=== PATIENT | male | born 1955 | race Caucasian/White ===

== ENCOUNTER 2016-10-01 14:13 | Emergency (ER) ==
[2016-10-01 14:21] VITALS: BP 150/81
[2016-10-01] MEDS ORDERED: TORADOL IM ONE (14:49)
[2016-10-01] MEDS ORDERED: TORADOL ONE (14:50)
--- NOTE | 2016-10-01 14:50 | PROVIDER DOCUMENTATION ---
HPI-General Adult - General Source: patient - History of Present Illness -Gen Adult Nature of Presenting Problems: 61 YOM PRESENTS TO ER WITH CC OF FEVER X 2 DAY PT REPORTS HOME HEALTH CHECKED IT AND IT WAS 101.00. DENIES TAKING ANY THING FOR IT. PT REPORTS TAKE CHRONIC PAIN MEDICATIONS FOR RA DIDNT NAME THE PRESCRIPTION. PT ALSO COMPLAINS OF CHILLS ,INSOMNIA,COUGH AND HEADACHE. Location of Pain/Injury: reports: generalized Quality of Pain: reports: aching Severity: reports: moderate Onset/Duration: reports: 2 days ago Timing: reports: still present Similar Symptoms Previously?: No Recently seen or treated by another doctor?: No <Zenaida Hernandez - Last Filed: 10/01/16 16:40> <Steve Ernst - Last Filed: 10/01/16 16:46> - General Chief Complaint: Flu Symptoms Stated Complaint: FLU SX Time Seen by Provider: 10/01/16 14:46 Allergies/Adverse Reactions: Patient Allergies Allergy/AdvReac Type Severity Reaction Status Date / Time No Known Allergies Allergy Verified 10/06/15 22:07 Home Medications: Home Medication List Medication Instructions Recorded Confirmed Last Taken Type Albuterol 2.5MG/Ipratrop 0.5MG 3 ml INH RTTID 10/06/15 05/29/16 05/28/16 20:00 History [Dutashib (A & A)] Amlodipine Besylate 10 mg PO DAILY 10/06/15 05/29/16 05/29/16 06:30 History Aspirin 325 mg PO DAILY 10/06/15 05/29/16 05/29/16 06:30 History Cetirizine HCl [Zyrtec] 10 mg PO DAILY 10/06/15 05/29/16 05/29/16 06:30 History Escitalopram Oxalate [Lexapro] 20 mg PO DAILY 10/06/15 05/29/16 05/29/16 06:30 History Hydralazine HCl 100 mg PO TID 10/06/15 05/29/16 05/29/16 06:30 History Omeprazole 40 mg PO DAILY 10/06/15 05/29/16 05/29/16 06:30 History Pravastatin Sodium 20 mg PO QHS 10/06/15 05/29/16 05/28/16 20:00 History Metoprolol Succinate E.r. [Toprol 100 mg PO DAILY 05/29/16 05/29/16 05/29/16 06: 30 History Xl] Hydrocodone/APAP 7.5 mg/325 mg 1 each PO Q6H PRN PRN #20 tablet 06/01/16 Unknown Rx [[place]-7.5] Isosorbide Mononitrate E.r. [Imdur] 30 mg PO DAILY #30 tablet 06/01/16 Unknown Rx Review of Systems - Adult - REVIEW OF SYSTEMS - ADULT Constitutional: reports: chills, fever. denies: fatique, night sweats, weight loss Eyes: reports: no symptoms reported Ears, Nose, Mouth & Throat: denies: ear pain, sinus problem, throat pain Cardiovascular: denies: chest pain, irregular heart rate, orthopnea, syncope Respiratory: reports: cough. denies: pleurisy, shortness of breath, wheezing Gastrointestinal: denies: abdominal pain, diarrhea, nausea, vomiting Genitourinary: reports: no symptoms reported Musculoskeletal: reports: other (MYALGIAS). denies: joint pain, joint swelling , muscle aches Integumentary: reports: no symptoms reported Neurological: reports: headache/migraines. denies: dizziness/vertigo, paresthesia, seizure, slurred speech Psychiatric: reports: insomnia. denies: alcohol/drug dependence, depression, emotional problems Endocrine: reports: no symptoms reported Hematologic/Lymphatic: reports: no symptoms reported Allergic/Immunologic: reports: no symptoms reported All Other Systems: Reviewed and Negative <Zenaida Hernandez - Last Filed: 10/01/16 16:40> Past History - Adult - PAST MEDICAL HISTORY-ADULT Review of Records: reports: Nursing Assessment Review Major Childhood Illnesses: reports: denies history Cardiovascular: reports: HTN, hyperlipidemia Respiratory: reports: asthma, COPD Gastrointestinal: reports: GERD, ulcer Musculoskeletal: reports: arthritis, neck/back injury (neck fracture), other ( sinus fracture) Neurological: reports: TIA - PRIOR SURGERIES/PROCEDURES Surgical/Procedure History: reports: joint replacement - IMMUNIZATION STATUS Childhood Immunizations: See Nurse Assessment Flu Vaccine: See Nurse Assessment - SOCIAL HISTORY Smoking: cigarettes, less than 1 pack/day Provider spent 3-5 mins advising pt. on dangers of tobacco.: Discussed manners to quit use, and f/u contacts for add'l counseling. Substance Use: none/never <Zenaida Hernandez - Last Filed: 10/01/16 16:40> Physical Exam-General - PHYSICAL EXAM-ADULT Initial Vital Signs Reviewed: Yes - CONSTITUTIONAL General Appearance: alert, no apparent distress. negative: appears well (ILL APPEARING) - EYES Eyes: PERRL/EOMI - HEAD, EARS, NOSE, MOUTH & THROAT HENMT: moist mucous membranes - NECK Neck: non-tender, full range of motion, supple, normal inspection - RESPIRATORY Respiratory: chest non-tender, no pleuratic chest pain, no respiratory distress , no accessory muscle use, rhonchi (MILD RHONCHI LOWER BASES) - CARDIOVASCULAR Cardiovascular: regular rate, rhythm, no edema, no gallop, no JVD, no murmur - GASTROINTESTINAL (ABDOMEN) Abdominal Exam: non tender, soft, no organomegaly, no pulsatile mass - MUSCULOSKELETAL Extremity: normal range of motion, non-tender - SKIN Integumentary: normal color, normal turgor, warm/dry - PSYCHIATRIC Psych/Mental Status: normal mood/affect, normal thought content, normal thought process, oriented x 3 <DavidZenaida - Last Filed: 10/01/16 16:40> Progress - PLAN OF CARE/RESULTS Progress/Plan/Lab Results: Orders Category Date Time Status cxr [CHEST-2 VIEWS] [RAD] Stat Exams 10/01/16 14:45 Ordered BLOOD CULTURE [BLDCUL] Stat Lab 10/01/16 14:48 Ordered CBC WITH ELECTRONIC DIFF [HEME] Stat Lab 10/01/16 14:46 Ordered CMP [COMPREHENSIVE METABOLIC PANEL] [CHEM] Stat Lab 10/01/16 14:46 Ordered Flu [INFLUENZA SCREEN PL] Stat Lab 10/01/16 14:20 Received LACTATE, PLASMA [CHEM] Stat Lab 10/01/16 14:49 Uncollected UA NIMS W/REFLEX CULT [URINALYSIS] Stat Lab 10/01/16 14:47 Uncollected UDS [URINE DRUG SCREEN] Stat Lab 10/01/16 14:47 Uncollected Vital Signs - 24 hr 10/01/16 14:18 Temperature 99.4 F Pulse Rate 62 Respiratory 18 Rate Blood Pressure 150/81 O2 Sat by Pulse 100 Oximetry Laboratory Tests 10/01/16 10/01/16 10/01/16 14:20 15:00 15:00 WBC 6.18 RBC 5.50 Hgb 16.6 Hct 47.4 MCV 86.2 MCH 30.2 MCHC 35.0 RDW Std Deviation 14.2 Plt Count 138 MPV 10.6 H Immature Gran % (Auto) 0.2 Neut % (Auto) 67.8 Lymph % (Auto) 24.3 [place] % (Auto) 7.1 Eos % (Auto) 0.3 Baso % (Auto) 0.3 Immature Gran # (Auto) 0.01 Neut # (Auto) 4.19 Lymph # (Auto) 1.50 [place] # (Auto) 0.44 Eos # (Auto) 0.02 Baso # (Auto) 0.02 Sodium 130 L Potassium 3.9 Chloride 92 L Carbon Dioxide 25 Anion Gap 13 BUN 13 Creatinine 1.1 Estimated GFR/1.73 m2 > 60 BUN/Creatinine Ratio 12 Glucose 85 Calculated Osmolality 260 Calcium 9.6 Total Bilirubin 0.40 AST 379 H ALT 592 H Alkaline Phosphatase 56 Total Protein 7.7 Albumin 4.6 Globulin 3.0 Albumin/Globulin Ratio 1.0 Influenza A (Rapid) NEGATIVE Influenza B (Rapid) NEGATIVE Laboratory Tests 10/01/16 10/01/16 10/01/16 14:20 15:00 15:00 WBC 6.18 RBC 5.50 Hgb 16.6 Hct 47.4 MCV 86.2 MCH 30.2 MCHC 35.0 RDW Std Deviation 14.2 Plt Count 138 MPV 10.6 H Immature Gran % (Auto) 0.2 Neut % (Auto) 67.8 Lymph % (Auto) 24.3 [place] % (Auto) 7.1 Eos % (Auto) 0.3 Baso % (Auto) 0.3 Immature Gran # (Auto) 0.01 Neut # (Auto) 4.19 Lymph # (Auto) 1.50 [place] # (Auto) 0.44 Eos # (Auto) 0.02 Baso # (Auto) 0.02 Sodium 130 L Potassium 3.9 Chloride 92 L Carbon Dioxide 25 Anion Gap 13 BUN 13 Creatinine 1.1 Estimated GFR/1.73 m2 > 60 BUN/Creatinine Ratio 12 Glucose 85 Calculated Osmolality 260 Calcium 9.6 Total Bilirubin 0.40 AST 379 H ALT 592 H Alkaline Phosphatase 56 Total Protein 7.7 Albumin 4.6 Globulin 3.0 Albumin/Globulin Ratio 1.0 Plasma Lactate Urine Source Urine Color Urine Clarity Urine Turbidity Urine pH Ur Specific [place] Urine Protein Ur Glucose (Stick) Urine Ketones Ur Ketones (Stick) Urine Blood Urine Nitrite Urine Bilirubin Urine Urobilinogen Urobilinogen Dipstick Urine Leukocytes Urine WBC (Auto) Urine RBC (Auto) U Epithel Cells (Auto) Urine Bacteria (Auto) Urine Microscopic RBC Urine WBC Ur Epithelial Cells Urine Crystals Urine Bacteria Urine Casts Urine Yeast Urine Glucose Urine Opiates Screen Ur Oxycodone Screen Urine Methadone Screen Ur Barbituates Screen Ur Tricyclics Screen Ur Phencyclidine Scrn Ur Amphetamines Screen U Methamphetamines Scrn Urine MDMA Screen U Benzodiazepines Scrn Urine Cocaine Screen U Cannabinoids Screen Influenza A (Rapid) NEGATIVE Influenza B (Rapid) NEGATIVE 10/01/16 10/01/16 10/01/16 15:00 15:00 15:30 WBC RBC Hgb Hct MCV MCH MCHC RDW Std Deviation Plt Count MPV Immature Gran % (Auto) Neut % (Auto) Lymph % (Auto) [place] % (Auto) Eos % (Auto) Baso % (Auto) Immature Gran # (Auto) Neut # (Auto) Lymph # (Auto) [place] # (Auto) Eos # (Auto) Baso # (Auto) Sodium Potassium Chloride Carbon Dioxide Anion Gap BUN Creatinine Estimated GFR/1.73 m2 BUN/Creatinine Ratio Glucose Calculated Osmolality Calcium Total Bilirubin AST ALT Alkaline Phosphatase Total Protein Albumin Globulin Albumin/Globulin Ratio Plasma Lactate 1.0 Urine Source Cancelled CLEAN CATCH Urine Color Cancelled YELLOW Urine Clarity CLEAR Urine Turbidity Cancelled Urine pH Cancelled 6.5 Ur Specific [place] Cancelled 1.015 Urine Protein Cancelled TRACE A Ur Glucose (Stick) Cancelled Urine Ketones NEGATIVE Ur Ketones (Stick) Cancelled Urine Blood Cancelled NEGATIVE Urine Nitrite Cancelled NEGATIVE Urine Bilirubin Cancelled NEGATIVE Urine Urobilinogen NORMAL Urobilinogen Dipstick Cancelled Urine Leukocytes Cancelled Urine WBC (Auto) Cancelled Urine RBC (Auto) Cancelled U Epithel Cells (Auto) Cancelled Urine Bacteria (Auto) Cancelled Urine Microscopic RBC Not Reportable Urine WBC NEGATIVE Ur Epithelial Cells <10 Urine Crystals NONE SEEN Urine Bacteria 1+ Urine Casts NONE SEEN Urine Yeast NONE SEEN Urine Glucose NEGATIVE Urine Opiates Screen Ur Oxycodone Screen Urine Methadone Screen Ur Barbituates Screen Ur Tricyclics Screen Ur Phencyclidine Scrn Ur Amphetamines Screen U Methamphetamines Scrn Urine MDMA Screen U Benzodiazepines Scrn Urine Cocaine Screen U Cannabinoids Screen Influenza A (Rapid) Influenza B (Rapid) 10/01/16 15:30 WBC RBC Hgb Hct MCV MCH MCHC RDW Std Deviation Plt Count MPV Immature Gran % (Auto) Neut % (Auto) Lymph % (Auto) [place] % (Auto) Eos % (Auto) Baso % (Auto) Immature Gran # (Auto) Neut # (Auto) Lymph # (Auto) [place] # (Auto) Eos # (Auto) Baso # (Auto) Sodium Potassium Chloride Carbon Dioxide Anion Gap BUN Creatinine Estimated GFR/1.73 m2 BUN/Creatinine Ratio Glucose Calculated Osmolality Calcium Total Bilirubin AST ALT Alkaline Phosphatase Total Protein Albumin Globulin Albumin/Globulin Ratio Plasma Lactate Urine Source Urine Color Urine Clarity Urine Turbidity Urine pH Ur Specific [place] Urine Protein Ur Glucose (Stick) Urine Ketones Ur Ketones (Stick) Urine Blood Urine Nitrite Urine Bilirubin Urine Urobilinogen Urobilinogen Dipstick Urine Leukocytes Urine WBC (Auto) Urine RBC (Auto) U Epithel Cells (Auto) Urine Bacteria (Auto) Urine Microscopic RBC Urine WBC Ur Epithelial Cells Urine Crystals Urine Bacteria Urine Casts Urine Yeast Urine Glucose Urine Opiates Screen NONE DETECTED Ur Oxycodone Screen NONE DETECTED Urine Methadone Screen NONE DETECTED Ur Barbituates Screen NONE DETECTED Ur Tricyclics Screen NONE DETECTED Ur Phencyclidine Scrn NONE DETECTED Ur Amphetamines Screen NONE DETECTED U Methamphetamines Scrn NONE DETECTED Urine MDMA Screen NONE DETECTED U Benzodiazepines Scrn NONE DETECTED Urine Cocaine Screen NONE DETECTED U Cannabinoids Screen NONE DETECTED Influenza A (Rapid) Influenza B (Rapid) - XRAY 1 XRAY: Bilateral XRAY Study: Chest Impression: Normal XRAY Interpretation: NAD <Zenaida Hernandez - Last Filed: 10/01/16 16:40> - REASSESSMENT Reassessment #1 Time Reassessed: 16:40 (discussed fu on liver and getting off norco because of the tylenol, get results of hep panal from her doctor) Status: improving <Steve Ernst - Last Filed: 10/01/16 16:46> Departure - Departure Time of Disposition Order: 16:40 Certified Medical Emergency: Emergent <Zenaida Hernandez - Last Filed: 10/01/16 16:40> - Departure Time of Disposition Order: 16:46 Certified Medical Emergency: Emergent <Steve Ernst - Last Filed: 10/01/16 16:46> - Departure DIAGNOSIS: Viral syndrome Disposition: HOME 01 Condition: Stable Additional Instructions: FOLLOW UP WITH PCP IF SYMPTOMS CONTINUE ED Follow Up Instructions: You have been treated by a care provider in the Emergency Department. These instructions are being provided to you so you can have an understanding of how to care for yourself upon discharge. Upon discharge from the Emergency Department, you are responsible for making arrangements for follow-up care by a physician of your choice. Take all prescribed medications as directed. Return to the Emergency Department immediately for any new or worsening symptoms. You may call the Physician Referral phone number at [phone] to obtain a list of Physicians who are taking new patients. Referrals: Sally Baires CRNP [Primary Care Provider] - Attestation - Scribe Verification/Attestation Scribe:: Zenaida Hernandez Acting as Scribe for:: Steve Ernst Scribe documention review:: This chart was documented by a scribe and accurately reflects the service the provider performed and the decisions made by the provider. <Zenaida Hernandez - Last Filed: 10/01/16 16:40> Physician Attestation
[2016-10-01 15:13] LABS: MANUAL DIFF NEEDED? NO
[2016-10-01 15:20] LABS: BASO% 0.3 % (0.0-0.8); EOS# 0.02 X1000 (0.0-0.7); EOS% 0.3 % (0.0-10.0); HEMATOCRIT 47.4 % (42.0-52.0); HEMOGLOBIN 16.6 g/dL (14.0-18.0); IMM GRAN# 0.01 X1000 (0.0-0.04); IMM GRAN% 0.2 % (0.0-0.5); LYMPH% 24.3 % (20.5-51.1); MCH 30.2 PG (27-31); MCV 86.2 FL (81-99); MONO# 0.44 X1000 (0.11-0.59); MONO% 7.1 % (1.7-9.3); MPV 10.6 FL (7.4-10.4); NEUT% 67.8 % (42.2-75.2); PLT 138 X1000 (130-400)
[2016-10-01 15:32] LABS: AGAP 13; ALBUMIN 4.6 g/dL (3.5-5.0); ALKALINE PHOSPHATASE 56 U/L (32-122); BUN 13 mg/dL (8-22); CALCIUM 9.6 mg/dL (8.8-10.2); CHLORIDE 92 mmol/L (98-107); COSMO 260; GOT 379 U/L (10-34); GPT 592 U/L (10-44); POTASSIUM 3.9 mmol/L (3.5-5.1); SODIUM 130 mmol/L (136-145); TCO2 25 mmol/L (25-35); TOTAL PROTEIN 7.7 g/dL (6.3-8.3)
[2016-10-01 15:50] LABS: URINE CULTURE PL NEEDED? NO; URINE SOURCE CLEAN CATCH
[2016-10-01 16:01] LABS: BILIRUBIN URINE NEGATIVE (NEGATIVE); BLOOD URINE NEGATIVE (NEGATIVE); CLARITY CLEAR (CLEAR); COLOR YELLOW; GLUCOSE URINE NEGATIVE (NEGATIVE); LEUKOCYTES URINE NEGATIVE (NEGATIVE); NITRITE URINE NEGATIVE (NEGATIVE); PH URINE 6.5; PROTEIN URINE TRACE mg/dL (NEGATIVE); SP GRAVITY URINE 1.015; UROBILINOGEN URINE NORMAL
[2016-10-01 16:02] LABS: UR AMPHETAMINES QUAL NONE DETECTED (NONE DETECT); UR BARBITUATES QUAL NONE DETECTED (NONE DETECT); UR BENZODIAZEPIN QUAL NONE DETECTED (NONE DETECT); UR CANNABINOIDS QUAL NONE DETECTED (NONE DETECT); UR COCAINE QUAL NONE DETECTED (NONE DETECT); UR MDMA QUAL NONE DETECTED (NONE DETECT); UR METHADONE QUAL NONE DETECTED (NONE DETECT); UR METHAMPHETAMINE QUAL NONE DETECTED (NONE DETECT); UR OPIATES QUAL NONE DETECTED (NONE DETECT); UR OXYCODONE QUAL NONE DETECTED (NONE DETECT); UR PCP QUAL NONE DETECTED (NONE DETECT); UR TCA QUAL NONE DETECTED (NONE DETECT)
--- NOTE | 2016-10-01 16:03 | Diag Imaging Result Document ---
PROCEDURE NAME: CHEST-2 VIEWS - 10/01/2016 FRONTAL AND LATERAL CHEST, TWO VIEWS: COMPARISON: 05/29/2016. FINDINGS: The lungs are well expanded. The heart is not enlarged. The vessels are not distended. There are no infiltrates. No pleural effusions. Mild scoliosis. IMPRESSION: No pneumonia.
[2016-10-01 16:13] LABS: URINE CAST NONE SEEN /LPF; URINE CRYSTAL NONE SEEN /HPF; URINE EPITHELIAL CELLS <10 /HPF (<10)
== END 2016-10-01 17:02 | disposition home or self-care (01) ==
LOC: P.ED 14:13
DX: B34.9 Viral infection, unspecified (principal); R50.9 Fever, unspecified; M06.9 Rheumatoid arthritis, unspecified; R05 Cough; R51 Headache; M79.1 Myalgia; I10 Essential (primary) hypertension; E78.5 Hyperlipidemia, unspecified; J45.909 Unspecified asthma, uncomplicated; J44.9 Chronic obstructive pulmonary disease, unspecified; K21.9 Gastro-esophageal reflux disease without esophagitis; M19.90 Unspecified osteoarthritis, unspecified site; Z79.82 Long term (current) use of aspirin; F17.210 Nicotine dependence, cigarettes, uncomplicated; Z79.899 Other long term (current) drug therapy; Z71.6 Tobacco abuse counseling; Z86.73 Personal history of transient ischemic attack (TIA), and cerebral infarction without residual deficits
CPT/HCPCS: 71020; 80053; 80074; 80305; 81001; 83605; 85025; 87040; 87804; 96372; J1885

== ENCOUNTER 2018-07-31 11:03 | Inpatient (IN) ==
[2018-07-31] MEDS ORDERED: NS 1,000 ML IV ONE ×2 (11:21→17:12)
[2018-07-31] MEDS ORDERED: ATIVAN IV ONE ×2 (11:21→13:45)
[2018-07-31] MEDS ORDERED: LABETALOL IV ONE (11:23)
[2018-07-31 11:49] LABS: URINE SOURCE CLEAN CATCH
[2018-07-31 11:52] LABS: BASO# 0.03 X1000 (0.0-0.2); BASO% 0.7 % (0.0-0.8); EOS# 0.04 X1000 (0.0-0.7); EOS% 0.9 % (0.0-10.0); HEMATOCRIT 42.6 % (42.0-52.0); MCH 30.9 PG (27-31); MCHC 35.2 g/dL (33-37); MCV 87.8 FL (81-99); MONO# 0.27 X1000 (0.11-0.59); MPV 11.1 FL (7.4-10.4); NEUT# 2.84 X1000 (1.4-6.5); NEUT% 63.4 % (42.2-75.2); PLT 140 X1000 (130-400); RBC 4.85 XMIL (4.7-6.1); WBC 4.48 X1000 (4.8-10.8)
[2018-07-31 11:54] LABS: BILIRUBIN URINE NEGATIVE (NEGATIVE); BLOOD URINE NEGATIVE (NEGATIVE); CLARITY CLEAR (CLEAR); COLOR YELLOW; GLUCOSE URINE NEGATIVE (NEGATIVE); KETONE URINE NEGATIVE (NEGATIVE); LEUKOCYTES URINE NEGATIVE (NEGATIVE); NITRITE URINE NEGATIVE (NEGATIVE); PH URINE 6.5; PROTEIN URINE NEGATIVE (NEGATIVE); SP GRAVITY URINE <= 1.005; UROBILINOGEN URINE 0.2 EU/dL (0.2-1.0)
[2018-07-31 12:11] LABS: AGAP 17; ALB/GLOB RATIO 1.4; ALKALINE PHOSPHATASE 62 U/L (32-122); AMYLASE 68 U/L (20-200); BUN 6 mg/dL (8-22); CALCIUM 9.2 mg/dL (8.8-10.2); CHLORIDE 96 mmol/L (98-107); COSMO 275; CREATININE 0.8 mg/dL (0.7-1.2); ESTIMATED GFR > 60; GLUCOSE 131 mg/dL (70-104); GOT 140 U/L (10-34); GPT 95 U/L (10-44); LIPASE 35 U/L (13-60); MAGNESIUM 1.6 mg/dL (1.5-2.7); SODIUM 138 mmol/L (136-145); TCO2 25 mmol/L (25-35); TOTAL BILIRUBIN 0.41 mg/dL (0.20-1.00); TOTAL PROTEIN 6.8 g/dL (6.3-8.3)
[2018-07-31 12:11] LABS: UR AMPHETAMINES QUAL NONE DETECTED (NONE DETECT); UR BARBITUATES QUAL NONE DETECTED (NONE DETECT); UR BENZODIAZEPIN QUAL NONE DETECTED (NONE DETECT); UR CANNABINOIDS QUAL NONE DETECTED (NONE DETECT); UR COCAINE QUAL NONE DETECTED (NONE DETECT); UR METHADONE QUAL NONE DETECTED (NONE DETECT); UR OPIATES QUAL NONE DETECTED (NONE DETECT); UR OXYCODONE QUAL NONE DETECTED (NONE DETECT); UR PCP QUAL NONE DETECTED (NONE DETECT)
[2018-07-31 12:25] LABS: URINE BACTERIA NEGATIVE /HFP; URINE EPITHELIAL CELLS <10 /HPF (<10); URINE RBC <10 /HPF (<10); URINE WBC <10 /HPF (<10)
[2018-07-31] MEDS ORDERED: NORVASC PO ONE (13:45)
[2018-07-31] MEDS ORDERED: APRESOLINE IV ONE (13:45)
[2018-07-31] MEDS ORDERED: COMPAZINE IV ONE (15:08)
[2018-07-31] MEDS ORDERED: ZOFRAN IV PRN (16:10)
[2018-07-31] MEDS ORDERED: NS NEB INH SCH (17:12)
[2018-07-31] MEDS: NS 1,000 ML IV SCH (18:30)
[2018-07-31] MEDS: PROTONIX IV SCH (18:31)
[2018-07-31] MEDS: LOVENOX SUBQ SCH (18:31)
[2018-07-31] MEDS: NICODERM PATCH TD PRN (18:37)
[2018-07-31] MEDS ORDERED: NORCO-10 PO PRN (18:41)
[2018-07-31] MEDS: NORCO-10 PO PRN (19:03)
--- NOTE | 2018-07-31 19:55 | Diag Imaging Result Doc PS360 ---
CHEST-2 VIEWS - 07/31/2018 INDICATION: hypoxia COMPARISON: 01/19/2018 FINDINGS: Stable hyperexpanded lungs compatible with COPD. There are chronic right-sided rib deformities. No infiltrates or edema. No pneumothorax or pleural effusion. Heart size and pulmonary vascularity is normal. IMPRESSION: COPD. Electronically signed by Rai Garza 07/31/2018 7:53 PM
[2018-07-31] MEDS: XOPENEX NEB INH PRN (22:43)
--- NOTE | 2018-07-31 22:49 | HISTORY AND PHYSICAL ---
PCP: TAMARA Santos. CHIEF COMPLAINT: Nausea, vomiting, and tremors. HISTORY OF PRESENT ILLNESS: Mr. Joseph is a 63-year-old male with a past medical history of hypertension, COPD, osteoarthritis, bipolar disorder and heavy alcohol use who presents to the emergency department today with complaints of nausea and vomiting along with some associated diarrhea lasting for about the past 3 days or so. He denies abdominal pain. He denies hematemesis, hematochezia or melena. He states he is vomiting yellowish green fluid. He has been unable to eat or drink for the past day or so. He does have a history of heavy alcohol use. He states that this morning he had a few beers but he states the past couple days he has not had any alcohol beverages. He claims his typical alcohol use is around a pack of beer per week. He does have a nonproductive cough but no shortness of breath. He does have COPD and appears to be about at his baseline. In evaluation in the ER found him to be quite hypertensive with initial blood pressure 221/135, mildly tachycardic as well. He denies any known fever and his O2 saturations in the high 90s. His labs showed elevated liver enzymes consistent with alcohol abuse. AST 140, ALT 95 and his toxicology positive for alcohol level 104. He will be admitted here at [facility] for further evaluation and treatment regarding acute alcoholic intoxication and uncontrolled hypertension. PAST MEDICAL HISTORY: 1. Hypertension. 2. Hyperlipidemia. 3. COPD. 4. Osteoarthritis. 5. Seasonal allergic rhinitis. 6. Questionable bipolar disorder. PAST SURGICAL HISTORY: Left hip surgery and left ulnar nerve repair. FAMILY HISTORY: Notable for stroke, kidney stones, coronary artery disease, and breast cancer. SOCIAL HISTORY: He smokes about a half a pack per day and he states that he drinks about a six- pack of beer per week. He lives alone and he denies any illicit drug use. REVIEW OF SYSTEMS: Fourteen point review of systems completed and negative except for those mentioned in the HPI. His current symptoms include nausea, vomiting, and tremors. HOME MEDICATIONS: Waiting to be reconciled. ALLERGIES: No known drug allergies. PHYSICAL EXAMINATION: VITAL SIGNS: Temperature 97.5 degrees, heart rate 111, respiratory rate 22, blood pressure 154/81, O2 saturation 98% on room air. GENERAL: This is a chronically ill appearing, unkept 63-year-old male. He is in no acute distress answering questions appropriately. NEURO: He is alert and oriented without focal deficits. Strength is equal bilaterally. HEENT: His head is atraumatic, normocephalic. Pupils are equal, round, reactive to light. Oral mucosa is dry. NECK: Trachea is midline. There is no JVD. CHEST: Lung sounds clear bilaterally. Some scattered rhonchi. No wheezing. CARDIOVASCULAR: Rate and rhythm are regular. He is a bit tachycardic, S1, S2 is noted. ABDOMEN: Soft and nontender. Bowel sounds are positive. EXTREMITIES: There is no edema. Capillary refill is brisk. Pedal pulses are 2 +. SKIN: Warm, dry, intact. LABS: WBC 4.4, hemoglobin 15.0, hematocrit 42.6, platelets 140,000. Sodium 138 , potassium 4.0, BUN 6, creatinine 0.8, AST 140, ALT 95, alkaline phosphatase 62, amylase 68, lipase 35. Toxicology. Plasma serum ethyl alcohol 104. ASSESSMENT AND PLAN: 1. Nausea, vomiting, likely secondary to alcohol withdrawal. We will get a abdominal ultrasound secondary to his transaminitis as well. We will provide IV fluid hydration and p.r.n. Ativan, Librium taper, and a banana bag daily. Consult with Workers Compensation Specialist regarding alcohol abuse resources and provide alcohol cessation education. 2. Uncontrolled hypertension. His blood pressure does appear to be a bit better controlled now. Last blood pressure 154/81. Will continue home medications, PRN hydralazine and monitor closely. 3. Transaminitis. Again, we will get an abdominal ultrasound and hepatitis panel. 4. History of chronic obstructive pulmonary disease. We will obtain a chest x- ray and do bronchodilator therapy as needed. Resume his home medications. 5. Tobacco abuse. We will do nicotine patch as needed and provide daily tobacco cessation education. 6. Hyperlipidemia. We will resume his home medications and obtain lipid profile. 7. Deep venous thrombosis prophylaxis Lovenox. 8. Gastrointestinal prophylaxis Protonix. 9. History of osteoarthritis. We will resume his home medications. Dictated by TAMARA Hayden for Bridgette Apodaca MD cc: TAMARA Goldstein [facility]
[2018-08-01] MEDS: LABETALOL IV PRN ×3 (00:55→22:07)
[2018-08-01] MEDS: NORCO-10 PO PRN ×4 (01:07→20:49)
[2018-08-01] MEDS: NS 1,000 ML IV SCH (07:28)
[2018-08-01 07:40] LABS: BASO# 0.02 X1000 (0.0-0.2); BASO% 0.4 % (0.0-0.8); EOS# 0.16 X1000 (0.0-0.7); EOS% 3.4 % (0.0-10.0); HEMATOCRIT 39.5 % (42.0-52.0); HEMOGLOBIN 13.5 g/dL (14.0-18.0); LYMPH# 1.87 X1000 (1.2-3.4); LYMPH% 39.7 % (20.5-51.1); MCH 30.7 PG (27-31); MCHC 34.2 g/dL (33-37); MCV 89.8 FL (81-99); MONO# 0.47 X1000 (0.11-0.59); MPV 11.5 FL (7.4-10.4); NEUT# 2.19 X1000 (1.4-6.5); NEUT% 46.5 % (42.2-75.2); PLT 109 X1000 (130-400); RDW 14.1 % (11.5-14.5); WBC 4.71 X1000 (4.8-10.8)
[2018-08-01 07:57] LABS: MAGNESIUM 1.7 mg/dL (1.5-2.7); PHOSPHORUS 3.1 mg/dL (2.7-4.5)
[2018-08-01 08:02] LABS: AGAP 12; ALB/GLOB RATIO 1.6; ALBUMIN 3.7 g/dL (3.5-5.0); ALKALINE PHOSPHATASE 59 U/L (32-122); BUN 10 mg/dL (8-22); CALCIUM 8.7 mg/dL (8.8-10.2); CHLORIDE 99 mmol/L (98-107); COSMO 276; CREATININE 0.9 mg/dL (0.7-1.2); ESTIMATED GFR > 60; GLUCOSE 125 mg/dL (70-104); GOT 73 U/L (10-34); GPT 65 U/L (10-44); POTASSIUM 3.7 mmol/L (3.5-5.1); SODIUM 138 mmol/L (136-145); TCO2 27 mmol/L (25-35); TOTAL BILIRUBIN 0.74 mg/dL (0.20-1.00)
[2018-08-01 08:16] LABS: FREE T4 1.39 ng/dL (0.93-1.70); TSH 3.43 uIUmL (0.27-4.20)
[2018-08-01] MEDS ORDERED: APRESOLINE PO SCH (09:00)
--- NOTE | 2018-08-01 10:06 | Diag Imaging Result Doc PS360 ---
US ABDOMEN-COMPLETE - 08/01/2018 INDICATION: n/v/d, transaminitis COMPARISON: CT from 09/12/2017 FINDINGS: There is significant diffuse fatty change of the liver. There is a small 1 cm left renal cyst. Otherwise both kidneys are normal. The gallbladder, pancreas, and spleen are normal. Spleen size is 10.5 x 3.3 cm. Common bile duct measures 7 mm. Aorta, IVC, and main portal vein are patent. IMPRESSION: Hepatic steatosis. Electronically signed by Rai Garza 08/01/2018 10:04 AM
[2018-08-01] MEDS: LIBRIUM PO SCH ×3 (10:19→20:49)
[2018-08-01] MEDS: ASPIRIN PO SCH (10:20)
[2018-08-01] MEDS: M.V.I.-12 10 ML, FOLIC ACID 1 MG, MAGNESIUM SULFATE 1 GM, THIAMINE 100 MG in NS 1,000 ML IV SCH (10:20)
[2018-08-01] MEDS: NORVASC PO SCH (10:20)
[2018-08-01] MEDS: ATIVAN IV PRN ×4 (12:28→23:09)
[2018-08-01] MEDS: APRESOLINE IV PRN ×2 (12:29→23:40)
--- NOTE | 2018-08-01 14:02 | PROGRESS NOTE ---
DATE: 08/01/2018 SUBJECTIVE: The patient is resting comfortably in bed. He is sitting up eating breakfast. He does have tremor. OBJECTIVE: Vital Signs: Temperature 97 degrees, blood pressure 185/97, heart rate 84, respirations 22, O2 saturations 97% on room air. General: This is a thin, cachectic, elderly male lying in bed in no acute distress. Heart: S1, S2 normal. Regular rate and rhythm. Lungs: Clear to auscultation bilaterally. Abdomen: Positive bowel sounds. Soft, nontender, nondistended. Extremities: No edema, no cyanosis, no calf tenderness. Neurologic: The patient is alert and oriented x3. LABS: AST 73, ALT 65, total bilirubin 0.7, glucose 125. Sodium 138, potassium 3.7, chloride 99, CO2 27. ASSESSMENT AND PLAN: 1. Acute alcohol intoxication. The patient has been counseled about alcohol cessation. We will continue on Librium and Ativan. 2. Alcoholic hepatitis. The patient's liver function tests are improved. The abdominal ultrasound does show severe fatty liver disease. 3. Uncontrolled hypertension. Will adjust the patient's antihypertensive regimen. 4. Gastrointestinal prophylaxis. Continue on Protonix. 5. Deep vein thrombosis prophylaxis. Continue on Lovenox. cc: Bridgette Apodaca MD MTDD
[2018-08-01] MEDS ORDERED: CATAPRES PO ONE (14:33)
[2018-08-01] MEDS: LOVENOX SUBQ SCH (18:34)
[2018-08-01] MEDS: PROTONIX IV SCH (18:34)
[2018-08-01] MEDS: APRESOLINE PO SCH (18:34)
[2018-08-01 23:21] LABS: URINE SOURCE CLEAN CATCH
[2018-08-01 23:24] LABS: UR EPITHELIAL CELLS <10 /HPF (<10); URINE BACTERIA NEGATIVE /HPF; URINE RBC <10 /HPF (<10); URINE WBC <10 /HPF (<10)
[2018-08-01 23:55] LABS: BILIRUBIN URINE NEGATIVE (NEGATIVE); BLOOD URINE NEGATIVE (NEGATIVE); COLOR STRAW; GLUCOSE URINE NEGATIVE (NEGATIVE); KETONE URINE NEGATIVE (NEGATIVE); PROTEIN URINE NEGATIVE (NEGATIVE); TURBIDITY URINE CLEAR (CLEAR); UROBILINOGEN URINE NORMAL (NORMAL)
[2018-08-01 23:56] LABS: LEUKOCYTES URINE NEGATIVE (NEGATIVE); NITRITE URINE NEGATIVE (NEGATIVE)
[2018-08-02] MEDS: NS 1,000 ML IV SCH ×2 (00:34→10:08)
[2018-08-02] MEDS: APRESOLINE PO SCH ×4 (02:29→20:18)
[2018-08-02] MEDS: LIBRIUM PO SCH ×4 (02:29→20:18)
[2018-08-02] MEDS: ATIVAN IV PRN ×8 (02:40→21:56)
[2018-08-02] MEDS ORDERED: ATIVAN IV ONE (05:50)
[2018-08-02] MEDS: NICODERM PATCH TD PRN (06:09)
[2018-08-02 06:47] LABS: BASO# 0.02 X1000 (0.0-0.2); BASO% 0.4 % (0.0-0.8); EOS# 0.19 X1000 (0.0-0.7); EOS% 3.8 % (0.0-10.0); HEMATOCRIT 41.5 % (42.0-52.0); HEMOGLOBIN 14.3 g/dL (14.0-18.0); LYMPH# 1.76 X1000 (1.2-3.4); LYMPH% 34.9 % (20.5-51.1); MCH 30.9 PG (27-31); MCHC 34.5 g/dL (33-37); MCV 89.6 FL (81-99); MONO# 0.39 X1000 (0.11-0.59); MONO% 7.7 % (1.7-9.3); MPV 11.9 FL (7.4-10.4); NEUT# 2.69 X1000 (1.4-6.5); NEUT% 53.2 % (42.2-75.2); PLT 108 X1000 (130-400); RBC 4.63 XMIL (4.7-6.1); WBC 5.05 X1000 (4.8-10.8)
[2018-08-02 07:16] LABS: AGAP 15; ALB/GLOB RATIO 1.5; ALBUMIN 3.8 g/dL (3.5-5.0); ALKALINE PHOSPHATASE 59 U/L (32-122); BUN 6 mg/dL (8-22); CALCIUM 8.9 mg/dL (8.8-10.2); CHLORIDE 101 mmol/L (98-107); COSMO 276; CREATININE 0.8 mg/dL (0.7-1.2); ESTIMATED GFR > 60; GLUCOSE 105 mg/dL (70-104); GOT 48 U/L (10-34); GPT 58 U/L (10-44); POTASSIUM 3.5 mmol/L (3.5-5.1); SODIUM 139 mmol/L (136-145); TCO2 23 mmol/L (25-35); TOTAL BILIRUBIN 0.72 mg/dL (0.20-1.00); TOTAL PROTEIN 6.4 g/dL (6.3-8.3)
[2018-08-02 08:09] LABS: HEPATITIS PROFILE ACUTE SEE COMMENTS
[2018-08-02] MEDS ORDERED: COREG PO SCH (09:00)
[2018-08-02] MEDS: NORVASC PO SCH (09:54)
[2018-08-02] MEDS: ASPIRIN PO SCH (09:54)
[2018-08-02] MEDS: M.V.I.-12 10 ML, FOLIC ACID 1 MG, MAGNESIUM SULFATE 1 GM, THIAMINE 100 MG in NS 1,000 ML IV SCH (10:07)
[2018-08-02] MEDS: XOPENEX NEB INH PRN ×2 (11:30→15:40)
[2018-08-02] MEDS: NORCO-10 PO PRN ×2 (12:26→19:48)
[2018-08-02] MEDS: LABETALOL IV PRN (16:02)
[2018-08-02] MEDS ORDERED: CATAPRES-TTS-1 TD SCH (17:15)
[2018-08-02] MEDS: PROTONIX IV SCH (17:15)
--- NOTE | 2018-08-02 18:00 | PROGRESS NOTE ---
DATE: 08/02/2018 SUBJECTIVE: The patient is resting comfortably in bed. He has no complaints at this time. OBJECTIVE: Vital Signs: Temperature 98 degrees, blood pressure 189/100, heart rate 82, respirations 20, O2 saturation 95% on room air. General: An elderly cachectic male sitting up in bed in no acute distress. Heart: S1, S2 normal. Regular rate and rhythm. Lungs: Clear to auscultation bilaterally. Abdomen: Positive bowel sounds. Soft, nontender, nondistended. Extremities: No edema, no cyanosis. Neuro: The patient is alert and oriented x2. LABS: Reviewed. ASSESSMENT AND PLAN: 1. Accelerated hypertension. Will increase the patient's hydralazine dosage to 100 mg p.o. every 8 hours and also increase the Coreg dosage. If the patient does not respond to these adjustments will likely need to be started on a Cardene drip. Will continue to monitor the blood pressure closely. 2. Alcohol withdrawal. Continue on Librium and Ativan. 3. Alcoholic hepatitis. Stable. 4. Gastrointestinal prophylaxis. Continue on Protonix. 5. Deep vein thrombosis prophylaxis. Will switch the patient to SCDs, given his elevated blood pressure will hold off on the Lovenox. cc: Bridgette Apodaca MD
[2018-08-02] MEDS: COREG PO SCH (20:18)
[2018-08-02] MEDS ORDERED: CATAPRES PO SCH (21:00)
[2018-08-03] MEDS: ATIVAN IV PRN ×4 (01:14→10:39)
[2018-08-03] MEDS: NORCO-10 PO PRN ×4 (01:49→23:38)
[2018-08-03] MEDS: LIBRIUM PO SCH ×4 (03:00→23:40)
[2018-08-03] MEDS: APRESOLINE PO SCH ×3 (05:26→23:38)
[2018-08-03 06:14] LABS: BASO# 0.01 X1000 (0.0-0.2); BASO% 0.2 % (0.0-0.8); EOS# 0.16 X1000 (0.0-0.7); HEMATOCRIT 37.8 % (42.0-52.0); HEMOGLOBIN 12.8 g/dL (14.0-18.0); LYMPH% 22.7 % (20.5-51.1); MCH 30.9 PG (27-31); MCHC 33.9 g/dL (33-37); MCV 91.3 FL (81-99); MONO# 0.44 X1000 (0.11-0.59); MONO% 8.3 % (1.7-9.3); MPV 11.7 FL (7.4-10.4); NEUT# 3.47 X1000 (1.4-6.5); NEUT% 65.8 % (42.2-75.2); PLT 92 X1000 (130-400); RBC 4.14 XMIL (4.7-6.1); RDW 14.1 % (11.5-14.5); WBC 5.28 X1000 (4.8-10.8)
[2018-08-03 06:40] LABS: AGAP 13; ALB/GLOB RATIO 1.2; ALBUMIN 3.2 g/dL (3.5-5.0); ALKALINE PHOSPHATASE 56 U/L (32-122); BUN 7 mg/dL (8-22); CALCIUM 8.4 mg/dL (8.8-10.2); CHLORIDE 104 mmol/L (98-107); COSMO 275; CREATININE 0.8 mg/dL (0.7-1.2); ESTIMATED GFR > 60; GLUCOSE 85 mg/dL (70-104); GOT 39 U/L (10-34); GPT 41 U/L (10-44); POTASSIUM 3.7 mmol/L (3.5-5.1); SODIUM 139 mmol/L (136-145); TCO2 22 mmol/L (25-35); TOTAL BILIRUBIN 0.49 mg/dL (0.20-1.00); TOTAL PROTEIN 5.8 g/dL (6.3-8.3)
--- NOTE | 2018-08-03 07:17 | EKG Report ---
Test Performed on : 07/31/2018 6:25:02 PM Test Reason : sob Blood Pressure : / mmHG Vent. Rate : 105 BPM Atrial Rate : 105 BPM P-R Int : 112 ms QRS Dur : 088 ms QT Int : 360 ms P-R-T Axes : 078 069 081 degrees QTc Int : 475 ms Sinus tachycardia. Moderate voltage criteria for LVH, may be normal variant Borderline ECG When compared with ECG of 31-JUL-2018 16:19, (Unconfirmed) No significant change was found Confirmed by Dmitry DALAL, Javy Schumacher ([id number]) on 08/03/2018 8:39:25 AM
[2018-08-03] MEDS: NORVASC PO SCH (08:09)
[2018-08-03] MEDS: COREG PO SCH ×2 (08:09→23:41)
[2018-08-03] MEDS: ASPIRIN PO SCH (08:09)
[2018-08-03] MEDS: M.V.I.-12 10 ML, FOLIC ACID 1 MG, MAGNESIUM SULFATE 1 GM, THIAMINE 100 MG in NS 1,000 ML IV SCH (08:10)
[2018-08-03] MEDS: NICODERM PATCH TD PRN (08:32)
[2018-08-03] MEDS: XOPENEX NEB INH PRN ×2 (10:29→19:35)
--- NOTE | 2018-08-03 10:45 | EKG Report ---
Test Performed on : 07/31/2018 4:19:31 PM Test Reason : ED. NO EKG ORDER FOR MUSE Blood Pressure : / mmHG Vent. Rate : 108 BPM Atrial Rate : 108 BPM P-R Int : 118 ms QRS Dur : 084 ms QT Int : 352 ms P-R-T Axes : 068 056 071 degrees QTc Int : 471 ms Sinus tachycardia. Minimal voltage criteria for LVH, may be normal variant Borderline ECG When compared with ECG of 19-JAN-2018 20:28, (Unconfirmed) No significant change was found Unconfirmed Result
--- NOTE | 2018-08-03 17:10 | PROGRESS NOTE ---
DATE: 08/03/2018 SUBJECTIVE: The patient is resting comfortably in bed. No acute events noted overnight. OBJECTIVE: Vital Signs: Temperature 98.6 degrees, blood pressure 125/60, heart rate 69, respirations 20, O2 saturation 99% on room air. General: This is a chronically ill-appearing elderly male lying in bed in no acute distress. Heart: S1, S2 normal. Regular rate and rhythm. Lungs: Clear to auscultation bilaterally. Abdomen: Positive bowel sounds. Soft, nontender, nondistended. Extremities: No edema. No cyanosis. Neurologic: The patient is alert and oriented x3. No focal neurologic deficits noted. LABORATORY DATA: Hemoglobin 12, hematocrit 37, platelets 92,000. Sodium 139, potassium 3.7, chloride 104, CO2 22, BUN 7, creatinine 0.8, glucose 85, AST 39, ALT 41, alkaline phosphatase 56. ASSESSMENT AND PLAN: 1. Acute alcohol withdrawal. Continue on Librium and Ativan. 2. Accelerated hypertension. Improved. Continue on the current antihypertensive regimen. 3. Alcoholic hepatitis. Improved. 4. Thrombocytopenia. We will continue to monitor the platelet count closely. The patient is not bleeding at this time. 5. Gastrointestinal prophylaxis. Continue on Protonix. 6. Deep vein thrombosis prophylaxis. The Lovenox was discontinued yesterday. cc: Bridgette Apodaca MD
[2018-08-03] MEDS: SODIUM CHLORIDE 0.9% INJ SCH (17:15)
[2018-08-03] MEDS: PROTONIX IV SCH (17:15)
[2018-08-04] MEDS: LIBRIUM PO SCH ×4 (03:30→20:52)
[2018-08-04] MEDS: APRESOLINE PO SCH ×3 (04:46→20:52)
[2018-08-04] MEDS: XOPENEX NEB INH PRN ×5 (04:50→19:40)
[2018-08-04 06:01] LABS: HEMATOCRIT 39.8 % (42.0-52.0); HEMOGLOBIN 13.3 g/dL (14.0-18.0); MCH 30.9 PG (27-31); MCHC 33.4 g/dL (33-37); MCV 92.6 FL (81-99); MPV 11.9 FL (7.4-10.4); RBC 4.3 XMIL (4.7-6.1); RDW 14.2 % (11.5-14.5); WBC 6.88 X1000 (4.8-10.8)
[2018-08-04 06:17] LABS: AGAP 15; ALB/GLOB RATIO 1.2; ALBUMIN 3.3 g/dL (3.5-5.0); ALKALINE PHOSPHATASE 87 U/L (32-122); BUN 9 mg/dL (8-22); CHLORIDE 102 mmol/L (98-107); COSMO 270; CREATININE 0.7 mg/dL (0.7-1.2); ESTIMATED GFR > 60; GLUCOSE 89 mg/dL (70-104); GOT 57 U/L (10-34); GPT 48 U/L (10-44); POTASSIUM 3.9 mmol/L (3.5-5.1); SODIUM 136 mmol/L (136-145); TCO2 19 mmol/L (25-35); TOTAL BILIRUBIN 0.45 mg/dL (0.20-1.00); TOTAL PROTEIN 6.1 g/dL (6.3-8.3)
[2018-08-04 06:20] LABS: INR 0.92; PROTIME 13.1 Seconds (11.0-16.0)
[2018-08-04] MEDS: NORCO-10 PO PRN ×3 (07:30→22:32)
[2018-08-04] MEDS: COREG PO SCH ×2 (08:04→20:51)
[2018-08-04] MEDS: ASPIRIN PO SCH (08:04)
[2018-08-04] MEDS: NICODERM PATCH TD PRN (08:04)
[2018-08-04] MEDS: NORVASC PO SCH (08:04)
[2018-08-04] MEDS: M.V.I.-12 10 ML, FOLIC ACID 1 MG, MAGNESIUM SULFATE 1 GM, THIAMINE 100 MG in NS 1,000 ML IV SCH (08:59)
--- NOTE | 2018-08-04 12:29 | PROGRESS NOTE ---
DATE: 08/04/2018 SUBJECTIVE: This is a 63-year-old who presented on 07/31/2018 with nausea and vomiting. Past medical history of hypertension, COPD, osteoarthritis, bipolar disorder, heavy alcohol use. Presented to the emergency department with complaints of nausea and vomiting along with some associated diarrhea lasting for 3 or 4 days. Denies abdominal pain. Denies hematemesis, hematochezia, or melena. States he was vomiting yellowish-green fluid. He has been unable to eat and drink for the past day or so. Does have a history of heavy alcohol use. States that the morning of admission he had a few beers but states that in a couple days he has not had any alcoholic beverages. He claims his typical alcohol use is around a pack of beer per week. He does have a productive cough but no shortness of breath. He has some COPD and it appears to be about baseline. Evaluation in the emergency room found him to be quite hypertensive, initial blood pressure 221/135, mild tachycardia. He denies any known fever, but his O2 saturations were in the high 90s. His lab showed elevated liver enzymes consistent with alcohol abuse. AST 140, ALT 95. Toxicology was positive for alcohol level of 104. PAST MEDICAL HISTORY: 1. Hypertension. 2. Hyperlipidemia. 3. COPD. 4. Osteoarthritis. 5. Seasonal allergic rhinitis. 6. Questionable bipolar disorder. OBJECTIVE: General: Today he is awake and alert. He says he still feels a little queasy in his stomach. He is eating. He says that his shaking is better. Vital signs: Temp 99.3 degrees, pulse 88, respirations 20, blood pressure 157/64. HEENT: Pupils are equal and round. Lungs: Clear in all lung campa. Cardiovascular: Regular rhythm and rate without murmur or S3. Abdomen: Soft. Skin: Warm and dry. Urine output 1100 mL. ASSESSMENT AND PLAN: 1. Alcohol withdrawal. He is on Librium and Ativan. Seems to be improving. 2. Accelerated hypertension, which has improved. Blood pressures have been 137-189 over 64-100. 3. Alcoholic hepatitis. Liver functions seem to be improving. AST is 48. ALT is down to 87. Electrolytes look good. Serum creatinine 0.7, sodium 136, potassium 3.9, chloride 102. 4. Thrombocytopenia, which is suspect. Appears to be improving. Platelet count 103,000. When he came in it was 140,000, so does look stable, but he does have still mild thrombocytopenia. Continue GI prophylaxis. Continue physical therapy. He says he is very weak. His legs give out on him. He is on Norvasc 10 mg a day, aspirin 325 mg a day, Coreg 25 mg twice a day. He is taking his Librium 25 mg q.6 hours. He is on Ativan 1 mg IV q.2 hours p.r.n., Protonix 40 mg daily. Social service is looking as he most likely will need to go to rehab from here if he is eligible. cc: Clive Abad MD
[2018-08-04] MEDS: PROTONIX IV SCH (16:15)
[2018-08-04] MEDS: SODIUM CHLORIDE 0.9% INJ SCH (16:15)
[2018-08-05] MEDS: LIBRIUM PO SCH ×4 (04:54→21:54)
[2018-08-05] MEDS: NORCO-10 PO PRN ×4 (05:05→21:54)
[2018-08-05] MEDS: APRESOLINE PO SCH ×3 (05:05→21:54)
[2018-08-05] MEDS: XOPENEX NEB INH PRN ×4 (06:42→15:50)
[2018-08-05] MEDS: ATIVAN IV PRN ×5 (06:50→23:52)
[2018-08-05] MEDS: ASPIRIN PO SCH (08:54)
[2018-08-05] MEDS: M.V.I.-12 10 ML, FOLIC ACID 1 MG, MAGNESIUM SULFATE 1 GM, THIAMINE 100 MG in NS 1,000 ML IV SCH (08:54)
[2018-08-05] MEDS: COREG PO SCH ×2 (08:54→21:54)
[2018-08-05] MEDS: NORVASC PO SCH (08:54)
--- NOTE | 2018-08-05 10:19 | PROGRESS NOTE ---
DATE: 08/05/2018 SUBJECTIVE: Mr. Joseph states that he is still having diarrhea and loose stools. Still pretty weak. Not been able to walk around much. Still having some nausea. OBJECTIVE: Vital signs: Temp 98.7 degrees, pulse 80, respirations 16, blood pressure 100/76. Pupils: Are equal and round. Lungs: Clear in all lung campa. Cardiovascular: Regular rate without murmur or S3. Urine output: Was 3000 mL. ASSESSMENT AND PLAN: 1. Alcohol withdrawal. Still on Librium and Ativan. I think he is slowly improving. Certainly, the tremor and his delirium has improved. 2. Accelerated hypertension. Blood pressure appears to be well controlled. 3. Alcoholic hepatitis. Liver enzymes are slowly going down. 4. Thrombocytopenia. This is improving. 5. History of chronic obstructive pulmonary disease. 6. Still some loose stools. 7. Very weak, and so continue physical therapy. Continue current medications and discharge planning. Not sure if he is eligible for anything, so we are going to try and get him ready go home. cc: Clive Abad MD
[2018-08-05] MEDS: SODIUM CHLORIDE 0.9% INJ SCH (16:43)
[2018-08-05] MEDS: PROTONIX IV SCH (16:43)
[2018-08-06] MEDS: LIBRIUM PO SCH ×4 (03:36→22:04)
[2018-08-06] MEDS: NORCO-10 PO PRN ×3 (03:36→22:04)
[2018-08-06] MEDS: APRESOLINE PO SCH ×3 (07:57→22:04)
[2018-08-06] MEDS: ATIVAN IV PRN ×3 (07:59→16:52)
[2018-08-06] MEDS: NORVASC PO SCH (08:00)
[2018-08-06] MEDS: COREG PO SCH ×2 (08:00→22:04)
[2018-08-06] MEDS: ASPIRIN PO SCH (08:00)
[2018-08-06] MEDS: M.V.I.-12 10 ML, FOLIC ACID 1 MG, MAGNESIUM SULFATE 1 GM, THIAMINE 100 MG in NS 1,000 ML IV SCH (10:35)
--- NOTE | 2018-08-06 11:00 | PROGRESS NOTE ---
DATE: 08/06/2018 SUBJECTIVE: Mr. Joseph is better. He reports that he is stronger, his bowels are moving, no abdominal pain and no nausea so he wants to go home soon. OBJECTIVE: Vital Signs: Temperature 98.5, pulse 76, respirations 14, and blood pressure 150/67. HEENT: Pupils are equal and round. Lungs: Clear in all lung campa. Cardiovascular: Regular rhythm and rate without murmur or S3. Abdomen: Soft. Skin: Warm and dry. Urine output: 1800 mL. ASSESSMENT AND PLAN: 1. Alcohol withdrawal, which I think he has completed. He is taking Librium and Ativan as needed. 2. Accelerated hypertension. Blood pressure is under good control. 3. Alcoholic hepatitis. Enzymes are coming down. Liver enzymes are correcting. 4. Thrombocytopenia, which is stable. 5. History of chronic obstructive pulmonary disease. 6. Loose stools, which has improved as well so I think we are close to going home. REVIEW OF HIS LABS: From the 15, hematocrit was 39 and hemoglobin 13. Electrolytes look good. AST and ALT are mildly elevated but seem to be heading in the right direction so hopefully he can go home in the morning. REVIEW OF CURRENT ORDERS: He is on Apresoline 100 mg every 8 hours, Norvasc 10 mg a day, aspirin 325 mg a day, Coreg 25 mg every 12 hours, Librium 24 mg every 6 hours, Apresoline 10 mg IV every 6 hours p.r.n., Protonix 40 mg IV every 24 hours, and nicotine patch 14 mg daily. cc: Clive Abad MD
[2018-08-06] MEDS: PROTONIX IV SCH (16:52)
[2018-08-06] MEDS: SODIUM CHLORIDE 0.9% INJ SCH (16:52)
[2018-08-07] MEDS: LIBRIUM PO SCH ×4 (05:38→19:40)
[2018-08-07] MEDS: APRESOLINE PO SCH ×3 (07:03→22:53)
[2018-08-07] MEDS: M.V.I.-12 10 ML, FOLIC ACID 1 MG, MAGNESIUM SULFATE 1 GM, THIAMINE 100 MG in NS 1,000 ML IV SCH (10:40)
[2018-08-07] MEDS: NORCO-10 PO PRN ×2 (10:40→18:26)
[2018-08-07] MEDS: ASPIRIN PO SCH (10:41)
[2018-08-07] MEDS: COREG PO SCH ×2 (10:41→22:53)
[2018-08-07] MEDS: NORVASC PO SCH (10:41)
[2018-08-07] MEDS: XOPENEX NEB INH PRN (11:37)
--- NOTE | 2018-08-07 14:18 | PROGRESS NOTE ---
DATE: 08/07/2018 INCOMPLETE REPORT - DICTATION STARTS HERE. Pupils are equal and round.Lungs: Clear in all lung campa. Cardiovascular: Regular rhythm and rate without murmur or S3. Abdomen: Soft. Skin: Warm and dry. He apparently slid out of bed and crawled around a little bit last night. He was sleeping most of the morning, awake later on in the afternoon, said that he feels good. Bowels are moving okay. He is eating. He would like to go home tomorrow, said his sister can come and pick him up. ASSESSMENT AND PLAN: 1. Alcohol withdrawal, appears to have completed. 2. Accelerated hypertension. Blood pressures appear to be under good control. 3. Alcoholic hepatitis. Liver enzymes are going down pretty well. 4. Thrombocytopenia, stable. 5. Chronic obstructive pulmonary disease. 6. Loose stools, which have resolved, so hoping to let him go home in the morning. cc: Clive Abad MD
[2018-08-07] MEDS: PROTONIX IV SCH (16:23)
[2018-08-07] MEDS: SODIUM CHLORIDE 0.9% INJ SCH (16:24)
[2018-08-07] MEDS: ATIVAN IV PRN (19:40)
[2018-08-07] MEDS: NICODERM PATCH TD PRN (19:44)
[2018-08-08] MEDS: NORCO-10 PO PRN ×3 (00:07→12:28)
[2018-08-08] MEDS: ATIVAN IV PRN (00:08)
[2018-08-08] MEDS: LIBRIUM PO SCH ×2 (02:18→08:01)
[2018-08-08] MEDS: APRESOLINE PO SCH ×2 (05:57→12:28)
[2018-08-08] MEDS: ASPIRIN PO SCH (08:01)
[2018-08-08] MEDS: NORVASC PO SCH (08:01)
[2018-08-08] MEDS: COREG PO SCH (08:02)
[2018-08-08] MEDS: M.V.I.-12 10 ML, FOLIC ACID 1 MG, MAGNESIUM SULFATE 1 GM, THIAMINE 100 MG in NS 1,000 ML IV SCH (08:02)
--- NOTE | 2018-08-08 11:18 | DISCHARGE SUMMARY ---
ADMISSION DATE: 07/31/2018 DISCHARGE DATE: 08/08/2018 HISTORY: A 63-year-old followed by TAMARA Santos. He came in with nausea, vomiting, and tremors. PAST MEDICAL HISTORY: Hypertension, COPD, osteoarthritis, bipolar disorder, heavy alcohol use. He presented to the emergency department with complaints of nausea and vomiting along with some associated diarrhea lasting about 3 days. He denies any abdominal pain. He denies hematemesis, hematochezia, or melena. He states he is vomiting yellowish-green sputum. He has been unable to eat or drink for the past day or so. History of heavy alcohol use. He states that he had a few beers a couple of days ago but the past couple of days has not had any. He claims typical alcohol use is around a 6 pack of beer a day. He reports that he had a nonproductive cough but no shortness of breath. He does have COPD and appears to be at baseline. In the emergency room, he was found to be quite hypertensive. Initial blood pressure 221/135, mild tachycardia. He denies any known fever and O2 sats were in the high 90s. So, he was admitted to the hospital with an admission diagnoses of nausea and vomiting likely secondary to alcohol withdrawal, and he had some transaminitis consistent with alcoholic hepatitis. They put him on a Librium taper and Ativan and managed his blood pressure. He seemed to have accelerated hypertension and blood pressures came down nicely. Liver enzymes slowly improved. He did go through alcohol withdrawal with delirium and with agitation and showed slow steady improvement and was able to start eating again. Physical Therapy - he was able to walk around the halls and felt he could go home on 08/08/2018 and will follow up with His TAMARA and follow up with his liver function tests. ProTime looked good. ASSESSMENT AND PLAN: 1. Alcohol withdrawal appears to have completed. 2. Accelerated hypertension. Blood pressure under good control. 3. Alcoholic hepatitis. Liver enzymes better. 4. Thrombocytopenia. 5. Chronic obstructive pulmonary disease. 6. Loose stools which have improved. DISCHARGE MEDICATIONS: 1. Norvasc 10 mg a day. 2. Aspirin 325 mg a day. 3. Coreg 25 mg q. 12. 4. Apresoline 100 mg 3 times a day. 5. Labetalol, will stop. 6. Multivitamin, 1 a day. 7. NicoDerm patch 14 mg a day. 8. I will give him Protonix 40 mg a day for 4 weeks and then stop that. cc: Clive Abad MD
[2018-08-08 12:31] VITALS: BP 124/68
== END 2018-08-08 13:54 | disposition home or self-care (01) | DRG 897 ==
LOC: SUPCPDRO → ED 11:03 → SUATTDRO 16:38 → 4N 16:38
PROVIDERS: ATTEND Emergency Medicine
CPT/HCPCS: 36415; 71020; 71046; 76700; 80053; 80074; 80101; 80301; 80307; 80320; 80324; 80345; 80346; 80353; 80358; 80361; 80365; 81001; 82055; 82150; 83690; 83735; 83992; 84100; 84439; 84443; 85025; 85027; 85610; 86022; 93005; 93010; 94640; 94761; 94762; 94799; 96374; 96375; 96376; 97110; 97162; 97530; 99285; A9270; C9113; G0431; G0434; G0479; G0480; G6040; J0360; J0780; J1650; J2060; J2405; J3411; J3475; J7030; S0164

== ENCOUNTER 2018-09-09 10:19 | Inpatient (IN) ==
[2018-09-09] MEDS ORDERED: LABETALOL IV ONE (13:21)
[2018-09-09] MEDS ORDERED: APRESOLINE IV ONE ×2 (13:31→16:20)
--- NOTE | 2018-09-09 13:33 | EKG Report ---
Test Performed on : 09/09/2018 1:27:53 PM Test Reason : htn urgency Blood Pressure : / mmHG Vent. Rate : 061 BPM Atrial Rate : 061 BPM P-R Int : 098 ms QRS Dur : 090 ms QT Int : 462 ms P-R-T Axes : -13 056 088 degrees QTc Int : 465 ms Sinus rhythm. with short MT Voltage criteria for left ventricular hypertrophy Abnormal ECG When compared with ECG of 31-JUL-2018 18:25, Vent. rate has decreased BY 44 BPM Confirmed by Nova DALAL, Hernandez Schumacher ([id number]) on 09/10/2018 7:02:08 AM
[2018-09-09 13:55] LABS: BASO# 0.02 X1000 (0.0-0.2); BASO% 0.3 % (0.0-0.8); EOS# 0.05 X1000 (0.0-0.7); EOS% 0.8 % (0.0-10.0); HEMATOCRIT 39.8 % (42.0-52.0); HEMOGLOBIN 13.2 g/dL (14.0-18.0); LYMPH# 1.89 X1000 (1.2-3.4); LYMPH% 30.8 % (20.5-51.1); MCH 30.8 PG (27-31); MCHC 33.2 g/dL (33-37); MONO# 0.47 X1000 (0.11-0.59); MONO% 7.7 % (1.7-9.3); MPV 10.3 FL (7.4-10.4); NEUT% 60.4 % (42.2-75.2); PLT 203 X1000 (130-400); RBC 4.28 XMIL (4.7-6.1); RDW 14.8 % (11.5-14.5); WBC 6.13 X1000 (4.8-10.8)
--- NOTE | 2018-09-09 14:01 | Diag Imaging Result Doc PS360 ---
CHEST-PORTABLE - 09/09/2018 INDICATION: htn urgency COMPARISON: 07/31/2018 FINDINGS: The lungs are clear. Heart size is normal. No pneumothorax or pleural effusion. IMPRESSION: Negative exam. Electronically signed by Rai Garza 09/09/2018 1:59 PM
[2018-09-09 14:12] LABS: INR 0.89; PROTIME 12.8 Seconds (11.0-16.0)
[2018-09-09 14:15] LABS: AGAP 11; ALB/GLOB RATIO 1.6; ALBUMIN 3.9 g/dL (3.5-5.0); ALKALINE PHOSPHATASE 43 U/L (32-122); BUN 12 mg/dL (8-22); CALCIUM 8.9 mg/dL (8.8-10.2); CHLORIDE 103 mmol/L (98-107); CK PROFILE 163 U/L (24-204); COSMO 287; CREATININE 0.9 mg/dL (0.7-1.2); ESTIMATED GFR > 60; GLUCOSE 76 mg/dL (70-104); GOT 17 U/L (10-34); GPT 9 U/L (10-44); MAGNESIUM 1.9 mg/dL (1.5-2.7); PHOSPHORUS 3.4 mg/dL (2.7-4.5); POTASSIUM 3.5 mmol/L (3.5-5.1); SODIUM 145 mmol/L (136-145); TCO2 31 mmol/L (25-35); TOTAL BILIRUBIN 0.24 mg/dL (0.20-1.00); TOTAL PROTEIN 6.3 g/dL (6.3-8.3)
[2018-09-09] MEDS ORDERED: ROBAXIN PO PRN (14:27)
[2018-09-09 15:03] LABS: URINE SOURCE CLEAN CATCH
[2018-09-09 15:08] LABS: BILIRUBIN URINE NEGATIVE (NEGATIVE); BLOOD URINE NEGATIVE (NEGATIVE); COLOR STRAW; GLUCOSE URINE NEGATIVE (NEGATIVE); KETONE URINE NEGATIVE (NEGATIVE); LEUKOCYTES URINE NEGATIVE (NEGATIVE); NITRITE URINE NEGATIVE (NEGATIVE); PROTEIN URINE NEGATIVE (NEGATIVE); TURBIDITY URINE CLEAR (CLEAR); UROBILINOGEN URINE NORMAL (NORMAL)
[2018-09-09 15:09] LABS: UR EPITHELIAL CELLS <10 /HPF (<10); URINE BACTERIA NEGATIVE /HPF; URINE RBC <10 /HPF (<10); URINE WBC <10 /HPF (<10)
[2018-09-09 15:29] LABS: UR AMPHETAMINES QUAL NONE DETECTED (NONE DETECT); UR BARBITUATES QUAL NONE DETECTED (NONE DETECT); UR BENZODIAZEPIN QUAL NONE DETECTED (NONE DETECT); UR CANNABINOIDS QUAL NONE DETECTED (NONE DETECT); UR COCAINE QUAL NONE DETECTED (NONE DETECT); UR METHADONE QUAL NONE DETECTED (NONE DETECT); UR OPIATES QUAL NONE DETECTED (NONE DETECT); UR OXYCODONE QUAL NONE DETECTED (NONE DETECT); UR PCP QUAL NONE DETECTED (NONE DETECT)
[2018-09-09] MEDS ORDERED: CATAPRES PO ONE (16:20)
--- NOTE | 2018-09-09 16:33 | HISTORY AND PHYSICAL ---
PRIMARY CARE PROVIDER: TAMARA Santos. CHIEF COMPLAINT: Abdominal pain, nausea, vomiting, difficulty swallowing, and hypertension. HISTORY OF PRESENT ILLNESS: Mr. Joseph is a 63-year-old male well known to our service. He has a history of alcohol dependence, nicotine dependence, COPD, and hypertension. He presents with abdominal pain, nausea, vomiting, and difficulty swallowing food. He comes to our facility often for blood pressure elevation and alcohol withdrawal, however he has not had a drink, per his report, since the last time he was here. He went to his PCP at the beginning of the week for abdominal pain, difficulty swallowing, nausea, and some vomiting. He called back today saying his symptoms had not improved and was instructed to come to the hospital for further treatment and evaluation. When he arrived to the floor, his blood pressure initially was noted to be 222/ 98. His heart rate was in the 70s. He denies any chest pain and no shortness of breath, but he does report that his knees give out sometimes because they hurt so bad when he walks. He denies any syncope, presyncope, or vision changes. He will be admitted for further evaluation and treatment. PAST MEDICAL HISTORY: 1. Hypertension. 2. 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 3. History of alcohol dependence, in partial remission. 4. COPD. 5. Hyperlipidemia. 6. Nicotine dependence. SURGICAL HISTORY: Left hip and left ulnar nerve repairs. SOCIAL HISTORY: He smokes half pack a day. He has not had any alcohol since his last admission, per his report. Denies any drug use. REVIEW OF SYSTEMS: A 14 point review of systems was obtained and found to be negative with the exception of the HPI. ALLERGIES: No known drug allergies. HOME MEDICATIONS: Albuterol nebulizer every four hours as needed, aspirin 325 mg daily, Zyrtec 10 mg daily, chlorthalidone 25 mg daily, Cymbalta 60 mg daily, vitamin D 50,000 units p.o. daily, Mobic 15 mg daily, metoprolol succinate 100 mg p.o. daily, mometasone formoterol inhaler two puffs daily, montelukast 10 mg daily, Benicar 40 mg daily, omeprazole 40 mg daily, pravastatin 20 mg at bedtime, quetiapine ER 50 mg at bedtime, Spiriva 2.5 mcg inhaled daily, Norvasc 10 mg daily, Catapres 0.1 mg p.o. b.i.d., hydralazine 100 mg p.o. t.i.d., hydrocodone 10 mg every six hours as needed, Robaxin 500 to 1000 mg p.o. b.i.d. as needed. PHYSICAL EXAMINATION: VITAL SIGNS: Blood pressure is 222/98, heart rate 70, respiratory rate 18, O2 saturation 99% on room air, and temperature 98.2. GENERAL: This is an underweight, bordering on cachectic appearing 63-year-old male lying in a hospital bed in no acute distress. NEUROLOGIC: He is awake, alert, and oriented. He follows commands without focal deficits. HEENT: The head is atraumatic and normocephalic. His pupils are equal, round, and reactive to light. Oral mucosa is moist. His posterior oropharynx is mildly erythematous but without exudate. NECK: Supple. Trachea is midline. CHEST: Diminished at the bases but clear to auscultation. CARDIOVASCULAR: Regular rate and rhythm. S1, S2 is noted. GASTROINTESTINAL: Soft. Nondistended and nontender. Bowel sounds are active. EXTREMITIES: Without edema. Pulses 1+ bilaterally. DIAGNOSTIC DATA: Chest x-ray is negative. ASSESSMENT AND PLAN: 1. Hypertensive urgency: Will continue with intravenously pushed medications. Continue all of his home medications, increasing as necessary. No end organ damage at this time. The patient states that he takes his medication on a daily basis. Will continue with all of his home medications because he is on quite a bit and go from there. He denies any chest pain or neurologic changes. 2. Odynophagia: Will check upper GI series and continue his proton pump inhibitor. If any abnormalities on the upper GI series, will consult Gastroenterology for a possible upper endoscopy or refer him outpatient. 3. Chronic obstructive pulmonary disease: No evidence of exacerbation at this time. Will continue his home medications and monitor telemetry and his oxygen saturations. 4. Deep venous thrombosis prophylaxis with Lovenox. Further recommendations to follow. Dictated by TAMARA Hardy for Dangelo Rodriguez MD cc: TAMARA Hardy MD Anna M. Dumas, CRNP MTDD
[2018-09-09] MEDS: NITROGLYCERIN TOP SCH ×2 (18:07→22:56)
--- NOTE | 2018-09-09 19:11 | Diag Imaging Result Doc PS360 ---
EXAM: ABDOMEN FLAT/UPRIGHT - 09/09/2018 HISTORY: pain TECHNIQUE: Supine and upright abdomen COMPARISON: 08/25/2018 supine abdomen FINDINGS: There is mild gaseous distention of the stomach. The bowel gas pattern otherwise appears nonspecific and nonobstructive. There is small bowel gas visible but there is no substantial gaseous small bowel distention identified. There is a moderate amount retained fecal debris in the colon. There is no free air identified. IMPRESSION: Mild gaseous distention of stomach. Nonspecific bowel gas pattern otherwise. Apparent constipation. Electronically signed by Pb Gutierrez 09/09/2018 7:09 PM
[2018-09-09] MEDS: ALBUTEROL NEB INH PRN ×2 (19:32→23:17)
--- NOTE | 2018-09-09 19:38 | HISTORY AND PHYSICAL ---
HISTORY AND PHYSICAL - ADDENDUM: This is an H P addendum with Mono Thomas. The patient came in with significant nausea and vomiting. Also, very elevated blood pressures. He seems to be doing a bit better, but his blood pressure is still very high. He has a longstanding history of hypertension. He is already on 5 different medications, completely clear how much of a workup he has had for that, but he has been here numerous times. He has a history of alcohol abuse, but he says he has not had anything to drink in several months. When he was here in July, though, I think he did, there was concern over alcohol. He has bipolar disorder, too. He reports some abdominal pain. His alcohol consumption he says is about a six-pack a week, which is really not excessive, but, again, we are not entirely sure if this is true. He presented with intractable nausea, vomiting, hypertension as an outpatient and then he was sent over here for treatment. He is usually on Norvasc at 10, Coreg, labetalol was stopped, hydralazine and reportedly I think he was discharged on clonidine, but he is on clonidine now. In any case, physical exam is really unremarkable. PROBLEM LIST: 1. Malignant hypertension, nausea, vomiting. We will continue regular medications and follow. He reports some dysphagia, but it is not really clear that it is true dysphagia. He almost reports issues with dryness of his mouth, which he is on a diuretic. I am hesitant to stop the diuretic. His blood pressure is not under control, but I think we could consider doing it, too. I am not sure if Cymbalta, duloxetine may have that side effect, as well. I cannot see if there is any other issues. Of course, Sjogren's is always a concern, but probably unlikely. But we will continue to follow. He is not had a secondary hypertension workup that I can tell. He is 63, so it would be unlikely, but I am not sure. We just need to evaluate his renal arteries, check him for hormonal imbalance and we will continue to follow. There certainly could be direct, there could be surreptitious alcohol use that he is not admitting to. 2. COPD, appears stable. Advised on smoking cessation. cc: Dangelo Rodriguez MD
[2018-09-09 21:00] LABS: AGAP 7; ALB/GLOB RATIO 1.8; ALBUMIN 3.5 g/dL (3.5-5.0); ALKALINE PHOSPHATASE 33 U/L (32-122); BUN 9 mg/dL (8-22); CALCIUM 8.2 mg/dL (8.8-10.2); CHLORIDE 107 mmol/L (98-107); COSMO 279; CREATININE 0.8 mg/dL (0.7-1.2); ESTIMATED GFR > 60; GLUCOSE 118 mg/dL (70-104); GOT 13 U/L (10-34); GPT 9 U/L (10-44); POTASSIUM 2.9 mmol/L (3.5-5.1); SODIUM 140 mmol/L (136-145); TCO2 26 mmol/L (25-35); TOTAL PROTEIN 5.4 g/dL (6.3-8.3)
[2018-09-09] MEDS ORDERED: CATAPRES PO SCH (21:00)
[2018-09-09] MEDS: SEROQUEL XR PO SCH (22:37)
[2018-09-09] MEDS: PRAVACHOL PO SCH (22:37)
[2018-09-09] MEDS: NORCO-10 PO PRN (22:55)
[2018-09-09] MEDS: APRESOLINE PO SCH (22:56)
[2018-09-10] MEDS: NORCO-10 PO PRN ×3 (05:21→22:09)
[2018-09-10] MEDS: LOVENOX SUBQ SCH (05:22)
[2018-09-10] MEDS: NITROGLYCERIN TOP SCH ×3 (05:23→18:37)
[2018-09-10 06:51] LABS: BASO# 0.04 X1000 (0.0-0.2); BASO% 0.9 % (0.0-0.8); EOS# 0.08 X1000 (0.0-0.7); EOS% 1.7 % (0.0-10.0); HEMATOCRIT 36.8 % (42.0-52.0); LYMPH# 1.85 X1000 (1.2-3.4); LYMPH% 40.3 % (20.5-51.1); MCH 30.5 PG (27-31); MCHC 32.6 g/dL (33-37); MCV 93.6 FL (81-99); MONO# 0.45 X1000 (0.11-0.59); MONO% 9.8 % (1.7-9.3); MPV 10.5 FL (7.4-10.4); NEUT# 2.17 X1000 (1.4-6.5); NEUT% 47.3 % (42.2-75.2); PLT 188 X1000 (130-400); RBC 3.93 XMIL (4.7-6.1); RDW 14.9 % (11.5-14.5); WBC 4.59 X1000 (4.8-10.8)
[2018-09-10 07:22] LABS: AGAP 4; BUN 8 mg/dL (8-22); CHLORIDE 108 mmol/L (98-107); COSMO 288; CREATININE 0.9 mg/dL (0.7-1.2); ESTIMATED GFR > 60; GLUCOSE 87 mg/dL (70-104); MAGNESIUM 1.9 mg/dL (1.5-2.7); POTASSIUM 3.4 mmol/L (3.5-5.1); SODIUM 146 mmol/L (136-145); TCO2 34 mmol/L (25-35)
[2018-09-10] MEDS: ALBUTEROL NEB INH PRN ×5 (07:25→23:05)
[2018-09-10] MEDS: SPIRIVA INH SCH (07:25)
[2018-09-10] MEDS: VENTOLIN HFA INH SCH (07:26)
[2018-09-10] MEDS: DULERA 200 MCG/5 MCG INHALER INH SCH ×2 (07:27→10:43)
--- NOTE | 2018-09-10 08:49 | Diag Imaging Result Doc PS360 ---
EXAM: CT ANGIOGRAM RENAL ARTERIES 09/10/2018 HISTORY: malignant hypertension TECHNIQUE: This exam was performed using automated exposure control, adjustment of mA or kV according to patient size, and/or use of iterative reconstruction technique. COMMENT: 3-D MIPS were performed. The current study is compared with the previous examination of 09/12/2017. There is atelectasis in the right posterior costophrenic sulcus which was not present at the time the previous examination. There is extensive calcific and noncalcific atherosclerotic plaque formation in the aorta. There is no evidence of aneurysm. The mesenteric arteries are patent. There is some atherosclerotic plaque in the proximal left renal artery. There is calcific plaque present at the ostium of the right renal artery. There is somewhat irregular stenosis of the first 9 mm of the main right renal artery. This is somewhat more apparent than on the previous examination and is more obvious on the MIPS images than on the cross-sectional images. This is particularly true of the irregularity of the lumen. There is bilateral accessory lower pole renal arteries. Some cortical scarring is present in the left kidney in the mid portion posteriorly. Formerly there was a cyst in this location which appears to have largely disappeared. IMPRESSION: Atherosclerotic changes with likely significant stenosis of the proximal main right renal artery. Electronically signed by Anthony Xavier 09/10/2018 8:46 AM
[2018-09-10] MEDS ORDERED: HYGROTON PO SCH (09:00)
[2018-09-10] MEDS ORDERED: ASPIRIN EC PO SCH (09:00)
[2018-09-10] MEDS ORDERED: VITAMIN D PO SCH (09:00)
--- NOTE | 2018-09-10 09:17 | Diag Imaging Result Doc PS360 ---
EXAM: GI SERIES WITH BA SWALLOW 09/10/2018 HISTORY: wheel TECHNIQUE: Air contrast upper GI series, 22 images, 33 minutes 31 seconds fluoroscopy time, 3338.3 centigrays. COMMENT: The patient is able to swallow barium without difficulty. There is tertiary contractions throughout the distal half of the esophagus. No reflux was demonstrated during the procedure and there is no evidence of hiatal hernia. The stomach is normal in appearance. There is some mucosal fold thickening and distortion of the duodenal bulb which may be due to previous peptic ulcer disease. No definite ulcer crater isn't identifiable on today's study however. There is also some mucosal fold thickening in the post bulbar duodenum which may be indicative of duodenitis. IMPRESSION: Presbyesophagus. No evidence of reflux. Mild scarring of the duodenal bulb and questionable duodenitis. Electronically signed by Anthony Xavier 09/10/2018 9:15 AM
[2018-09-10] MEDS: APRESOLINE PO SCH ×3 (09:18→21:02)
[2018-09-10] MEDS: ZYRTEC PO SCH (09:18)
[2018-09-10] MEDS: CATAPRES PO SCH ×2 (09:18→13:55)
[2018-09-10] MEDS: BENICAR PO SCH (09:18)
[2018-09-10] MEDS: TOPROL XL PO SCH (09:18)
[2018-09-10] MEDS: SINGULAIR PO SCH (09:20)
[2018-09-10] MEDS: PRILOSEC PO SCH (09:20)
[2018-09-10] MEDS: NORVASC PO SCH (09:20)
[2018-09-10] MEDS: CYMBALTA PO SCH (09:21)
[2018-09-10] MEDS: ASPIRIN EC PO SCH (12:06)
--- NOTE | 2018-09-10 17:47 | PROGRESS NOTE ---
DATE: 09/10/2018 INTERVAL HISTORY: Mr. Joseph was admitted for hypertensive emergency, nausea/ vomiting, abdominal pain. CT scan, renal artery angiogram has detected right-sided renal artery stenosis at the origin. However, he has normal kidney function. SUBJECTIVE: The patient states that his nausea and vomiting are better. We discussed about a upper GI series result. We also discussed about renal artery stenosis. I answered all of his questions. He is denying chest pain or shortness of breath. His abdominal pain is getting better. He continues to smoke and denies any alcohol use. OBJECTIVE: Vitals: Temperature 97.9 degrees, pulse 57, respiratory rate 16, blood pressure 105/53, saturating 99% on room air. His orthostatic readings are also positive for orthostatic hypotension. General: Appears cachectic with protein calorie malnutrition, not in any acute distress. HEENT: Oral cavity is moist. Lungs: Air entry bilaterally equal. No wheeze, rhonchi, or crackles. He had left nasal cavity turbinate hypertrophy leading to almost blocking of his left nose cavity. Heart: S1, S2 normal. No murmur, rub, or gallop. Abdomen: Soft, nontender. No abdominal bruit. Extremities: No lower extremity edema. LABORATORY DATA: Suggestive of normocytic anemia, normal platelet, and acceptable range of WBC count. Hypernatremia, hypokalemia, hyperchloremia. ASSESSMENT AND PLAN: 1. Hypertensive emergency contributing to his nausea/vomiting and abdominal pain with suspicion of renovascular hypertension considering unilateral right-sided renal artery stenosis. However, he does have normal kidney function. Currently, orthostatic vital signs suggest orthostatic hypotension, and his blood pressure has actually become normal. Considering episodic hypertension, metanephrines and aldosterone with renin where ordered. I will await final results. Meanwhile, continue his home medications of clonidine, hydralazine, metoprolol, amlodipine, and decreasing clonidine and hydralazine doses, considering his near- normal blood pressure. 2. Unilateral renal artery stenosis. I will follow up with metanephrine, aldosterone, and renin results. He currently does not have kidney dysfunction. Depending on his course in future, I might consider Vascular Surgery consult. 3. Tobacco abuse. I extensively counseled him about quitting tobacco. Alcohol abuse. Not withdrawing currently. 4. Hyperlipidemia. Continue pravastatin. Continue home aspirin. 5. Chronic obstructive pulmonary disease (COPD). Continue albuterol nebulization. 6. Continue enoxaparin for DVT prophylaxis. DISPOSITION: Patient remains inside the hospital. I am awaiting some of the blood test results, as well as stable control of blood pressure at which point I will consider discharging him, which I anticipate in the next 24 to 48 hours. cc: Nicholas Darden MD MTDD
[2018-09-10] MEDS ORDERED: NS 500 ML IV ONE (19:24)
[2018-09-10] MEDS: POTASSIUM CHLORIDE 20 MEQ/SWI 20 MEQ/100 ML IVPB IV SCH (20:30)
[2018-09-10] MEDS: PRAVACHOL PO SCH (21:01)
[2018-09-10] MEDS: SEROQUEL XR PO SCH (21:01)
[2018-09-11] MEDS: NITROGLYCERIN TOP SCH ×5 (00:02→23:47)
[2018-09-11] MEDS: POTASSIUM CHLORIDE 20 MEQ/SWI 20 MEQ/100 ML IVPB IV SCH (02:12)
[2018-09-11] MEDS: APRESOLINE PO SCH ×4 (02:31→20:08)
[2018-09-11] MEDS: NORCO-10 PO PRN ×4 (05:15→23:46)
[2018-09-11] MEDS: LOVENOX SUBQ SCH (06:03)
[2018-09-11 06:11] LABS: BASO# 0.03 X1000 (0.0-0.2); BASO% 0.5 % (0.0-0.8); EOS# 0.15 X1000 (0.0-0.7); EOS% 2.6 % (0.0-10.0); HEMATOCRIT 34.4 % (42.0-52.0); HEMOGLOBIN 11.1 g/dL (14.0-18.0); LYMPH% 32.8 % (20.5-51.1); MCH 30.5 PG (27-31); MCHC 32.3 g/dL (33-37); MCV 94.5 FL (81-99); MONO# 0.45 X1000 (0.11-0.59); MONO% 7.8 % (1.7-9.3); MPV 10.8 FL (7.4-10.4); NEUT# 3.26 X1000 (1.4-6.5); NEUT% 56.3 % (42.2-75.2); PLT 182 X1000 (130-400); RBC 3.64 XMIL (4.7-6.1); RDW 14.8 % (11.5-14.5); WBC 5.79 X1000 (4.8-10.8)
[2018-09-11 06:32] LABS: AGAP 7; BUN 16 mg/dL (8-22); CALCIUM 8.4 mg/dL (8.8-10.2); CHLORIDE 104 mmol/L (98-107); COSMO 278; CREATININE 1.2 mg/dL (0.7-1.2); ESTIMATED GFR > 60; GLUCOSE 88 mg/dL (70-104); MAGNESIUM 1.8 mg/dL (1.5-2.7); POTASSIUM 3.8 mmol/L (3.5-5.1); SODIUM 139 mmol/L (136-145); TCO2 28 mmol/L (25-35)
[2018-09-11] MEDS: DULERA 200 MCG/5 MCG INHALER INH SCH ×2 (07:39→09:05)
[2018-09-11] MEDS: ALBUTEROL NEB INH PRN ×3 (07:39→15:41)
[2018-09-11] MEDS: SPIRIVA INH SCH (07:40)
[2018-09-11] MEDS: VENTOLIN HFA INH SCH (07:41)
[2018-09-11] MEDS: PRILOSEC PO SCH (08:49)
[2018-09-11] MEDS: NORVASC PO SCH (08:49)
[2018-09-11] MEDS: CYMBALTA PO SCH (08:49)
[2018-09-11] MEDS: TOPROL XL PO SCH (08:49)
[2018-09-11] MEDS: SINGULAIR PO SCH (08:49)
[2018-09-11] MEDS: ZYRTEC PO SCH (08:49)
[2018-09-11] MEDS: CATAPRES PO SCH ×2 (08:50→20:08)
[2018-09-11] MEDS: BENICAR PO SCH (08:50)
[2018-09-11] MEDS: ASPIRIN EC PO SCH (08:57)
--- NOTE | 2018-09-11 18:34 | PROGRESS NOTE ---
DATE: 09/11/2018 Interval history. No overnight events. His pulse was in 50s. His blood pressure was 130s. SUBJECTIVE: He is not feeling so good today. He has had nausea and 1 episode of vomiting which did not contain any blood. He says that he has been having a dysphagia since last 3 weeks which was prominent for liquids rather than solids. I discussed with him about his barium swallow results that they when negative. However considering his persistent dysphagia I will call gastroenterology. VITALS: Temperature 98.2 degrees, pulse 61, blood pressure 130/62, respiratory rate 16, saturating 98% on room air. PHYSICAL EXAMINATION: General: Does not appear in any acute distress. He appears cachectic with protein calorie malnutrition. Oral cavity is moist. Air entry bilaterally equal. No wheeze, rhonchi or crackles. He has left nasal cavity turbinate hypertrophy almost blocking his entire left nasal cavity. S1, S2 normal. No murmur, rub, or gallop. Abdomen: Soft, nontender. No abdominal bruit. Extremities: No lower extremity edema. LABS: Suggestive of no leukocytosis, stable hemoglobin, hematocrit and platelet count. ASSESSMENT AND PLAN: 1. Hypertensive emergency contributing to his nausea, vomiting, abdominal pain with renovascular hypertension considering unilateral right-sided renal artery stenosis. Continue patient's hypertension management with home medications of amlodipine, clonidine, hydralazine, metoprolol and olmesartan and modify dose according to his response. EKG had sinus rhythm and voltage criteria for left ventricular hypertrophy. 2. Right-sided unilateral renal artery stenosis. He does not have any kidney dysfunction. Follow up with metanephrines, aldosterone, renin activity results to diagnose renovascular hypertension . 3. Tobacco abuse and alcohol abuse. I extensively counseled him about quitting tobacco and alcohol. No signs of acute withdrawal. 4. Dysphagia to liquids since last 3 weeks. Barium followthrough study did not detect any esophageal obstruction though there were some evidence of duodenitis. Considering his persistent dysphagia, current episode of nausea, vomiting and extensive tobacco and alcohol history I will consult Gastroenterology to evaluate him with EGD possibly inpatient. 5. Others. Continue pravastatin for hyperlipidemia, home aspirin, albuterol ipratropium nebulization for COPD and enoxaparin for DVT prophylaxis. 6. Disposition. Patient remains inside the hospital for need for better control of hypertension as well as persistent nausea and vomiting. Plan of care was discussed with him. All of his questions have been answered. cc: Nicholas Darden MD
[2018-09-11] MEDS: SEROQUEL XR PO SCH (20:05)
[2018-09-11] MEDS: PRAVACHOL PO SCH (20:09)
[2018-09-12] MEDS: NORCO-10 PO PRN ×2 (06:08→17:57)
[2018-09-12] MEDS: NITROGLYCERIN TOP SCH ×2 (06:09→13:34)
[2018-09-12] MEDS: LOVENOX SUBQ SCH (06:09)
[2018-09-12] MEDS: DULERA 200 MCG/5 MCG INHALER INH SCH (08:21)
[2018-09-12] MEDS: SPIRIVA INH SCH (08:22)
[2018-09-12] MEDS: BENICAR PO SCH (10:05)
[2018-09-12] MEDS: CYMBALTA PO SCH (10:06)
[2018-09-12] MEDS: PRILOSEC PO SCH (10:06)
[2018-09-12] MEDS: ZYRTEC PO SCH (10:06)
[2018-09-12] MEDS: NORVASC PO SCH (10:06)
[2018-09-12] MEDS: TOPROL XL PO SCH (10:06)
[2018-09-12] MEDS: SINGULAIR PO SCH (10:06)
[2018-09-12] MEDS: APRESOLINE PO SCH ×3 (10:06→22:28)
[2018-09-12] MEDS: CATAPRES PO SCH ×2 (10:07→22:28)
[2018-09-12] MEDS: ASPIRIN EC PO SCH (10:07)
--- NOTE | 2018-09-12 12:29 | GASTROENTEROLOGY CONSULTATION ---
DATE: 09/12/2018 REASON FOR CONSULTATION: Dysphagia. HISTORY OF PRESENT ILLNESS: Mr. Michael Joseph is a 63-year-old gentleman with a past medical history of hypertension, hyperlipidemia, COPD not on oxygen, tobacco abuse, GERD, and depression who presents with 3 weeks of intermittent dysphagia to solids, primarily breads, with associated regurgitation of phlegm, odynophagia, and epigastric pain. He reports losing about 25 pounds unintentionally over the last 2 months. Two nights ago he developed some nausea and vomiting with nonbloody, nonbilious, emesis. Occasionally he notes some red blood in his stool when he wipes. He denies any melena or hematemesis. He takes a full dose aspirin as well as omeprazole 40 mg daily. He is prescribed meloxicam for joint pain. PAST MEDICAL HISTORY: Hypertension, COPD, hyperlipidemia, tobacco abuse, GERD, and depression. PAST SURGICAL HISTORY: Left hip and left ulnar nerve repairs. SOCIAL HISTORY: He smokes one-half pack per day. Apparently he has a history of alcoholism although the patient denies this. He denies any drug use. REVIEW OF SYSTEMS: As per the HPI, a 12 point review of systems is otherwise negative. ALLERGIES: No known drug allergies. HOME MEDICATIONS: Albuterol nebulizer, aspirin, Zyrtec, chlorthalidone, Cymbalta, vitamin D, Mobic, metoprolol, montelukast, Benicar, omeprazole, Pravastatin, quetiapine, Spiriva, Norvasc, Catapres, hydralazine, hydrocodone, Robaxin, and mometasone-formoterol inhaler. PHYSICAL EXAMINATION: Vital Signs: Blood pressure on admission was 222/98, heart rate 70, respiratory rate 18, O2 saturation 99% on room air, and temperature 98.2. General: The patient is thin and malnourished appearing, awake, alert, oriented, and in no acute distress. Neck: Supple. No JVD. No lymphadenopathy. HEENT: Sclerae are anicteric. Moist mucous membranes. Cardiac: Regular rate and rhythm. No murmurs. Lungs: Diffuse inspiratory and expiratory wheezing. No crackles. Abdomen: Soft, nontender, and nondistended. Normoactive bowel sounds. No rebound or guarding. Extremities: No clubbing, cyanosis, or edema. Neuro: Nonfocal. Cranial nerves 2 through 12 are grossly intact. LABORATORY DATA: White count of 5.7, hemoglobin 11.1 from 13.2 on admission, and platelets of 182,000. Sodium of 139, potassium 3.8, chloride of 104, bicarb 28, BUN of 16, creatinine of 1.2, and glucose of 88. LFTs are unremarkable. UA is normal. U-Tox is negative. IMAGING: Chest x-ray was normal on 09/09/2018. KUB showed mild distention of the stomach and constipation on 09/09/2018. Upper GI series with esophagram shows presbyesophagus. No evidence of reflux. Mild scarring in the duodenal bulb and questionable duodenitis. ASSESSMENT AND PLAN: Mr. Michael Joseph is a 63-year-old gentleman who presented with acute nausea, vomiting, dysphagia, and malignant hypertension. Over the last several weeks he reports solid food dysphagia concerning for esophageal pathology. Esophagram was unrevealing for luminal obstruction. The differential includes esophagitis, motility disorder, gastroesophageal reflux disease, and less likely malignancy. The patient has had a notable weight loss over the last several weeks. He reports having an esophagogastroduodenoscopy done several years ago for rectal bleeding. However, we have no records of this. He says that he has never had a colonoscopy in the past. The patient's blood pressure is currently improving. Today it is 161/77. He is currently on omeprazole 40 mg once daily. The patient likely will need a diagnostic esophagogastroduodenoscopy as well as a colonoscopy given his mild anemia and weight loss and rectal bleeding. 1. Dysphagia. Continue proton pump inhibitor. Continue a cardiac diet as tolerated with dysphagia precautions. We will plan for a diagnostic esophagogastroduodenoscopy and colonoscopy on Friday. We will start a clear liquid diet tomorrow and prep with 4 L of GoLYTELY as well. 2. Abnormal weight loss of unclear etiology. The patient does report some rectal bleeding and has never had a colonoscopy per his report. He does have some mild anemia as well. We will evaluate as above. 3. Uncontrolled hypertension. The patient is currently on multiple antihypertensive medication as per the primary team. This is now better controlled. 4. Chronic obstructive pulmonary disease. Notable wheezing on exam. The patient is currently stable on room air and does not appear to be having a chronic obstructive pulmonary disease exacerbation at this time. We will continue to monitor. 5. Anemia. This is normocytic. We will check iron studies, B12 and folate. Thank you for this consult. We will follow with you. Please call with any questions or concerns.
[2018-09-12] MEDS: VENTOLIN HFA INH SCH (13:23)
[2018-09-12 15:09] LABS: IRON SATURATION 28 %; TIBC 237 ug/dL; TOTAL IRON 67 ug/dL (53-167); UNBOUND IRON 170 ug/dL (112-346)
[2018-09-12] MEDS: ALBUTEROL NEB INH PRN (16:21)
--- NOTE | 2018-09-12 17:53 | PROGRESS NOTE ---
DATE: 09/12/2018 Interval history, no events overnight, gastroenterology had seen the patient and is planning EGD colonoscopy on Friday. SUBJECTIVE: Patient denying any new symptoms continues to have dysphagia to liquids. OBJECTIVE: Vitals: Temperature of 97.5 degrees, pulse of 49, blood pressure 130/68, saturating 97% on room air, he has positive orthostatic hypotension. Does not appear in any acute distress. Appears cachectic with protein calorie malnutrition. Oral cavity is moist. He has remarkably swollen turbinates of left nasal cavity. Air entry bilaterally equal. No wheeze, rhonchi or crackles. He does have transmitted breath sounds from his nasal cavity which makes his breathing noisy on auscultation. S1, S2 normal. No murmur, rub, or gallop. Abdomen soft, nontender. No abdominal bruit. No lower extremity edema. LABS: No new labs today. Iron panel except suggestive of normal ferritin, total iron-binding capacity suggestive anemia of chronic disease. ASSESSMENT AND PLAN: 1. Hypertensive emergency contributing to nausea, vomiting, abdominal pain. Continue hypertension management with amlodipine, metoprolol, olmesartan, clonidine and hydralazine. My plan is to modify the regimen as he has orthostatic hypotension . 2. Right-sided unilateral renal artery stenosis without kidney dysfunction, his plasma fractionated metanephrines has been within normal range, I will follow up with aldosterone and renin levels, I will manage it with ANJEL inhibitors and ARB. 3. Tobacco abuse and alcohol abuse extensively counseled about quitting them. No signs of alcohol withdrawal . 4. Dysphagia to liquids since last 3 weeks, considering his smoking and alcohol history and anemia gastroenterology is planning to evaluate that with EGD colonoscopy on September 14 . 5. Others, continue pravastatin for hyperlipidemia, aspirin, continue albuterol ipratropium nebulization for COPD and enoxaparin for DVT prophylaxis . 6. Disposition. Patient remains inside the hospital for need for EGD and colonoscopy . cc: Nicholas Darden MD
[2018-09-12] MEDS: SEROQUEL XR PO SCH (22:26)
[2018-09-12] MEDS: PRAVACHOL PO SCH (22:26)
[2018-09-13] MEDS: NORCO-10 PO PRN ×4 (00:01→18:51)
[2018-09-13] MEDS: LOVENOX SUBQ SCH (05:59)
[2018-09-13 07:06] LABS: AGAP 8; BUN 14 mg/dL (8-22); CALCIUM 9.1 mg/dL (8.8-10.2); CHLORIDE 100 mmol/L (98-107); COSMO 277; CREATININE 1.1 mg/dL (0.7-1.2); ESTIMATED GFR > 60; GLUCOSE 85 mg/dL (70-104); POTASSIUM 4.5 mmol/L (3.5-5.1); SODIUM 139 mmol/L (136-145); TCO2 31 mmol/L (25-35)
[2018-09-13] MEDS: ALBUTEROL NEB INH PRN (07:57)
[2018-09-13] MEDS: VENTOLIN HFA INH SCH (07:58)
[2018-09-13] MEDS: SPIRIVA INH SCH (07:59)
[2018-09-13] MEDS: DULERA 200 MCG/5 MCG INHALER INH SCH (08:00)
[2018-09-13] MEDS: CATAPRES PO SCH (08:07)
[2018-09-13] MEDS: APRESOLINE PO SCH ×2 (08:07→16:45)
[2018-09-13] MEDS: BENICAR PO SCH (08:07)
[2018-09-13] MEDS: SINGULAIR PO SCH (08:08)
[2018-09-13] MEDS: NORVASC PO SCH (08:08)
[2018-09-13] MEDS: CYMBALTA PO SCH (08:08)
[2018-09-13] MEDS: ASPIRIN EC PO SCH (08:08)
[2018-09-13] MEDS: ZYRTEC PO SCH (08:09)
[2018-09-13] MEDS: PRILOSEC PO SCH (08:09)
[2018-09-13] MEDS ORDERED: LOPRESSOR PO ONE (09:00)
--- NOTE | 2018-09-13 14:29 | PROVIDER PROGRESS NOTE ---
Progress Note - - SUBJECTIVE: No acute overnight events. No N/V/F, CP, SOB, CRAIG. He reports abdominal soreness from cough. No rectal bleeding or melena. Tolerating clears. OBJECTIVE: Last Vital Signs Temp 98.0 F 09/13/18 11:47 Pulse 95 H 09/13/18 13:00 Resp 16 09/13/18 11:47 BP 96/47 09/13/18 13:00 Pulse Ox 98 09/13/18 11:47 Height 6 ft Weight 133 lb GEN: awake, alert, NAD HEENT: anicteric, MMM Neck Supple, no JVD PULM: coarse BS throughout, improved wheezing CV: RRR, no murmurs ABD: soft NT/ND, NABS, no rebound or guarding EXT: no cce NEURO: nonfocal LABS: 09/12/18 09/12/18 09/12/18 13:38 13:38 13:38 Sodium Potassium Chloride Carbon Dioxide BUN Creatinine Iron 67 TIBC 237 Ferritin 170 Vitamin B12 306 Folate 09/12/18 09/13/18 13:38 06:00 Sodium 139 Potassium 4.5 Chloride 100 Carbon Dioxide 31 BUN 14 Creatinine 1.1 Iron TIBC Ferritin Vitamin B12 Folate 8.0 L A/P: Mr. Michael Joseph is a 63-year-old gentleman who presented with acute nausea , vomiting, and hypertensive emergency. On presentation, he reported having several weeks of solid food dysphagia. Esophogram was unrevealing for etiology of symptoms. Workup notable for normocytic anemia likely from folate deficiency. Plan for diagnostic EGD and colonoscopy for abnormal weight loss over the last several months. BP is better controlled on meds. #Dysphagia: continue PPI; NPO after MN for diagnostic EGD #Abnormal weight loss: unclear etiology; normal CXR; will prep with 4L golytely and plan for diagnostic colonoscopy tomorrow #Hypertensive emergency: improved: on BP meds as per primary team #COPD: improved wheezing; continue respiratory support #Folate deficiency: will repeat with folic acid 1mg daily #Anemia: folate as above; bidirectional endoscopy tomorrow planned with Dr. Hagan Will follow with you. Please call with questions or concerns
[2018-09-13] MEDS ORDERED: FOLIC ACID PO ONE (14:30)
[2018-09-13] MEDS ORDERED: GOLYTELY PO ONE (18:00)
--- NOTE | 2018-09-13 18:19 | PROGRESS NOTE ---
DATE: 09/13/2018 INTERVAL HISTORY: No acute overnight events. The patient will be started on bowel prep today. SUBJECTIVE: Patient denies new complaints. We discussed about EGD and colonoscopy tomorrow. I answered all of his questions. VITALS: Temperature 97.8, pulse 53, blood pressure 117/56, saturating 98% on room air. PHYSICAL EXAMINATION: General: Appears to have low body mass index. Does not appear in any acute distress. HEENT: Oral cavity is moist. He has swollen turbinates of left nasal cavity. Lungs: Air entry bilaterally equal. No wheezes, rhonchi, crackles. He does have transmitted breath sounds from his nasal cavity which makes his breathing sound noisy. Cardiovascular: S1, S2 normal. No murmur, rub or gallop. Abdomen: Soft, nontender. No abdominal bruit. No lower extremity edema. Neurologic: He is alert and oriented x 3. LABS: Normal electrolytes. Microbiology: No data. IMAGING: No new imaging. ASSESSMENT AND PLAN: 1. Hypertensive emergency contributing to nausea, vomiting, abdominal pain. Continue amlodipine olmesartan, clonidine and hydralazine. I will decrease metoprolol and stop it considering his orthostatic hypotension. 2. Right-sided unilateral renal artery stenosis without kidney dysfunction. His fractionated metanephrines have been within normal range. I will follow up with aldosterone and renin levels. We will manage it medically with ANJEL inhibitors and ARB. 3. Tobacco abuse. Alcohol abuse. I have extensively counseled him about quitting it. 4. Dysphagia to liquids since last 3 weeks. EGD and colonoscopy is planned on September 14. He has to get a bowel prep today. 5. Others, continue pravastatin for hyperlipidemia, aspirin. Continue albuterol ipratropium nebulization for COPD, enoxaparin for DVT prophylaxis to be held on the day of procedure. 6. Disposition: Patient remains inside the hospital while we get PT and while we get EGD. Patient has been ambulatory. Plan will be to discharge him home after EGD and colonoscopy. cc: Nicholas Darden MD
[2018-09-13] MEDS: PRAVACHOL PO SCH (22:44)
[2018-09-13] MEDS: SEROQUEL XR PO SCH (22:44)
[2018-09-14] MEDS: NORCO-10 PO PRN ×4 (00:11→17:39)
[2018-09-14] MEDS: CATAPRES PO SCH ×3 (04:16→21:30)
[2018-09-14] MEDS: APRESOLINE PO SCH ×4 (04:16→21:30)
[2018-09-14] MEDS: LOVENOX SUBQ SCH (05:12)
[2018-09-14] MEDS ORDERED: XYLOCAINE-MPF 2% ONE (08:43)
[2018-09-14] MEDS ORDERED: ROBINUL ONE (08:43)
[2018-09-14] MEDS ORDERED: DIPRIVAN 1% ONE (08:43)
[2018-09-14] MEDS ORDERED: FENTANYL ONE (08:44)
[2018-09-14] MEDS: BENICAR PO SCH (09:51)
[2018-09-14] MEDS: CYMBALTA PO SCH (09:52)
[2018-09-14] MEDS: FOLIC ACID PO SCH (09:52)
[2018-09-14] MEDS: ZYRTEC PO SCH (09:52)
[2018-09-14] MEDS: PRILOSEC PO SCH (09:52)
[2018-09-14] MEDS: SINGULAIR PO SCH (09:52)
[2018-09-14] MEDS: NORVASC PO SCH (09:52)
[2018-09-14] MEDS: ASPIRIN EC PO SCH (09:52)
[2018-09-14] MEDS: VENTOLIN HFA INH SCH (11:36)
[2018-09-14] MEDS: DULERA 200 MCG/5 MCG INHALER INH SCH (11:36)
[2018-09-14] MEDS: SPIRIVA INH SCH (11:37)
--- NOTE | 2018-09-14 11:40 | OPERATIVE NOTE ---
PROCEDURE DATE: 09/14/2018 PRIMARY CARE: TAMARA Santos TITLE OF PROCEDURE: 1. Esophagogastroduodenoscopy with gastric biopsy. 2. Esophageal dilation. 3. Colonoscopy. PREOPERATIVE DIAGNOSES: 1. Anemia. 2. Weight loss. 3. Dysphagia. 4. Hypertensive emergency. 5. Right-sided renal artery stenosis. 6. Chronic smoker. 7. Intractable nausea and vomiting. 8. Chronic pain. On narcotics. POSTOPERATIVE DIAGNOSES: 1. Schatzki ring, distal esophagus, which was dilated with 48-Spanish Davila dilator. 2. Z-line was at 46 cm. 3. Evidence of food in the stomach, suggesting gastroparesis. This could be opioid induced. 4. Evidence of gastroenteritis in the body and this was biopsied. 5. Normal fundus, cardia, incisura. 6. The stomach body could not be completely cleared of the food remnant. 7. Food in the duodenal bulb. 8. Normal duodenal bulb and second portion of duodenum. 9. Stool throughout the colon, poor prep. This was lavaged. There was evidence of diverticulosis in the sigmoid colon. 10. Internal and external hemorrhoids on retroflexion. 11. Evidence of hypertrophic anal papilla on retroflexion. ESTIMATED BLOOD LOSS: Minimal. COMPLICATIONS: None. ANESTHESIA: Monitored anesthesia care per the water jet loom fixer. SPECIMEN: Gastric random biopsy. DETAILS OF OPERATION: After informed consent, the patient was explained the risks, benefits, indications, alternatives to the procedure and patient prepared for EGD and colonoscopy. The risks of the procedure, including infection, bleeding, pain, trauma to the surrounding organs, perforation and were explained the patient, among others and he acknowledged and agreed to proceed with the procedure. He was brought to the OR. He was turned to left lateral position. A bite block was placed in patient mouth. After adequate monitored anesthesia care, the upper endoscope was introduced and advanced all the way to the second portion of the duodenum. The esophagus was normal in the proximal, middle third' There was a Schatzki ring at the distal third of the esophagus and the scope was able to traverse the area. The Z-line was at 46 cm. The stomach showed evidence of retained solid food suggesting gastroparesis. We were able to clean part of it. The underlying gastric mucosa showed erythema suggesting gastritis. This was biopsied. Retroflexion revealed normal fundus, cardia, incisura. The stomach body could not be completely cleared of the food debris. The duodenal bulb showed evidence of retained food. We were able to partially clear the area. The duodenal bulb showed normal mucosa. The second portion of duodenum appeared normal. The air was aspirated and scope withdrawn. The patient underwent Davila dilation with 48-Spanish successfully. Post-dilation EGD showed satisfactory dilation. The air was aspirated and scope withdrawn. The patient was turned around. Rectal exam was performed, which revealed normal rectum. No masses felt. There was evidence of external hemorrhoids noted. The colon scope was introduced through the anus and advanced all the way to the cecum. Cecum wall was identified and landmarks like IC valve and appendiceal orifice. There was evidence of stool throughout the colon causing limited visibility. The colon was lavaged. We did not notice any obstructing mass. We visualized scattered diverticulosis in the left colon, mostly in the sigmoid colon. On retroflexion, rectum revealed internal hemorrhoids. Grade 2. There was evidence of hypertrophic anal papilla noted on retroflexion. The air was aspirated and scope withdrawn. The patient tolerated the procedure well. Currently monitored in the OR in stable condition. I discussed the findings with the patient upon waking up and all questions were answered. RECOMMENDATIONS: 1. Patient will be started on full liquid diet, advanced as tolerated. 2. The patient is to avoid excessive corn, nuts, and seeds in diet. 3. The patient will be started on MiraLAX 17 g p.o. b.i.d. 4. Patient was counseled to quit smoking. 5. We will keep him on omeprazole 40 mg once daily for 3 months and then wean down to Zantac 150 mg BID as needed. 6. We will start him on Centrum once daily. 7. We will start him on Reglan 5 mg p.o. t.i.d. with meals and hold for side effects like tardive dyskinesia. Patient needs to reduce narcotics to lowest possible. 8. The patient will need repeat colonoscopy in a few weeks after discharge with 2 day preparation. He has never had a colonoscopy done in the past. 9. The patient was also counseled to reduce the use of narcotics as low as possible. 10. The patient will follow up in the clinic in 3 weeks after discharge to discuss the biopsy results. 11. Further recommendations to follow pending hospital course. Please call us with any further questions. cc: MD Sally Welsh CRNP Siddharth Patel, MD MTDD
[2018-09-14] MEDS: REGLAN LIQUID PO SCH (14:44)
--- NOTE | 2018-09-14 19:02 | PROGRESS NOTE ---
DATE: 09/14/2018 INTERVAL HISTORY: Patient underwent EGD colonoscopy, he was found to have Schatzki's ring which was dilated. He also was found to have food particles in the stomach, likely related to gastroparesis for which he was started on metoclopramide. His bowel preparation was poor though he was found to have diverticulosis. He should get a repeat colonoscopy as an outpatient. SUBJECTIVE: Patient is feeling better. He thinks his swallowing to liquid is slightly better than before. No other complaints. I discussed with him about EGD, colonoscopy finding, and I answered all of his questions currently. VITAL SIGNS: Temperature 98 degrees, pulse 60, respiratory rate 18, blood pressure 98/49, saturating 100% on room air. PHYSICAL EXAMINATION: General: He does not appear in any acute distress. He continues to have left-sided swollen nasal turbinates, which is better than before. Lungs: Air entry bilaterally equal. No wheeze, rhonchi or crackles. S1, S2 normal. No murmur, rub, or gallop. He does have low body mass index. Abdomen: Soft, nontender. No abdominal bruit. No lower extremity edema. Neurologic: Alert and oriented x3. LABORATORY DATA: Today, no CBC. BMP suggestive of normal BMP. ASSESSMENT AND PLAN: 1. Dysphagia to liquids since last 3 weeks. EGD had detected esophageal Schatzki ring status post dilatation and evidence of gastritis with likely gastroparesis. Continue proton pump inhibitors and metoclopramide as per Gastroenterology recommendation. He should get a repeat colonoscopy in the future as his bowel preparation was poor. He does have diverticulosis though. 2. Hypertensive emergency contributing to nausea, vomiting, abdominal pain on presentation. Continue olmesartan, clonidine, hydralazine. Metoclopramide has been stopped considering his orthostatic hypotension which he doesn't have symptoms of anymore. 3. Right-sided renal artery stenosis without kidney dysfunction. Continue olmesartan. His workup for secondary hypertension has been negative so far including on very low level metanephrines and low renin polysubstance abuse including tobacco abuse and alcohol abuse. He was counseled against using these substances. 4. Continue pravastatin for hyperlipidemia with aspirin, albuterol ipratropium nebulization for chronic obstructive pulmonary disease, enoxaparin for DVT. 5. Disposition: I will await the patient to tolerate diet. Once he is able to eat okay, my plan is to discharge him tomorrow to home. 6. Plan of care was discussed with him. All of his questions have been answered. cc: Nicholas Darden MD MTDD
[2018-09-14] MEDS: MIRALAX PO SCH (21:20)
[2018-09-14] MEDS: SEROQUEL XR PO SCH (21:23)
[2018-09-14] MEDS: PRAVACHOL PO SCH (21:24)
[2018-09-15] MEDS: NORCO-10 PO PRN ×4 (00:09→20:42)
[2018-09-15] MEDS: REGLAN LIQUID PO SCH (00:10)
[2018-09-15] MEDS: LOVENOX SUBQ SCH (06:05)
[2018-09-15] MEDS: ALBUTEROL NEB INH PRN ×2 (07:40→15:08)
[2018-09-15] MEDS: DULERA 200 MCG/5 MCG INHALER INH SCH (07:40)
[2018-09-15] MEDS: SPIRIVA INH SCH (07:43)
[2018-09-15] MEDS: VENTOLIN HFA INH SCH (07:46)
--- NOTE | 2018-09-15 09:41 | PROVIDER PROGRESS NOTE ---
Progress Note - - SUBJECTIVE: Patient reports having multiple episodes of NBNB emesis overnight. No fever, CP, SOB. He reports some abdominal discomfort and soreness. No rectal bleeding, diarrhea, or constipation. Patient tolerated whole breakfast this morning. OBJECTIVE: Last Vital Signs Temp 97.4 F L 09/15/18 07:26 Pulse 57 L 09/15/18 07:44 Resp 14 09/15/18 07:44 BP 125/57 09/15/18 07:26 Pulse Ox 97 09/15/18 07:44 Height 6 ft Weight 133 lb GEN: awake, alert, NAD HEENT: anicteric, MMM Neck Supple, no JVD PULM: coarse BS throughout, improved wheezing CV: RRR, no murmurs ABD: soft ND, NABS, mild TTP throughout; no rebound or guarding EXT: no cce NEURO: nonfocal LABS: No labs EGD 09/14/2018 POSTOPERATIVE DIAGNOSES: 1. Schatzki ring, distal esophagus, which was dilated with 48-Armenian Davila dilator. 2. Z-line was at 46 cm. 3. Evidence of food in the stomach, suggesting gastroparesis. This could be opioid induced. 4. Evidence of gastroenteritis in the body and this was biopsied. 5. Normal fundus, cardia, incisura. 6. The stomach body could not be completely cleared of the food remnant. 7. Food in the duodenal bulb. 8. Normal duodenal bulb and second portion of duodenum. 9. Stool throughout the colon, poor prep. This was lavaged. There was evidence of diverticulosis in the sigmoid colon. 10. Internal and external hemorrhoids on retroflexion. 11. Evidence of hypertrophic anal papilla on retroflexion. A/P: Mr. Michael Joseph is a 63-year-old gentleman who presented with acute nausea , vomiting, and hypertensive emergency. HTN controlled. GI consulted for solid food dysphagia. Diagnostic EGD and colonoscopy performed yesterday revealed widely patent Schatzki's ring s/p dilation, retained gastric contents suggestive for gastroparesis, and gastritis. [place] is on his home med list. Colonoscopy did not reveal any large malignancies; however, prep was poor. Colonic findings include diverticulosis and hemorrhoids. #Nausea/Vomiting: recommend stopping reglan and giving zofran as needed prior to meals given reglan side effect profile; small frequent low fat meals; minimize narcotics #Schatzki's ring: s/p dilation #Gastritis: gastric biopsies pending; continue PPI once daily #Abnormal weight loss: will need repeat colonoscopy with 2 day prep as outpatient #Folate deficiency: continue folic acid once daily #Anemia: from above #HTN: controlled Will follow with you. Please call with questions or concerns
[2018-09-15] MEDS: MIRALAX PO SCH ×2 (10:49→20:44)
[2018-09-15] MEDS: BENICAR PO SCH (10:49)
[2018-09-15] MEDS: CYMBALTA PO SCH (10:50)
[2018-09-15] MEDS: MOBIC PO SCH (10:50)
[2018-09-15] MEDS: APRESOLINE PO SCH ×3 (10:50→20:42)
[2018-09-15] MEDS: PRILOSEC PO SCH (10:51)
[2018-09-15] MEDS: CENTRUM SILVER PO SCH (10:51)
[2018-09-15] MEDS: CATAPRES PO SCH ×2 (10:51→20:42)
[2018-09-15] MEDS: SINGULAIR PO SCH (10:51)
[2018-09-15] MEDS: ZYRTEC PO SCH (10:51)
[2018-09-15] MEDS: ASPIRIN EC PO SCH (10:51)
[2018-09-15] MEDS: NORVASC PO SCH (10:52)
[2018-09-15] MEDS: FOLIC ACID PO SCH (10:52)
--- NOTE | 2018-09-15 11:14 | PROGRESS NOTE ---
DATE: 09/15/2018 INTERVAL HISTORY: The patient had an episode of vomiting overnight when he had vomited undigested food particles he had at the time of dinner. He tells me that yesterday he had some meat and some other solid stuff that did not digest and he vomited out. In the morning time by the time I saw him, he had eaten his breakfast and he feels a little nausea. We discussed with him about his gastroparesis finding and the fact that he would have to take some medicine before he starts eating food again to help prevent nausea. I answered all of his questions. OBJECTIVE: Vitals: Temperature 97.4 degrees, pulse 59, blood pressure 125/57, saturating 98% on room air. General: Appears in protein energy malnutrition. HEENT: Continues to have slight swelling of the left nasal turbinate, which is improved from presentation. Lungs: Air entry bilaterally equal. No wheeze, rhonchi, crackles. Cardiovascular: S1, S2 normal. No murmur, rub, or gallop. Abdomen: Appears scaphoid, soft, mildly tender in epigastric region. No abdominal bruit. No lower extremity edema. Neurologic: He is alert and oriented x3. LABORATORIES: Suggestive of normal electrolytes with normal kidney function. ASSESSMENT AND PLAN: 1. Dysphagia to liquids since last 3 weeks, status post EGD and dilatation of Schatzki's ring with evidence of gastritis and gastroparesis. Continue proton pump inhibitors. Vomiting: His metoclopramide has been changed to Zofran considering side effects profile to address his gastroparesis. Continue diet as per Gastroenterology recommendation. He would eventually need a repeat colonoscopy to further evaluate his colon as the colon prep was inadequate at this time. 2. Hypertensive emergency on presentation likely because of medication noncompliance, now resolved. Continue olmesartan, clonidine and hydralazine. 3. Orthostatic hypotension, resolved. Use of metoclopramide could have been contributing to it along with clonidine. 4. Right-sided unilateral renal artery stenosis without kidney dysfunction. Continue olmesartan. Workup for secondary hypertension, including renin, aldosterone and metanephrines have been unremarkable. 5. Others, continue pravastatin for hyperlipidemia with aspirin, albuterol ipratropium nebulization for history of COPD, which is not in any acute exacerbation, enoxaparin for DVT prophylaxis. 6. Disposition. I will await the patient to tolerate his diet and if he is able to do that, I will plan discharging him tomorrow, making sure he does not have nausea and vomiting. Previously, it was also thought that his home use of opioids could be contributing to his gastroparesis. cc: Nicholas Darden MD MTDD
[2018-09-15] MEDS: ZOFRAN IV SCH ×2 (12:07→17:20)
[2018-09-15] MEDS: PRAVACHOL PO SCH (20:42)
[2018-09-15] MEDS: SEROQUEL XR PO SCH (20:42)
[2018-09-16] MEDS: NORCO-10 PO PRN ×3 (03:06→20:37)
[2018-09-16] MEDS: LOVENOX SUBQ SCH (06:13)
[2018-09-16] MEDS: ZOFRAN IV SCH ×5 (06:13→20:39)
[2018-09-16] MEDS: REGLAN PO SCH ×3 (06:13→16:34)
[2018-09-16] MEDS: DULERA 200 MCG/5 MCG INHALER INH SCH (07:47)
[2018-09-16] MEDS: SPIRIVA INH SCH (07:48)
[2018-09-16] MEDS: VENTOLIN HFA INH SCH (07:48)
[2018-09-16 10:04] LABS: BASO# 0.03 X1000 (0.0-0.2); BASO% 0.4 % (0.0-0.8); EOS# 0.21 X1000 (0.0-0.7); HEMATOCRIT 33.8 % (42.0-52.0); HEMOGLOBIN 10.8 g/dL (14.0-18.0); LYMPH# 1.43 X1000 (1.2-3.4); LYMPH% 20.3 % (20.5-51.1); MCH 30.3 PG (27-31); MCV 94.9 FL (81-99); MONO# 0.64 X1000 (0.11-0.59); MONO% 9.1 % (1.7-9.3); MPV 10.9 FL (7.4-10.4); NEUT# 4.74 X1000 (1.4-6.5); NEUT% 67.2 % (42.2-75.2); PLT 233 X1000 (130-400); RBC 3.56 XMIL (4.7-6.1); RDW 14.4 % (11.5-14.5); WBC 7.05 X1000 (4.8-10.8)
--- NOTE | 2018-09-16 10:19 | PROVIDER PROGRESS NOTE ---
Progress Note - - SUBJECTIVE: Patient reports having nausea and vomiting again overnight but was able to tolerate breakfast this AM. No fevers, CP, SOB. He has mild dizziness and headache. OBJECTIVE: Last Vital Signs Temp 98.5 F 09/16/18 07:43 Pulse 68 09/16/18 07:48 Resp 18 09/16/18 07:48 BP 138/61 09/16/18 07:43 Pulse Ox 95 09/16/18 07:48 Height 6 ft Weight 133 lb GEN: awake, alert, NAD HEENT: anicteric, MMM Neck Supple, no JVD PULM: coarse BS throughout, minimal wheezing CV: RRR, no murmurs ABD: soft ND, NABS, mild TTP throughout; no rebound or guarding EXT: no cce NEURO: nonfocal LABS: No labs EGD 09/14/2018 POSTOPERATIVE DIAGNOSES: 1. Schatzki ring, distal esophagus, which was dilated with 48-Khmer Davila dilator. 2. Z-line was at 46 cm. 3. Evidence of food in the stomach, suggesting gastroparesis. This could be opioid induced. 4. Evidence of gastroenteritis in the body and this was biopsied. 5. Normal fundus, cardia, incisura. 6. The stomach body could not be completely cleared of the food remnant. 7. Food in the duodenal bulb. 8. Normal duodenal bulb and second portion of duodenum. 9. Stool throughout the colon, poor prep. This was lavaged. There was evidence of diverticulosis in the sigmoid colon. 10. Internal and external hemorrhoids on retroflexion. 11. Evidence of hypertrophic anal papilla on retroflexion. EXAM: CT ANGIOGRAM RENAL ARTERIES 09/10/2018 HISTORY: malignant hypertension TECHNIQUE: This exam was performed using automated exposure control, adjustment of mA or kV according to patient size, and/or use of iterative reconstruction technique. COMMENT: 3-D MIPS were performed. The current study is compared with the previous examination of 09/12/2017. There is atelectasis in the right posterior costophrenic sulcus which was not present at the time the previous examination. There is extensive calcific and noncalcific atherosclerotic plaque formation in the aorta. There is no evidence of aneurysm. The mesenteric arteries are patent. There is some atherosclerotic plaque in the proximal left renal artery. There is calcific plaque present at the ostium of the right renal artery. There is somewhat irregular stenosis of the first 9 mm of the main right renal artery. This is somewhat more apparent than on the previous examination and is more obvious on the MIPS images than on the cross-sectional images. This is particularly true of the irregularity of the lumen. There is bilateral accessory lower pole renal arteries. Some cortical scarring is present in the left kidney in the mid portion posteriorly. Formerly there was a cyst in this location which appears to have largely disappeared. IMPRESSION: Atherosclerotic changes with likely significant stenosis of the proximal main right renal artery. A/P: Mr. Michael Joseph is a 63-year-old gentleman who presented with acute nausea , vomiting, and malignant hypertension HTN controlled. Mickeyt has right ALEXIS. GI consulted for solid food dysphagia. Diagnostic EGD and colonoscopy performed 09/14 revealed widely patent Schatzki's ring s/p dilation, retained gastric contents suggestive for gastroparesis, and gastritis. Winger is on his home med list. Colonoscopy did not reveal any large malignancies; however, prep was poor. Colonic findings include diverticulosis and hemorrhoids. He continues to have intermittent nausea and vomiting particularly at night and none during the day. No recent labs. Recent CT was unrevealing for any bowel obstruction or any acute findings per my read. #Nausea/Vomiting: will change to scheduled zofran AC and HS; small frequent low fat meals; minimize narcotics; AM labs ordered #Schatzki's ring: s/p dilation #Gastritis: gastric biopsies pending; continue PPI once daily #Abnormal weight loss: will need repeat colonoscopy with 2 day prep as outpatient #Folate deficiency: continue folic acid once daily #Anemia: from above #HTN: controlled Will follow with you. Please call with questions or concerns
[2018-09-16] MEDS: PRILOSEC PO SCH (10:22)
[2018-09-16] MEDS: CYMBALTA PO SCH (10:22)
[2018-09-16] MEDS: CATAPRES PO SCH ×2 (10:22→20:38)
[2018-09-16] MEDS: ZYRTEC PO SCH (10:23)
[2018-09-16] MEDS: ASPIRIN EC PO SCH (10:23)
[2018-09-16] MEDS: NORVASC PO SCH (10:23)
[2018-09-16] MEDS: CENTRUM SILVER PO SCH (10:23)
[2018-09-16] MEDS: FOLIC ACID PO SCH (10:23)
[2018-09-16] MEDS: SINGULAIR PO SCH (10:23)
[2018-09-16] MEDS: BENICAR PO SCH (10:24)
[2018-09-16] MEDS: MOBIC PO SCH (10:24)
[2018-09-16] MEDS: APRESOLINE PO SCH ×3 (10:24→20:38)
[2018-09-16] MEDS: MIRALAX PO SCH ×2 (10:24→20:39)
[2018-09-16 11:35] LABS: AGAP 8; ALB/GLOB RATIO 1.3; ALBUMIN 3.3 g/dL (3.5-5.0); ALKALINE PHOSPHATASE 58 U/L (32-122); BUN 13 mg/dL (8-22); CALCIUM 8.6 mg/dL (8.8-10.2); CHLORIDE 102 mmol/L (98-107); COSMO 273; ESTIMATED GFR > 60; GLUCOSE 122 mg/dL (70-104); GOT 12 U/L (10-34); GPT 10 U/L (10-44); POTASSIUM 4.1 mmol/L (3.5-5.1); SODIUM 136 mmol/L (136-145); TCO2 26 mmol/L (25-35); TOTAL BILIRUBIN 0.22 mg/dL (0.20-1.00); TOTAL PROTEIN 5.8 g/dL (6.3-8.3)
--- NOTE | 2018-09-16 13:09 | PROGRESS NOTE ---
DATE: 09/16/2018 INTERVAL HISTORY: The patient ate his entire breakfast but he states that he is feeling sick inside the stomach and is complaining of crampy abdominal pain. He also is feeling nauseous but has not had a vomiting episode. His Zofran has been changed with meals and at nighttime on a scheduled basis to help him. I discussed with him about his condition and answered all of his questions currently. OBJECTIVE: Vital signs: Temperature 98.5 degrees, pulse 69, respiratory rate 20, blood pressure 118/60, saturating 96% on room air. General: Does not appear in any acute distress. HEENT: Oral cavity is moist. Lungs: Air entry bilaterally equal. No wheeze, rhonchi , crackles. Cardiovascular: He has S1, S2 normal. No murmur, rub, or gallop. Abdomen: Scaphoid. It is soft, mildly tender in the epigastric region. No abdominal bruit. Active bowel sounds. Extremities: No lower extremity edema. Neurologic: Alert and oriented x3. He appears to have protein energy malnutrition. LABORATORY DATA: Today suggestive of normocytic anemia, normal electrolytes and normal kidney function. ASSESSMENT AND PLAN: 1. Acute nausea with intermittent vomiting, likely in the setting of gastroparesis as was evidenced during EGD. Continue patient on Zofran with meals and at nighttime as per Gastroenterology recommendation. Continue omeprazole, which is his home medication. 2. Dysphagia since last 3 weeks with barium swallow follow-through study did not detect any acute obstructive pathology. Now status post EGD and dilatation of Schatzki's ring on 09/14/2018 with evidence of gastritis and gastroparesis. Continue proton pump inhibitors. His dysphagia has improved somewhat. He would eventually need a repeat colonoscopy outpatient as his colon prep was poor, though he did have diverticulosis. 3. Hypertensive emergency on presentation, likely due to medication noncompliance, resolved. Continue olmesartan, clonidine and hydralazine. 4. Orthostatic hypotension during hospital admission, resolved. Use of beta blockers with clonidine could have contributed to it. He is off beta blockers now. 5. Right-sided unilateral renal artery stenosis without kidney dysfunction. Continue olmesartan. Workup for secondary hypertension including renin aldosterone, metanephrines have been negative. 6. Others. Continue pravastatin for hyperlipidemia with aspirin, albuterol ipratropium nebulization for history of COPD, enoxaparin for DVT prophylaxis. 7. Disposition. I am waiting for patient's GI symptoms to get better. If with today's meals he does not have vomiting, we can consider discharging him on September 17 on Zofran, which is now changed on scheduled basis rather than p.r.n. Plan of care was discussed with him. All of his questions have been answered. cc: Nicholas Darden MD MTDD
[2018-09-16] MEDS: ALBUTEROL NEB INH PRN (19:00)
[2018-09-16] MEDS: PRAVACHOL PO SCH (20:38)
[2018-09-16] MEDS: SEROQUEL XR PO SCH (20:39)
[2018-09-17] MEDS: NORCO-10 PO PRN ×3 (06:18→22:18)
[2018-09-17] MEDS: REGLAN PO SCH ×3 (06:19→15:43)
[2018-09-17] MEDS: LOVENOX SUBQ SCH (06:19)
[2018-09-17] MEDS: ZOFRAN IV SCH ×4 (06:19→22:17)
[2018-09-17] MEDS: SPIRIVA INH SCH (09:07)
[2018-09-17] MEDS: DULERA 200 MCG/5 MCG INHALER INH SCH (09:07)
[2018-09-17] MEDS: VENTOLIN HFA INH SCH (09:08)
[2018-09-17] MEDS: CYMBALTA PO SCH (11:00)
[2018-09-17] MEDS: BENICAR PO SCH (11:08)
[2018-09-17] MEDS: PRILOSEC PO SCH (11:08)
[2018-09-17] MEDS: MIRALAX PO SCH ×2 (11:08→22:16)
[2018-09-17] MEDS: CENTRUM SILVER PO SCH (11:09)
[2018-09-17] MEDS: NORVASC PO SCH (11:09)
[2018-09-17] MEDS: ZYRTEC PO SCH (11:09)
[2018-09-17] MEDS: CATAPRES PO SCH ×2 (11:09→22:16)
[2018-09-17] MEDS: ASPIRIN EC PO SCH (11:09)
[2018-09-17] MEDS: FOLIC ACID PO SCH (11:09)
[2018-09-17] MEDS: APRESOLINE PO SCH ×3 (11:09→22:16)
[2018-09-17] MEDS: SINGULAIR PO SCH (11:09)
--- NOTE | 2018-09-17 15:18 | GASTROENTEROLOGY PROGRESS NOTE ---
DATE: 09/17/2018 SUBJECTIVE: Resting in bed. He is feeling better. He denies any new complaints. Denies any nausea or vomiting. Denies any fevers, rigors, chills. He denies any vomiting blood or passing blood in the stools. He is moving his bowels. OBJECTIVE: Vital Signs: Temp 97.7, pulse rate of 73, respiratory rate 14, blood pressure 135/62. Saturating 94% on room air. General Appearance: Moderately-built, lying in bed , in no acute distress. HEENT: Pale conjunctivae. No icterus. Neck: Supple. Abdomen: Soft, nontender, nondistended. No guarding or rebound. Extremities: No cyanosis, clubbing. Neurologic: Alert, awake, oriented. LABS: His hemoglobin and hematocrit is 10.8 and 33.8, white count of 7.05, platelet count of 230,000. Sodium 136, potassium 4.1, chloride 102, bicarb 26, anion gap of 8, BUN of 13, creatinine 1, glucose of 102, calcium is 8.6. Total bilirubin is 0.22, AST 12, ALT 10, alkaline phosphatase 58, total protein 5.8, albumin of 3.3. IMPRESSION AND PLAN: 1. Intermittent nausea likely secondary to gastroparesis, which could be related to opioid abuse. The patient was counseled to wean down narcotics as low as possible. Will continue Reglan 5 mg 3 times daily. We can go up on Reglan 10 mg 3 times daily and hold for side effects like tardive dyskinesia. 2. Dysphagia, status post esophagogastroduodenoscopy with dilation. Was counseled to continue on PPIs and chew the food well. 3. Constipation and poor prep on colonoscopy. We will continue MiraLAX for now and he will need a repeat colonoscopy in a few weeks after discharge, with a 2 day prep. 4. Hypertensive emergency presentation likely secondary to medication noncompliance. I have encouraged compliance with medications with the patient. 5. Right-sided unilateral renal artery stenosis without kidney dysfunction, aware. 6. Chronic smoker. Patient counseled to quit smoking. 7. DVT prophylaxis, Lovenox. I will discontinue his Mobic. 8. Above plan of care discussed with the patient and all questions answered. Please call us with any further questions. cc: MD Jared Welsh, MD [facility]
--- NOTE | 2018-09-17 19:17 | PROGRESS NOTE ---
DATE: 09/17/2018 SUBJECTIVE: The patient seems to be doing a little bit better today. He has been tolerating his food, but he is still having some nausea. Likely, I will discharge this patient in the morning. OBJECTIVE: Vital Signs: Temperature 98.3 degrees, pulse 65, respiratory rate 13, blood pressure 143/67, oxygen saturation 97% on room air. HEENT: Head normocephalic. No trauma. PERRLA. Neck: Supple. No JVD. No masses. Central trachea. Chest: Coarse breath sounds bilaterally. Abdomen: Soft, nontender, nondistended. No hepatosplenomegaly. Some tenderness to palpation at the level of the epigastric area. Extremities: No edema. No clubbing. No cyanosis. Neurological: The patient is alert and oriented x3. No focal deficits. LABORATORY DATA: WBC 7, hemoglobin 10.8, hematocrit 33.8, platelets 233. Sodium 136, potassium 4.1, chloride 102, bicarbonate 26, BUN 13, creatinine 1, glucose 122, calcium 8.6, AST 12, ALT 10, alkaline phosphatase 58, albumin 3.3. ASSESSMENT AND PLAN: 1. Nausea and vomiting. Likely related to gastroparesis evidenced during EGD. The patient has been getting Reglan and also Zofran. He is feeling better, but he is still having some nausea. I do believe I will be able to discharge this patient tomorrow. 2. Dysphagia status post esophagogastroduodenoscopy (EGD) with dilation of the Schatzki's ring on 09/14/2018. Continue to monitor. 3. Hypertensive emergency on presentation, better. Continue with same management. 4. Orthostatic hypotension during hospitalization, resolved. Probably related to beta blockers and clonidine use. 5. Right-sided unilateral renal artery stenosis without kidney dysfunction. Aware. Continue with olmesartan. Workup for secondary hypertension including renin, aldosterone, metanephrines has been negative. 6. Hyperlipidemia. Continue with pravastatin. 7. History of chronic obstructive pulmonary disease (COPD). Continue with breathing treatment. cc: Jared Bonds MD
[2018-09-17] MEDS: SEROQUEL XR PO SCH (22:16)
[2018-09-17] MEDS: PRAVACHOL PO SCH (22:17)
[2018-09-18] MEDS: NORCO-10 PO PRN ×2 (05:19→11:23)
[2018-09-18] MEDS: LOVENOX SUBQ SCH (05:21)
[2018-09-18] MEDS: ZOFRAN IV SCH ×2 (06:39→11:24)
[2018-09-18] MEDS: REGLAN PO SCH ×2 (06:39→11:24)
[2018-09-18 07:01] LABS: BASO# 0.01 X1000 (0.0-0.2); BASO% 0.1 % (0.0-0.8); EOS# 0.27 X1000 (0.0-0.7); EOS% 3.5 % (0.0-10.0); HEMATOCRIT 34.9 % (42.0-52.0); HEMOGLOBIN 11.2 g/dL (14.0-18.0); IMM GRAN# 0.02 X1000 (0.0-0.04); IMM GRAN% 0.3 % (0.0-0.5); LYMPH# 1.47 X1000 (1.2-3.4); LYMPH% 18.8 % (20.5-51.1); MCH 30.3 PG (27-31); MCHC 32.1 g/dL (33-37); MCV 94.3 FL (81-99); MONO# 0.64 X1000 (0.11-0.59); MONO% 8.2 % (1.7-9.3); NEUT# 5.41 X1000 (1.4-6.5); NEUT% 69.1 % (42.2-75.2); PLT 258 X1000 (130-400); RDW 13.9 % (11.5-14.5); WBC 7.82 X1000 (4.8-10.8)
[2018-09-18 07:36] LABS: AGAP 9; BUN 16 mg/dL (8-22); CALCIUM 8.8 mg/dL (8.8-10.2); CHLORIDE 102 mmol/L (98-107); COSMO 280; CREATININE 1.1 mg/dL (0.7-1.2); ESTIMATED GFR > 60; GLUCOSE 130 mg/dL (70-104); POTASSIUM 4.3 mmol/L (3.5-5.1); SODIUM 139 mmol/L (136-145); TCO2 28 mmol/L (25-35)
[2018-09-18] MEDS: SPIRIVA INH SCH (08:07)
[2018-09-18] MEDS: VENTOLIN HFA INH SCH (08:08)
[2018-09-18] MEDS: DULERA 200 MCG/5 MCG INHALER INH SCH (08:08)
[2018-09-18 08:12] VITALS: BP 128/62
[2018-09-18] MEDS: CATAPRES PO SCH (09:23)
[2018-09-18] MEDS: ASPIRIN EC PO SCH (09:23)
[2018-09-18] MEDS: APRESOLINE PO SCH (09:23)
[2018-09-18] MEDS: NORVASC PO SCH (09:24)
[2018-09-18] MEDS: PRILOSEC PO SCH (09:24)
[2018-09-18] MEDS: BENICAR PO SCH (09:24)
[2018-09-18] MEDS: MIRALAX PO SCH (09:24)
[2018-09-18] MEDS: ZYRTEC PO SCH (09:24)
[2018-09-18] MEDS: FOLIC ACID PO SCH (09:24)
[2018-09-18] MEDS: CENTRUM SILVER PO SCH (09:24)
[2018-09-18] MEDS: SINGULAIR PO SCH (09:24)
[2018-09-18] MEDS: CYMBALTA PO SCH (09:24)
--- NOTE | 2018-09-18 15:19 | PROVIDER PROGRESS NOTE ---
Progress Note - - DATE 09/18/2018 SUBJECTIVE: No acute overnight events. No further N/V. Tolerating diet with reglan use OBJECTIVE: Last Vital Signs Temp 97.8 F 09/18/18 08:00 Pulse 54 L 09/18/18 08:00 Resp 16 09/18/18 08:00 BP 128/62 09/18/18 08:00 Pulse Ox 95 09/18/18 08:09 Height 6 ft Weight 133 lb GEN: awake, alert, NAD HEENT: anicteric, MMM NECK: supple, no jvd ABD: soft NT/ND, NABS CV: RRR, no murmurs PULM: coarse BS throughout EXT: no cce NEURO: nonfocal LABS: none A/P: Mr. Michael Joseph is a 63-year-old gentleman who presented with acute nausea , vomiting, and malignant hypertension HTN controlled. Denystent has right ALEXIS. GI consulted for solid food dysphagia. Diagnostic EGD and colonoscopy performed 09/14 revealed widely patent Schatzki's ring s/p dilation, retained gastric contents suggestive for gastroparesis, and gastritis. Colonoscopy did not reveal any large malignancies; however, prep was poor. N/V improved with antiemetics. Will continue. He will need colonoscopy as outpatient given poor prep. #Nausea/Vomiting: improved; probable gastroparesis; likely iatrogenic; minimize norcotics #Schatzki's ring: s/p dilation #Gastritis: continue PPI once daily #Abnormal weight loss: will need repeat colonoscopy with 2 day prep as outpatient #Folate deficiency: continue folic acid once daily #Anemia: from above #HTN: controlled Patient being discharged today Will sign off. Please call with questions or concerns
--- NOTE | 2018-09-19 14:35 | DISCHARGE SUMMARY ---
ADMISSION DATE: 09/09/2018 DISCHARGE DATE: 09/18/2018 DISCHARGE DIAGNOSES: 1. Intractable nausea, vomiting, gastroparesis evidenced during esophagogastroduodenoscopy. 2. Dysphagia status post esophagogastroduodenoscopy with dilation of the Schatzki ring. 3. Hypertensive emergency on presentation. 4. Orthostatic hypotension during hospitalization. 5. Right-sided unilateral renal artery stenosis without kidney dysfunction. 6. Hyperlipidemia. 7. History of chronic obstructive pulmonary disease. Not in exacerbation. PROCEDURES PERFORMED: 1. Chest x-ray dated 09/09/2018. Impression: Negative exam. 2. Abdomen x-ray dated 09/09/2018. Impression: Mild gaseous distention of stomach, nonspecific bowel gas pattern otherwise. Apparent constipation. 3. Renal artery renal arteriogram dated 09/10/2018. Impression: Atherosclerotic changes with likely significant stenosis of the proximal main right renal artery. 4. Upper GI barium swallow dated 09/10/2018. Impression: Presbyesophagus esophagus. No evidence of reflux. Mild scarring of the duodenal bulb and questionable duodenitis. 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 He comes to our facility often for blood pressure elevation and alcohol withdrawal; however, he has not had a drink, per his report, since last time he was here, he went to his PCP at the beginning of the week for abdominal pain, difficulty swallowing, nausea and some vomiting. He called back today saying his symptom have not improve and was in instructed to come to the hospital for further treatment and evaluation. When he arrived to the floor, his blood pressure initially was noted to be 222/98, his heart rate was in the 70s. He denies any chest pain, no shortness of breath but he reports that his knees give out sometimes because they hurt so bad when he walks. He denies any syncope, presyncope or visual changes. He was admitted for further treatment. An abdominal x-ray was performed and showed a mild gaseous distention of the stoma, nonspecific bowel gas pattern otherwise, and possible constipation. X-ray with no new abnormality. Also, we asked for a renal arteriogram that showed atherosclerotic changes with likely significant stenosis of the proximal main right renal artery, upper GI barium swallow showed presbyesophagus, no evidence of reflux, mild scarring of the duodenal bulb and questionable duodenitis. Because of the unilateral renal arteriosclerosis, metanephrine, aldosterone and renin lab work was ordered, which basically were normal. We believe at the beginning that this patient's nausea, vomiting and abdominal pain was a little bit related to the hypertensive emergency, also he started having some orthostatic hypotension. He was on beta beti and clonidine at the same time so we stopped the metoprolol and then the symptoms improved after a few days. Gastroenterology Department evaluated this patient due to his dysphagia and nausea, vomiting. They decided to go ahead and do an EGD with gastric biopsy and esophageal dilation and colonoscopy. The postoperative diagnosis showed a Schatzki ring, distal esophagus, which was dilated, evidence of food in the stomach suggesting gastroparesis which could be opioid-induced, evidence of gas gastroenteritis in the body and this was biopsied as well, normal fundus, cardia and incisura, the stomach body could not be completely cleared from the food remnant. Also he has stool throughout the colon, poor prep, this was lavaged. There was evidence of diverticulosis in the sigmoid colon, internal and external hemorrhoids on retroflexion, and evidence of hypertrophic anal papillae on retroflexion as well. This patient was placed then on Reglan 5 mg before each meal and he started to feel better on a daily basis, also he started having multiple bowel movements every day, he started tolerating p.o. Since he had a colonoscopy with some stools, they will repeat it as an outpatient. In the meantime, we continued with the medications and the supportive treatment that he was getting during this hospitalization. Today, this patient is completely good, he is not complaining of abdominal pain. He is not having nausea or vomiting. He was tolerating his food. Also, he was ambulating. This is why we decided to discharge this patient with an active followup by Gastroenterology Department on 10/12/2018 at 8:30 a.m., and his primary care doctor in 1 week. PHYSICAL EXAMINATION: Vital signs: Temperature 97.8 degrees, pulse 54 respiratory rate 16, blood pressure 128/62, oxygen saturation 96 on room air. Head: Normocephalic. No trauma. PERRLA. Neck: Supple. No JVD. No masses. Central trachea. Chest: Clear to auscultation. No wheezing. No rales. Abdomen: Soft, nontender, nondistended. A little discomfort at the area of the epigastric area. Extremities: No edema. No clubbing. No cyanosis. Neurological: The patient is alert and oriented x3. No focal deficits. LABORATORY DATA: WBC 7.8, hemoglobin 11.2, hematocrit 34.9, platelet 258,000. Sodium 139, potassium 4.3, chloride 102, bicarbonate 28, BUN 16, creatinine 1.1, glucose 130, calcium 8.8. DISCHARGE MEDICATIONS: 1. Chlorthalidone 25 mg p.o. daily. 2. Spiriva 2.5 mcg inhaler daily. 3. Seroquel 50 mg p.o. at bedtime. 4. Pravastatin 20 mg p.o. at bedtime. 5. Omeprazole 40 mg p.o. daily. 6. Olmesartan 40 mg p.o. daily. 7. Montelukast 1 tablet p.o. daily. 8. Dulera 200 mcg/5 mcg 2 inhalations once a day. 9. Robaxin 500 mg p.o. b.i.d. as needed. 10. Hydralazine 50 mg p.o. t.i.d. 11. Vitamin D2 85403 units p.o. daily. 12. Cymbalta 60 mg p.o. daily. 13. Clonidine 0.1 mg p.o. b.i.d. 14. Cetirizine 10 mg p.o. daily. 15. Aspirin 81 mg p.o. daily. 16. Amlodipine 10 mg p.o. daily. 17. Albuterol sulfate 90 mcg inhaler daily. 18. Albuterol nebulizer 2.5 mg inhaler, inhaled q.4 hours as needed for shortness of breath. 19. MiraLAX 17 g p.o. b.i.d., can be reduced to once a day if more than 2 bowel movements per day. 20. Centrum Silver 1 tablet p.o. daily. 21. Reglan 5 mg p.o. t.i.d. 22. Spring. Will continue with his home dose 10 mg/325 mg p.o. q.6 hours as needed, patient has been instructed to decrease the dose and the frequency of this medication due to his gastroparesis. 23. Folic acid 1 mg p.o. daily. TIME SPENT DISCHARGING THIS PATIENT: 35 minutes. cc: Jared Bonds MD
== END 2018-09-18 11:53 | disposition home or self-care (01) | DRG 392 ==
LOC: SUATTDRO 10:19 → DIRADM 10:19 → 4N 12:04
PROVIDERS: ATTEND Internal Medicine
CPT/HCPCS: 71010; 71045; 74019; 74020; 74175; 74246; 80048; 80053; 80101; 80301; 80307; 80320; 80324; 80345; 80346; 80353; 80358; 80361; 80365; 81001; 82055; 82088; 82550; 82607; 82728; 82746; 83540; 83550; 83735; 83835; 83992; 84100; 84244; 84484; 85025; 85610; 85651; 86140; 88305; 88312; 93005; 93010; 94640; 94760; 94761; 97162; A9270; G0431; G0434; G0479; G0480; G6040; J0360; J1650; J2405; J3010; J3480; J7040; Q9967

== ENCOUNTER 2019-06-14 04:08 | Inpatient (IN) ==
[2019-06-14 08:39] LABS: URINE SOURCE CATH
[2019-06-14 08:53] LABS: BILIRUBIN URINE NEGATIVE (NEGATIVE); BLOOD URINE NEGATIVE (NEGATIVE); COLOR STRAW; GLUCOSE URINE NEGATIVE (NEGATIVE); KETONE URINE NEGATIVE (NEGATIVE); LEUKOCYTES URINE NEGATIVE (NEGATIVE); NITRITE URINE NEGATIVE (NEGATIVE); PH URINE 5.5; PROTEIN URINE NEGATIVE (NEGATIVE); SP GRAVITY URINE 1.005; TURBIDITY URINE CLEAR (CLEAR); UROBILINOGEN URINE NORMAL (NORMAL)
[2019-06-14 08:54] LABS: UR EPITHELIAL CELLS <10 /HPF (<10); URINE BACTERIA NEGATIVE /HPF; URINE RBC <10 /HPF (<10); URINE WBC <10 /HPF (<10)
[2019-06-15 06:46] LABS: HEMATOCRIT 36.2 % (42.0-52.0); HEMOGLOBIN 11.6 g/dL (14.0-18.0)
[2019-06-15 07:08] LABS: CALCIUM 9.3 mg/dL (8.8-10.2); CREATININE 1.5 mg/dL (0.7-1.2); POTASSIUM 4.9 mmol/L (3.5-5.1)
[2019-06-15 11:35] VITALS: BP 171/78
== END 2019-06-15 14:50 | disposition home health service (06) | DRG 470 ==
LOC: SURHOLD 04:08 → 4N 07:37
PROVIDERS: ADMIT Orthopaedic Surgery; ATTEND Orthopaedic Surgery

== ENCOUNTER 2019-06-15 21:57 | Inpatient (IN) ==
[2019-06-15 23:13] LABS: BASO# 0.01 X1000 (0.0-0.2); BASO% 0.1 % (0.0-0.8); HEMATOCRIT 44.4 % (42.0-52.0); HEMOGLOBIN 14.9 g/dL (14.0-18.0); IMM GRAN# 0.04 X1000 (0.0-0.04); IMM GRAN% 0.2 % (0.0-0.5); LYMPH# 0.88 X1000 (1.2-3.4); LYMPH% 5.3 % (20.5-51.1); MCH 28.9 PG (27-31); MCHC 33.6 g/dL (33-37); MCV 86.2 FL (81-99); MONO% 7.2 % (1.7-9.3); MPV 11.5 FL (7.4-10.4); NEUT# 14.57 X1000 (1.4-6.5); NEUT% 87.2 % (42.2-75.2); PLT 248 X1000 (130-400); RBC 5.15 XMIL (4.7-6.1); RDW 13.3 % (11.5-14.5)
[2019-06-15 23:36] LABS: ALB/GLOB RATIO 1.4; ALBUMIN 4.6 g/dL (3.5-5.0); CALCIUM 9.8 mg/dL (8.8-10.2); CREATININE 1.4 mg/dL (0.7-1.2); POTASSIUM 4.3 mmol/L (3.5-5.1); TOTAL BILIRUBIN 0.48 mg/dL (0.20-1.00); TOTAL PROTEIN 7.8 g/dL (6.3-8.3)
[2019-06-16] MEDS ORDERED: NS 1,000 ML IV ONE (00:15)
[2019-06-16] MEDS ORDERED: MORPHINE IV ONE (00:15)
[2019-06-16] MEDS ORDERED: ZOFRAN IV ONE (00:15)
[2019-06-16 00:47] LABS: URINE SOURCE CLEAN CATCH
[2019-06-16 01:14] LABS: BILIRUBIN URINE NEGATIVE (NEGATIVE); BLOOD URINE NEGATIVE (NEGATIVE); COLOR YELLOW; GLUCOSE URINE NEGATIVE (NEGATIVE); KETONE URINE NEGATIVE (NEGATIVE); LEUKOCYTES URINE NEGATIVE (NEGATIVE); NITRITE URINE NEGATIVE (NEGATIVE); PH URINE 6.5; PROTEIN URINE TRACE mg/dL (NEGATIVE); TURBIDITY URINE CLEAR (CLEAR); UROBILINOGEN URINE NORMAL (NORMAL)
[2019-06-16 01:17] LABS: UR EPITHELIAL CELLS <10 /HPF (<10); URINE BACTERIA NEGATIVE /HPF; URINE RBC <10 /HPF (<10); URINE WBC <10 /HPF (<10)
[2019-06-16] MEDS ORDERED: LR 1,000 ML IV ONE ×2 (01:58→03:39)
--- NOTE | 2019-06-16 02:11 | PROVIDER DOCUMENTATION ---
This chart was entered by Dona Aburto Scribe, acting as scribe for Shravan Vyas MD. HPI-Abdominal Pain/GI Problem - General Chief Complaint: Abdominal Pain Stated Complaint: POST OP -ABD PAIN Time Seen by Provider: 06/16/19 00:10 Source: patient Allergies/Adverse Reactions: Patient Allergies Allergy/AdvReac Type Severity Reaction Status Date / Time No Known Allergies Allergy Verified 06/16/19 00:50 Home Medications: Home Medication List Medication Instructions Recorded Confirmed Last Taken Type Cetirizine HCl [Zyrtec] 10 mg PO DAILY 10/06/15 06/03/19 06/13/19 08:00 History Pravastatin Sodium 20 mg PO QHS 10/06/15 06/03/19 06/13/19 21:00 History Duloxetine HCl [Cymbalta] 60 mg PO DAILY 03/24/17 06/03/19 04/25/19 History Ergocalciferol (Vitamin D2) 50,000 unit PO Q7D 03/24/17 06/03/19 04/25/19 History [Vitamin D] Montelukast Sodium 10 mg PO DAILY 03/24/17 06/03/19 06/13/19 08:00 History Albuterol [Albuterol Neb] 2.5 mg INH Q4H PRN PRN 05/27/17 06/03/19 06/13/19 08:00 History Tiotropium [place] Inhaler 2 puff INH QAM 05/27/17 06/03/19 06/13/19 08:00 History [Spiriva] Olmesartan [Benicar] 40 mg PO DAILY 07/31/18 06/03/19 06/13/19 08:00 History Quetiapine E.r. [Seroquel Xr] 50 mg PO QHS 07/31/18 06/03/19 06/13/19 21:00 History Amlodipine [Norvasc] 10 mg PO DAILY 5 Days #30 tab 08/08/18 06/03/19 06/14/19 04:50 Rx Chlorthalidone 25 mg PO DAILY 09/09/18 06/03/19 06/13/19 08:00 History Clonidine [Catapres] 0.1 mg PO BID 04/21/19 06/03/19 06/13/19 21:00 History Hydralazine HCl 100 mg PO DAILY 04/21/19 06/03/19 06/13/19 08:00 History Methocarbamol [Robaxin] 500 - 1,000 mg PO BID PRN 04/21/19 06/03/19 04/25/19 History Metoprolol Succinate E.r. [Toprol 100 mg PO QAM 04/21/19 06/03/19 06/14/19 04:50 History Xl] Omeprazole 40 mg PO DAILY 04/21/19 06/03/19 06/13/19 08:00 History Acetaminophen [Tylenol] 1,000 mg PO Q6H tab 06/15/19 Unknown Rx Aspirin 325 mg PO DAILY tab 06/15/19 Unknown Rx Docusate Sodium [Colace] 100 mg PO BID cap 06/15/19 Unknown Rx Magnesium Hydroxide [Milk of 30 ml PO Q6H PRN PRN udc 06/15/19 Unknown Rx Magnesia] Meloxicam [Mobic] 15 mg PO DAILY #30 tab 06/15/19 Unknown Rx Oxycodone I.r. [Oxy Ir] 5 mg PO Q3H PRN PRN #40 tab 06/15/19 Unknown Rx Pregabalin [Lyrica] 75 mg PO BID #60 cap 06/15/19 Unknown Rx Tramadol [Ultram] 100 mg PO Q6H #120 tab 06/15/19 Unknown Rx - History of Present Illness-ABD Nature of Presenting Problems: pt is a 64 yowm c/o generalized abd pain and vomiting x2 today. pt had TKR left on friday w/ dr. chase. pt sts he c/o abd pain after sx. pt has noticed scant amt of blood in BM but no diarrhea or fever. no hx abd pain. Abdominal Pain Onset Location: reports: generalized abdomen Pain Radiation: reports: no radiation Quality of Pain: reports: none Severity in ED: reports: mild Onset/Duration: reports: 2 days ago Timing: reports: still present Activities at Onset: reports: none Modifying Factors: improves with: nothing Associated Symptoms: reports: vomiting. denies: fever/chills Last BM: unsure Dark Stools Present?: reports: bright red blood (scant) Rectal Bleeding: reports: blood mixed with stool Rectal Pain: reports: none Review of Systems - Adult - REVIEW OF SYSTEMS - ADULT Constitutional: reports: no symptoms reported. denies: chills, fever, fatique Eyes: reports: no symptoms reported Ears, Nose, Mouth & Throat: reports: no symptoms reported Cardiovascular: reports: no symptoms reported Respiratory: reports: no symptoms reported Gastrointestinal: reports: see HPI, abdominal pain, rectal bleeding, vomiting. denies: hematemesis, constipation, diarrhea Genitourinary: reports: no symptoms reported Musculoskeletal: reports: see HPI, joint pain (TLKR friday). denies: frequent leg cramps, muscle weakness, neck pain Integumentary: reports: no symptoms reported Neurological: reports: no symptoms reported Psychiatric: reports: no symptoms reported Endocrine: reports: no symptoms reported Hematologic/Lymphatic: reports: no symptoms reported Allergic/Immunologic: reports: no symptoms reported All Other Systems: Reviewed and Negative Past History - Adult - PAST MEDICAL HISTORY-ADULT Review of Records: reports: Nursing Assessment Review, Medications Reviewed, Social history reviewed & non-contributory. Major Childhood Illnesses: reports: denies history Cardiovascular: reports: HTN, hyperlipidemia Respiratory: reports: asthma, COPD Gastrointestinal: reports: GERD, hemorrhoids, ulcer Obstetrical/Gynecological: reports: denies history Genitourinary: reports: denies history Musculoskeletal: reports: arthritis, chronic pain, neck/back injury (neck fracture), other (sinus fracture) Neurological: reports: CVA, TIA Psychiatric: reports: bipolar Endocrine/Immune: reports: denies history Other Conditions: reports: denies history - PRIOR SURGERIES/PROCEDURES Surgical/Procedure History: reports: recent surgery, joint replacement, other (hemmoroidectomy) - IMMUNIZATION STATUS Childhood Immunizations: See Nurse Assessment Flu Vaccine: See Nurse Assessment - FAMILY HISTORY Family History: reviewed, not pertinent - SOCIAL HISTORY Smoking: cigarettes, greater than 1 pack/day Provider spent 3-5 mins advising pt. on dangers of tobacco.: Discussed manners to quit use, and f/u contacts for add'l counseling. Substance Use: none/never Physical Exam-General - PHYSICAL EXAM-ADULT Initial Vital Signs Reviewed: Yes - CONSTITUTIONAL General Appearance: appears well, alert, no apparent distress. negative: lethargic, slow to respond, obtunded - EYES Eyes: PERRL/EOMI, pink conjunctivae - HEAD, EARS, NOSE, MOUTH & THROAT HENMT: normocephalic/atraumatic, moist mucous membranes, normal ENT inspection - NECK Neck: non-tender, full range of motion, supple, normal inspection - RESPIRATORY Respiratory: chest non-tender, lungs clear, normal breath sounds - CARDIOVASCULAR Cardiovascular: normal peripheral pulses, regular rate, rhythm - GASTROINTESTINAL (ABDOMEN) Abdominal Exam: normal bowel sounds, soft, no organomegaly, no pulsatile mass, tenderness (to palp generalized abd). negative: non tender, distended, guarding, rigid - LYMPHATIC Lymphatic: no adenopathy - MUSCULOSKELETAL Back Exam: normal inspection Extremity: normal range of motion, non-tender, other (LTKR sx friday). negative: normal inspection, deformity, erythema, inflammation - SKIN Integumentary: normal color, normal turgor, warm/dry - NEUROLOGIC Neurologic: grossly normal, no motor/sensory deficits - PSYCHIATRIC Psych/Mental Status: normal mood/affect, normal thought content, normal thought process, oriented x 3 Progress - PLAN OF CARE/RESULTS Progress/Plan/Lab Results: Vital Signs - 8 hr 06/15/19 21:57 Temperature 98.0 F Pulse Rate 67 Respiratory Rate 15 O2 Sat by Pulse Oximetry 99 Laboratory Results - last 24 hr 06/15/19 06/15/19 22:34 22:34 WBC 16.70 H RBC 5.15 Hgb 14.9 D Hct 44.4 D MCV 86.2 MCH 28.9 MCHC 33.6 RDW Std Deviation 13.3 Plt Count 248 MPV 11.5 H Immature Gran % (Auto) 0.2 Neut % (Auto) 87.2 H Lymph % (Auto) 5.3 L Crook % (Auto) 7.2 Eos % (Auto) 0.0 Baso % (Auto) 0.1 Immature Gran # (Auto) 0.04 Neut # (Auto) 14.57 H Lymph # (Auto) 0.88 L Crook # (Auto) 1.20 H Eos # (Auto) 0.00 Baso # (Auto) 0.01 Sodium 138 Potassium 4.3 Chloride 97 L Carbon Dioxide 26 Anion Gap 15 BUN 21 Creatinine 1.4 H Estimated GFR/1.73 m2 51 BUN/Creatinine Ratio 15 Glucose 151 H Calculated Osmolality 282 Calcium 9.8 Total Bilirubin 0.48 AST 31 ALT 14 Alkaline Phosphatase 63 Total Protein 7.8 Albumin 4.6 Globulin 3.2 Albumin/Globulin Ratio 1.4 Amylase 1081 H Lipase 1305 H Orders Category Date Time Status Saline Loc DIRECTED Care 06/15/19 22:24 Active NPO Diet 06/15/19 22:24 Active AMYLASE [CHEM] Stat Lab 06/15/19 22:34 Completed CBC WITH ELECTRONIC DIFF [HEME] Stat Lab 06/15/19 22:34 Completed COMPREHENSIVE METABOLIC PANEL [CHEM] Stat Lab 06/15/19 22:34 Completed LIPASE [CHEM] Stat Lab 06/15/19 22:34 Completed URINALYSIS W/POSS RFLX CULT [URINALYSIS] Stat Lab 06/15/19 22:[address] shows SBO, spoke with Dr. Doe, he will consult and wants pt admitted to hospitalist, spoke with Dr. Green and he accepted the admission Result Diagrams: 06/15/19 22:34 06/15/19 22:34 Departure - Departure Date of Disposition Decision: 06/16/19 Time of Disposition Decision: 02:00 DIAGNOSIS: SBO (small bowel obstruction) Disposition: ADMITTED INPATIENT 09 Certified Medical Emergency: Emergent Condition: Stable Referrals and Follow-Ups: Sally Baires CRNP [Primary Care Provider] - - Critical Care Note This patient required my direct & personal management of CC.: No Attestation - Physician/ DAWOOD Attestation Patient care was provided by Advanced Practice Provider:: No The physician spent face to face time with patient:: Yes Advanced Practice Provider documentation review:: Supervising physician onsite and consulted in the evaluation and care of this patient. The physician did have a face to face encounter with the patient. This chart was documented by the indicated scribe, (Dona Aburto Scribe) and accurately reflects the services I performed and decisions made by me, Shravan Vyas MD, as attested by the provider's signature.
[2019-06-16 03:03] LABS: HEMOGLOBIN A1C 5.5 % (4.8-6.0)
[2019-06-16] MEDS ORDERED: ZOFRAN IV PRN (03:39)
[2019-06-16] MEDS: PROTONIX IV SCH (04:18)
[2019-06-16] MEDS: SODIUM CHLORIDE 0.9% INJ SCH (04:18)
[2019-06-16] MEDS: MORPHINE IV PRN ×7 (04:18→21:45)
[2019-06-16] MEDS: LOVENOX SUBQ SCH (04:19)
--- NOTE | 2019-06-16 05:34 | HISTORY AND PHYSICAL ---
CHIEF COMPLAINT: Abdominal pain. HPI: Mr. Joseph is a 64-year-old male who had a left total knee replacement Friday with Dr. Restrepo. He went home yesterday at around 1 p.m. States that he started having abdominal pain, has not had a bowel movement since Friday, and had vomiting x4 episodes today. His abdomen was noted to be very distended. CT scan showed a small bowel obstruction. Amylase and lipase are elevated with a lipase of 1305, so he also appears to have acute pancreatitis. He will be admitted for further evaluation and treatment. PAST MEDICAL HISTORY: 1. Hypertension. 2. History of CVA with residual visual defect. 3. History of alcohol dependence. Apparently has not drank in close to a year. 4. COPD. 5. Hyperlipidemia. 6. Nicotine dependence. PAST SURGICAL HISTORY: 1. Left hip and left ulnar nerve repair. 2. Left total knee replacement. SOCIAL HISTORY: Smokes half a pack a day. States that he has not had any alcohol for around 1 year. No illicit drug use. FAMILY HISTORY: Positive for hypertension. ALLERGIES: NO KNOWN DRUG ALLERGIES. HOME MEDICATIONS: 1. Tylenol 1000 mg p.o. q.6h. 2. Aspirin 325 p.o. daily. 3. Zyrtec 10 mg p.o. daily. 4. Chlorthalidone 25 mg p.o. daily. 5. Colace 100 mg p.o. b.i.d. 6. Cymbalta 60 mg p.o. daily. 7. Vitamin D2, 50,000 units p.o. q.7 days. 8. Milk of magnesia 30 mL p.o. q.6h. p.r.n. 9. Mobic 15 mg p.o. daily. 10. Robaxin 500-1000 mg p.o. b.i.d. 11. Singulair 1000 mg p.o. daily. 12. Omeprazole 40 mg p.o. daily. 13. OxyIR 5 mg p.o. q.3 p.r.n. 14. Pravastatin 20 mg p.o. at bedtime. 15. Lyrica 75 mg p.o. daily. 16. Seroquel XR 50 mg p.o. at bedtime. 17. Ultram 100 mg p.o. q.6h. 18. Albuterol 2.5 mg q.4 p.r.n. 19. Norvasc 10 mg p.o. daily. 20. Catapres 0.1 mg p.o. b.i.d. 21. Hydralazine 100 mg p.o. daily. 22. Metoprolol 100 mg p.o. q.a.m. 23. Benicar 40 mg p.o. daily. 24. Spiriva 2 puff inhalation q.a.m. REVIEW OF SYSTEMS: A 14-point review of systems is conducted with the patient. He states that he has been having a lot of belching and heartburn on top of the abdominal pain. All other systems reviewed and found to be negative. Other pertinent positives are listed above in the HPI. PHYSICAL EXAMINATION: VITAL SIGNS: Temperature 98 degrees, pulse 67, respirations 15, oxygen 99% on room air. GENERAL: A 64-year-old male lying in the ER stretcher, alert and oriented x3. Is in no acute distress. NEUROLOGICAL: Awake, alert and oriented x3. No focal motor deficits. Otherwise nonfocal examination. HEENT: Head is atraumatic, normocephalic. Pupils equal, round, react to light. Extraocular eye movements intact. Sclera anicteric. Conjunctiva pink. Oral mucosa is dry. NECK: Supple. No JVD. No thyromegaly. Trachea is midline. No cervical lymphadenopathy. CARDIAC: S1, S2 appreciated. No murmurs, gallops, rubs. LUNGS: Clear to auscultation bilaterally. No rhonchi, wheezes, rales. Symmetric rise and fall respirations. ABDOMEN: Somewhat taut and distended. Diffusely tender to palpation. Bowel sounds present. Hypoactive. No pulsatile mass. No organomegaly. EXTREMITIES: No clubbing, cyanosis or edema. 1+ pedal pulses. GENITOURINARY: No bladder distention. Patient voids. Otherwise deferred. DIAGNOSTIC DATA: CT of the abdomen and pelvis official report is pending, however, it does show a small bowel obstruction. LABORATORY DATA: WBC 16.70, hemoglobin 14.9, hematocrit 44.4, platelet count 248. Sodium 138, potassium 4.3, chloride 97, carbon dioxide 26, BUN 21, creatinine 1.4, glucose 151. Urine unremarkable. ASSESSMENT AND PLAN: 1. Small bowel obstruction. 2. Acute pancreatitis. 3. Hypertension. 4. Hyperlipidemia. 5. Chronic obstructive pulmonary disease. 6. Acute kidney injury. PLAN: Admit patient to the medical floor. N.p.o. Will place an NG tube to help decompress the abdomen. Check hemoglobin A1c. A bolus of lactated Ringer's was given in the emergency room. Will continue this 125 mg an hour. Will continue all of his antihypertensives except for chlorthalidone. He will be n.p.o. except for medication. Check hemoglobin A1c. Consult Dr. Santiago related to small bowel obstruction. Consult Dr. Restrepo for rehab of the left knee. Will give morphine as needed for pain, Zofran as needed for nausea. Further recommendations based on patient's clinical course. Dictated by TAMARA Bowen for Reanna Green MD cc: TAMARA Bowen MD Independent exam and assessment performed at bedside with ELECTRICIAN SUBSTATION. Will hold Chlorthalidone and Benicar in light of pt's depleted intravascular volume. Etiology of pancreatitis could be due to medications like ARB, Thiazide, Statin or SSRI in pt's home medication list. Consider RUQ in a.m if still symptomatic to assess biliary system although SBO could limit study and could be actually as a result of pancreatitis (meaning could actually an ileus). MTDD
--- NOTE | 2019-06-16 06:57 | Diag Imaging Result Doc PS360 ---
CHEST-PORTABLE - 06/16/2019 INDICATION: CHECK NG TUBE PLACEMENT COMPARISON: 09/09/2018 FINDINGS: There is a nasogastric tube with the tip entering the stomach. This should be advanced by couple of centimeters. There are several gas distended loops of bowel in the upper abdomen, only partially evaluated. There are diffuse bilateral interstitial infiltrates mainly in the lung bases. There is cardiomegaly and pulmonary vascular congestion. No pleural effusions. IMPRESSION: Recommend advancing nasogastric tube a few centimeters for optimal placement. Cardiomegaly and pulmonary edema. Electronically signed by Rai Garza 06/16/2019 6:55 AM
--- NOTE | 2019-06-16 07:35 | Diag Imaging Result Doc PS360 ---
EXAM: CT ABD/PELVIS W/IV CONT ONLY 06/16/2019 HISTORY: colitis TECHNIQUE: This exam was performed using automated exposure control, adjustment of mA or kV according to patient size, and/or use of iterative reconstruction technique. COMMENT: There is some ill-defined opacity in the posterior costophrenic sulcus of the right lower lobe and in the inferior lingula and left lower lobe. There is a tiny amount of fluid in the left costophrenic sulcus. This appears worse than on the previous examination of 09/10/2018 and may be related to atelectasis. The stomach is distended with fluid and some solid contents and gas. This was not the case previously. There are atherosclerotic calcifications in the aorta. The aorta is not distended. The mesenteric and renal arteries are patent. There is dilatation of the proximal small bowel including the duodenum. There is some stool in the colon. The appendix is normal in appearance. The distal ileum is not distended. There is an apparent transitional zone in the pelvis on image 147 although this is somewhat gradual in appearance. There is diverticulosis in the colon particularly in the sigmoid colon. There is a small amount of ascites in the right subphrenic hepatic and paracolic gutter regions. There are no gallstones. There is mild dilatation of the common bile duct which measures over 8 mm. The pancreatic duct is distended. No appreciable mass is present. The appearance is similar to the previous study of 09/10/2018. There is some intrahepatic biliary dilatation. Otherwise the liver is unremarkable in appearance. The spleen is not enlarged. The adrenal glands are not enlarged. The kidneys are without evidence of hydronephrosis or mass. There is some cortical scarring in the mid left kidney and some small cortical cysts are present. There is no evidence of significant adenopathy. Pelvis: In addition to the above findings, there is a small amount of free fluid. The urinary bladder is not distended. There is a left hip prosthesis. There are spondylotic changes in the lumbar spine and bilateral spondylolysis is present at L5. IMPRESSION: No evidence of colitis. Partial small bowel obstruction. Chronic biliary dilatation and minimal ascites. Electronically signed by Anthony Xavier 06/16/2019 7:32 AM
[2019-06-16] MEDS: ALBUTEROL NEB INH PRN ×4 (07:39→19:45)
[2019-06-16] MEDS: SPIRIVA INH SCH (07:39)
[2019-06-16 07:40] LABS: CHOLESTEROL 141 mg/dL (0-200); HDL 68 mg/dL (35-55); LDL 57 mg/dL; TRIGLYCERIDES 79 mg/dL (39-160); VLDL 16 mg/dL
[2019-06-16] MEDS: CATAPRES PO SCH ×2 (09:17→21:46)
[2019-06-16] MEDS: TOPROL XL PO SCH (09:17)
[2019-06-16] MEDS: BENICAR PO SCH (09:17)
[2019-06-16] MEDS: NORVASC PO SCH (09:17)
[2019-06-16] MEDS: APRESOLINE PO SCH (09:18)
[2019-06-16 09:54] LABS: AGAP 13; ALB/GLOB RATIO 1.8; ALBUMIN 3.6 g/dL (3.5-5.0); ALKALINE PHOSPHATASE 51 U/L (32-122); BUN 20 mg/dL (8-22); CALCIUM 8.9 mg/dL (8.8-10.2); CHLORIDE 96 mmol/L (98-107); COSMO 277; ESTIMATED GFR > 60; GLUCOSE 112 mg/dL (70-104); GOT 16 U/L (10-34); GPT 9 U/L (10-44); LIPASE 183 U/L (13-60); MAGNESIUM 1.7 mg/dL (1.5-2.7); PHOSPHORUS 3.5 mg/dL (2.7-4.5); SODIUM 137 mmol/L (136-145); TCO2 28 mmol/L (25-35); TOTAL BILIRUBIN 0.41 mg/dL (0.20-1.00); TOTAL PROTEIN 5.6 g/dL (6.3-8.3)
[2019-06-16 09:59] LABS: BASO# 0.01 X1000 (0.0-0.2); BASO% 0.1 % (0.0-0.8); HEMATOCRIT 37.2 % (42.0-52.0); HEMOGLOBIN 12.3 g/dL (14.0-18.0); IMM GRAN# 0.02 X1000 (0.0-0.04); IMM GRAN% 0.2 % (0.0-0.5); LYMPH# 1.04 X1000 (1.2-3.4); LYMPH% 9.9 % (20.5-51.1); MCHC 33.1 g/dL (33-37); MCV 87.7 FL (81-99); MONO# 0.96 X1000 (0.11-0.59); MONO% 9.2 % (1.7-9.3); MPV 12.4 FL (7.4-10.4); NEUT# 8.44 X1000 (1.4-6.5); NEUT% 80.6 % (42.2-75.2); PLT 210 X1000 (130-400); RBC 4.24 XMIL (4.7-6.1); RDW 13.2 % (11.5-14.5); WBC 10.47 X1000 (4.8-10.8)
--- NOTE | 2019-06-16 10:12 | GENERAL SURGERY CONSULTATION ---
DATE: 06/16/2019 REQUESTING PHYSICIAN: Hospitalist. REASON FOR CONSULTATION: Consult is concerning bowel obstruction. HISTORY OF PRESENT ILLNESS: A 64-year-old gentleman who had a left total knee replacement on Friday by Dr. Restrepo, who was actually discharged yesterday. He came to the emergency department after having abdominal pain and no bowel movement since Friday. He has had vomiting episodes x4 a day. He was seen in the emergency department, had a CT scan that showed bowel obstruction versus ileus. It was also noted that his amylase and lipase were elevated. He has been admitted for further evaluation. He had an NG tube placed and has had at least 700 out of it since placement. I was asked to weigh an opinion. The patient is feeling a little bit better now. PAST MEDICAL HISTORY: Includes a history of hypertension, history of CVA, history of alcohol dependence, COPD, hyperlipidemia, and nicotine dependence. PAST SURGICAL HISTORY: 1. Includes left hip and left nerve repair. 2. Recent left total knee. SOCIAL HISTORY: Current smoker but has not had alcohol in a year. FAMILY HISTORY: Reviewed with the patient and noncontributory to this case. ALLERGIES: None. HOME MEDICATIONS: Full list reviewed. REVIEW OF SYSTEMS: A full 14 systems were reviewed and are negative except as specified in the HPI. PHYSICAL EXAMINATION: Vital Signs: The patient is currently afebrile. His blood pressure is elevated at 219/88 but his pulse is regular. General Examination: No acute distress. HEENT: Normocephalic, atraumatic. Pupils equal, round, react to light. Mucous membranes moist. Oropharynx benign. Neck: Supple. Trachea midline. Cardiovascular: Regular rate and rhythm. Lungs: Grossly clear. Abdomen: Soft. Mildly distended. Hypoactive bowel sounds. Some mild discomfort but no peritoneal signs. Extremities: Moves all extremities. Neurologic: Grossly intact. Skin: No signs of jaundice. Vascular: All extremities perfused. LABORATORY: White blood cell count 16, hematocrit is normal, platelet count is normal. Amylase and lipase are both over 1000. CT scan independently reviewed and radiology report reviewed, and noted above. ASSESSMENT AND PLAN: A 64-year-old gentleman with a bowel obstruction and possible acute pancreatitis. 1. Multiple medical comorbidities at this time including hypertension. His blood pressure is elevated over 200. We will defer to the hospitalist. They do have him on his home medications. 2. Bowel obstruction. At this time, we will continue nonoperative management. I think it is more of an ileus-like picture. He has hypoactive bowel sounds. 3. Pancreatitis. At this time, we will keep him nothing per oral and monitor, and trend his labs. cc: Gurmeet Santiago MD
[2019-06-16] MEDS: D5 NS 1,000 ML IV SCH (11:25)
[2019-06-16] MEDS: ZYVOX 600 MG/D5W 600 MG/300 ML IVPB IV SCH ×2 (11:25→21:46)
[2019-06-16] MEDS ORDERED: CHLORASEPTIC SPRAY MT PRN (12:33)
--- NOTE | 2019-06-16 14:27 | Diag Imaging Result Doc PS360 ---
EXAM: US ABDOMEN-COMPLETE 06/16/2019 HISTORY: CBD and pancreatic dilatation TECHNIQUE: Abdominal ultrasound COMMENT: There is a right pleural effusion. There is some fluid in Morison's pouch. The liver is unremarkable in appearance. The gallbladder is clear and nontender. There is no evidence of biliary dilatation the common bile duct measuring less than 4 mm. There is antegrade flow in the portal vein. The kidneys are without evidence of hydronephrosis or mass. The spleen is not enlarged. The pancreas is obscured. The visualized portions of the aorta and inferior vena cava are within normal limits. IMPRESSION: Right pleural effusion and minimal ascites. Electronically signed by Anthony Xavier 06/16/2019 2:25 PM
[2019-06-16] MEDS: MAXIPIME 2 GM in NS 100 ML IV SCH (14:34)
--- NOTE | 2019-06-16 15:02 | Diag Imaging Result Doc PS360 ---
EXAM: MRI MRCP (ABD W/O CONTRAST) 06/16/2019 HISTORY: dilated CBD and pancreatic duct TECHNIQUE: Axial T2, water 3-D, in and out of phase T1, coronal T2 and water 3-D and radial MRCP MIPS. COMMENT: The distal pancreatic duct is over 6 mm in diameter as it was on the CT of 06/16/2019. The common hepatic duct measures almost 9 mm. There are no definite filling defects or obstructing lesions. There are multiple distended small bowel loops. The left ventricle appears to be hypertrophied and distended. There is an apparent cyst in the left kidney. The gallbladder is unremarkable. Neither of the distal pancreatic or common bile ducts are well demonstrated. There is a hiatal hernia. IMPRESSION: Dilatation of the pancreatic and common hepatic and common bile ducts of uncertain etiology. Electronically signed by Anthony Xavier 06/16/2019 2:59 PM
--- NOTE | 2019-06-16 17:36 | ORTHOPAEDICS CONSULTATION ---
DATE: 06/16/2019 CHIEF COMPLAINT: Abdominal pain, status post left total knee replacement. HISTORY OF PRESENT ILLNESS: Mr. Joseph is a 64-year-old male who had a left total knee replacement this past Friday with Dr. Restrepo. He went home Friday around 1 p.m. Apparently once he arrived home, he started having abdominal pain and had not had a bowel movement since the Friday prior to surgery. He did have 4 episodes of vomiting. He felt like his abdomen was getting distended. He presented to the [facility] Emergency Room, where a CT showed a small- bowel obstruction. His amylase and lipase were also elevated. He was admitted at that time for further evaluation and treatment. Orthopedics was consulted for management of the left knee rehab. PAST MEDICAL HISTORY: 1. Primary essential hypertension. 2. CVA with residual visual defect. 3. History of alcohol dependence. 4. COPD. 5. Hyperlipidemia. 6. Nicotine dependence. PAST SURGICAL HISTORY: 1. Left total knee arthroplasty on 06/14/[address] Restrepo. 2. Left hip. 3. Left ulnar nerve repair. SOCIAL HISTORY: He does smoke half a pack a day. He has not had any alcohol for almost 1 year. No illicit drug use. FAMILY HISTORY: Noncontributory. ALLERGIES: No known drug allergies. HOME MEDICATIONS: Refer to chart. REVIEW OF SYSTEMS: A 10-point review of systems was conducted and negative except as was mentioned above in the HPI. PHYSICAL EXAMINATION: Vital Signs: Current temperature is 97.8 degrees, pulse is 64, respirations 16, blood pressure is 142/60, and he is 100% on room air. General: This is a 64- year-old male, lying comfortably in the bed. He is in no acute distress. He does complain of some throat discomfort related to the NG tube. Neurologic: He is alert and oriented x 3. No focal deficits. HEENT: Head is atraumatic, normocephalic. Pupils equal, round and reactive to light. Cardiovascular: Regular rate and rhythm. Pulmonary: Breathing is even and unlabored. Abdomen: Soft but slightly distended. He does have a NG tube to suction presently. Extremities: The left lower extremity does have a midline incision on the knee. There is no erythema or drainage. It is well approximated. He has mild overall edema. He has good sensation in the lower extremity and is able to dorsiflex and plantar flex the foot. LABORATORY DATA: White count is 10.47, hemoglobin and hematocrit 12.3 and 37.2, platelet count is 210,000. BUN and creatinine are 20 and 1. His amylase and lipase are trending down. It is 183 today, where his amylase and lipase were 1081 and 1305 yesterday. ASSESSMENT: Status post left total knee arthroplasty. PLAN: General Surgery has already seen Mr. Joseph. They believe this is just an ileus and some acute pancreatitis. He will be treated conservatively for now. He is going to continue his NG tube to suction for now and slowly advance his diet. We will order physical therapy and continue to rehab the left knee as tolerated. Once he is discharged from the hospital, he will need to resume his home health physical therapy for the knee. He will also follow up with Dr. Restrepo in 12- 14 days postoperatively. If you has any questions or concerns for us, please give us a call. Thank you for the consultation. Dictated by TAMARA Espinosa for Hira Restrepo MD cc: TAMARA Espinosa MD
[2019-06-17] MEDS: MORPHINE IV PRN ×8 (00:46→21:58)
[2019-06-17] MEDS: MAXIPIME 2 GM in NS 100 ML IV SCH ×2 (02:28→16:01)
[2019-06-17] MEDS: SODIUM CHLORIDE 0.9% INJ SCH (03:56)
[2019-06-17] MEDS: LOVENOX SUBQ SCH (03:56)
[2019-06-17] MEDS: PROTONIX IV SCH (03:56)
[2019-06-17 06:59] LABS: BASO# 0.01 X1000 (0.0-0.2); BASO% 0.1 % (0.0-0.8); EOS# 0.03 X1000 (0.0-0.7); EOS% 0.4 % (0.0-10.0); HEMOGLOBIN 11.7 g/dL (14.0-18.0); LYMPH# 1.36 X1000 (1.2-3.4); LYMPH% 20.4 % (20.5-51.1); MCH 28.7 PG (27-31); MCHC 32.5 g/dL (33-37); MCV 88.2 FL (81-99); MONO# 0.75 X1000 (0.11-0.59); MONO% 11.2 % (1.7-9.3); MPV 11.6 FL (7.4-10.4); NEUT# 4.53 X1000 (1.4-6.5); NEUT% 67.9 % (42.2-75.2); PLT 196 X1000 (130-400); RBC 4.08 XMIL (4.7-6.1); RDW 13.4 % (11.5-14.5); WBC 6.68 X1000 (4.8-10.8)
[2019-06-17 07:24] LABS: AGAP 13; ALBUMIN 3.3 g/dL (3.5-5.0); BUN 19 mg/dL (8-22); CALCIUM 8.5 mg/dL (8.8-10.2); CHLORIDE 98 mmol/L (98-107); COSMO 279; CREATININE 1.2 mg/dL (0.7-1.2); ESTIMATED GFR > 60; GLUCOSE 125 mg/dL (70-104); LIPASE 13 U/L (13-60); PHOSPHORUS 2.9 mg/dL (2.7-4.5); POTASSIUM 3.3 mmol/L (3.5-5.1); SODIUM 138 mmol/L (136-145); TCO2 27 mmol/L (25-35)
[2019-06-17] MEDS: SPIRIVA INH SCH (07:30)
[2019-06-17] MEDS: ALBUTEROL NEB INH PRN ×3 (07:30→19:26)
[2019-06-17] MEDS: D5 NS 1,000 ML IV SCH ×3 (08:03→18:29)
--- NOTE | 2019-06-17 10:46 | Diag Imaging Result Doc PS360 ---
EXAM: FLAT/UPRIGHT ABD/1 VIEW CHEST HISTORY: pneumonia/obstruction TECHNIQUE: Flat and upright with chest, three views COMPARISON: 05/16/2019 FINDINGS: The lungs are well expanded. No cardiomegaly. No pneumonia. Nasogastric tube enters the upper stomach. No free air beneath the diaphragm. There are air distended loops of small bowel measuring up to 5 cm in diameter. Air-fluid levels are present. No organomegaly. IMPRESSION: Small bowel obstruction. The nasogastric tube could be advanced 5 to 10 cm. Electronically signed by Duarte Lo 06/17/2019 10:44 AM
[2019-06-17] MEDS: ZYVOX 600 MG/D5W 600 MG/300 ML IVPB IV SCH (10:56)
[2019-06-17] MEDS: APRESOLINE PO SCH (11:02)
[2019-06-17] MEDS: BENICAR PO SCH (11:02)
[2019-06-17] MEDS: CATAPRES PO SCH ×2 (11:03→21:58)
[2019-06-17] MEDS: NORVASC PO SCH (11:03)
[2019-06-17] MEDS: TOPROL XL PO SCH (11:03)
--- NOTE | 2019-06-17 11:03 | ORTHOPAEDICS PROGRESS NOTE ---
DATE: 06/17/2019 SUBJECTIVE: No acute events overnight. Patient is status post left total knee arthroplasty with Dr. Restrepo on 06/14/2019. He subsequently developed an ileus and questionable small-bowel obstruction and was readmitted. The patient denies any nausea. He has not had any other episodes of vomiting. He states he is passing gas, however, has not had a bowel movement. He has been NPO except ice chips with NG tube in place. General Surgery is following. OBJECTIVE: White count 7, hematocrit 36.Extremities: Examination of left lower extremity shows surgical incision being clean, dry, and intact. Prineo dressing in place. No erythema, fluctuance, or sign of infection. He has mild joint effusion in the knee. He has pain with range of motion of the knee through short arc motion. Calf and thigh are soft and compressible. Motor intact EHL, tibialis anterior, gastrocsoleus complex. Sensation intact to light touch L3-S1. Dorsalis pedis pulse palpable. ASSESSMENT: A 64-year-old male status post left total knee arthroplasty. Postoperative day 3. PLAN: 1. Patient will be weightbearing as tolerated left lower extremity. Physical therapy to work with him on gait training and range of motion exercises. 2. Ice to left lower extremity as needed for pain. 3. Lovenox DVT prophylaxis. 4. Appreciate General Surgery and hospitalist recommendations in regards to his medical management and ileus. 5. Disposition per primary team. NG tube is currently in place. Patient has yet to have a bowel movement. We will follow along with the general surgeons as far as recommendations go. Patient can continue physical therapy for the knee. He will follow up with Dr. Restrepo at his previously scheduled appointment.
--- NOTE | 2019-06-17 11:08 | GENERAL SURGERY PROGRESS NOTE ---
DATE: 06/17/2019 SUBJECTIVE: Feels okay. He is having bowel function. No pain. OBJECTIVE: Abdomen: Soft, nontender. Cardiovascular: Normal rate. Vital Signs: There are no fevers documented. LABORATORY DATA: White count 6, hematocrit 36. Creatinine is 1.2. His lipase is now normal at 13. ASSESSMENT AND PLAN: This is a 64-year-old gentleman status post left knee total arthroplasty, who developed ileus and pancreatitis-type picture. Nasogastric tube is bilious. Output has not been significant. They recorded 900. Will place it to gravity today as he has had return of bowel function and overall seems to be better, and possibly remove tomorrow. cc: Mukund Love MD
[2019-06-17] MEDS ORDERED: KLOR-CON PO ONE (16:00)
[2019-06-17] MEDS ORDERED: MAGNESIUM SULFATE 2 GM/S.W.I. 2 GM/50 ML IVPB IV ONE (16:00)
--- NOTE | 2019-06-17 17:28 | PROGRESS NOTE ---
DATE: 06/17/2019 INTERVAL HISTORY: No acute events overnight. SUBJECTIVE: Mr. Moffett NG tube has been clamped. He is taking medicines by mouth. He states he is feeling much better. We discussed about small bowel obstruction pathophysiology. I answered all of his questions. Currently. VITAL SIGNS: Currently, temperature 99.4 degrees, pulse 86, respiratory rate 20, blood pressure 158/68, saturating 96% on room air. OBJECTIVE: He is not in acute distress. Oral cavity is moist. Air entry bilaterally equal. No wheeze, rhonchi, or crackles. S1, S2 normal. No murmur, rub, or gallop.Abdomen: Distended, soft, nontender. Only hypoactive bowel sounds. No lower extremity edema. He has an NG tube. He is alert and oriented x3. LABORATORY DATA: Suggestive of no leukocytosis. Acceptable range of hemoglobin and platelet count. Hypokalemia, being repleted. Normal kidney function. MICROBIOLOGY: Sputum is growing gram-negative ramila. ASSESSMENT AND PLAN: 1. Small bowel obstruction without prior history of previous abdominal surgery. It could be just ileus. CT scan did not detect any obvious mass. He has been passing gas. Continue NG tube and diet management as per surgical team. 2. Acute pancreatitis. Patient quit alcohol about 2 years ago. He denies a known history of gallbladder disease. He had chronic biliary dilatation and minimal ascites. Unsure if the lipase, amylase, were nonspecific elevation because of his small bowel obstruction. I will continue to monitor his progress, and I will continue to monitor him with intravenous fluid resuscitation. He is not listed to be taking any medication obviously known to cause pancreatitis, except chlorthalidone which I will hold. 3. Chronic obstructive pulmonary disease and cough on presentation. I will continue him on cefepime until the final sputum culture results comes back. I will stop the linezolid. He does have evidence of posterior costophrenic right lower lobe opacity which could be pneumonia. 4. Recent left total knee arthroplasty. Continue enoxaparin for DVT prophylaxis. 5. Disposition: Monitor patient inside the hospital as we await resolution of small bowel obstruction. Plan of care discussed with him. His questions have been answered. cc: Nicholas Darden MD
[2019-06-17] MEDS: POTASSIUM CHLORIDE 20 MEQ/SWI 20 MEQ/100 ML IVPB IV SCH ×2 (18:26→23:28)
[2019-06-18] MEDS: MORPHINE IV PRN ×9 (01:00→20:38)
[2019-06-18] MEDS: PROTONIX IV SCH (03:14)
[2019-06-18] MEDS: MAXIPIME 2 GM in NS 100 ML IV SCH ×2 (03:15→14:34)
[2019-06-18] MEDS: LOVENOX SUBQ SCH (03:15)
[2019-06-18] MEDS: SODIUM CHLORIDE 0.9% INJ SCH (03:15)
[2019-06-18] MEDS: D5 NS 1,000 ML IV SCH ×2 (05:34→10:41)
[2019-06-18 06:55] LABS: BASO# 0.02 X1000 (0.0-0.2); BASO% 0.4 % (0.0-0.8); EOS# 0.11 X1000 (0.0-0.7); HEMATOCRIT 36.1 % (42.0-52.0); HEMOGLOBIN 11.8 g/dL (14.0-18.0); LYMPH# 0.98 X1000 (1.2-3.4); LYMPH% 17.9 % (20.5-51.1); MCH 29.3 PG (27-31); MCHC 32.7 g/dL (33-37); MCV 89.6 FL (81-99); MONO# 0.67 X1000 (0.11-0.59); MONO% 12.2 % (1.7-9.3); MPV 11.4 FL (7.4-10.4); NEUT# 3.69 X1000 (1.4-6.5); NEUT% 67.5 % (42.2-75.2); PLT 195 X1000 (130-400); RBC 4.03 XMIL (4.7-6.1); RDW 13.2 % (11.5-14.5); WBC 5.47 X1000 (4.8-10.8)
[2019-06-18 07:04] LABS: AGAP 15; ALBUMIN 3.3 g/dL (3.5-5.0); BUN 16 mg/dL (8-22); CALCIUM 8.5 mg/dL (8.8-10.2); CHLORIDE 100 mmol/L (98-107); COSMO 279; CREATININE 0.9 mg/dL (0.7-1.2); ESTIMATED GFR > 60; GLUCOSE 104 mg/dL (70-104); PHOSPHORUS 2.5 mg/dL (2.7-4.5); POTASSIUM 4.1 mmol/L (3.5-5.1); SODIUM 139 mmol/L (136-145); TCO2 24 mmol/L (25-35)
[2019-06-18] MEDS: SPIRIVA INH SCH (07:47)
[2019-06-18 08:30] LABS: BANDS 6 % (0-1); LARGE PLATELETS 2+; LYMPHS 28 % (21-51); NRBC 1 % (0-0); SEGS 62 % (42-75)
--- NOTE | 2019-06-18 09:01 | ORTHOPAEDICS PROGRESS NOTE ---
DATE: 06/18/2019 SUBJECTIVE: The patient is doing much better. His NG tube was discontinued last night. He is passing a lot of gas but has not had a bowel movement as of yet. He denies any nausea or vomiting. He still has remained n.p.o. He reports minimal pain in his knee. He is doing well with his knee. Therapy did not work with him yesterday. OBJECTIVE: LABORATORY DATA: White count 5.5, hematocrit 36.Extremities: Examination of the left lower extremity shows surgical incision to be clean, dry, intact with Prineo dressing in place. He has a mild effusion in the knee. He is able to do straight leg raise. Thigh and calf soft and compressible. Neurovascularly intact. ASSESSMENT: A 64-year-old male status post left total knee arthroplasty with Dr. Restrepo. Postoperative day 4. PLAN: 1. The patient to mobilize with physical therapy and work on standard postoperative total knee arthroplasty protocol. He can remain weightbearing as tolerated to the left lower extremity. 2. I told patient to put a pillow or a stack of blankets under his heel several times a day to work on fully extending the knee. 3. Lovenox for DVT prophylaxis. 4. Ice the left knee as needed for pain. 5. Disposition per primary team. Okay to be discharged from an orthopedic standpoint as soon as his bowel function returns. He will follow up with Dr. Restrepo at his previous scheduled appointment.
[2019-06-18] MEDS: NORVASC PO SCH (10:26)
[2019-06-18] MEDS: TOPROL XL PO SCH (10:26)
[2019-06-18] MEDS: CATAPRES PO SCH ×2 (10:27→20:38)
[2019-06-18] MEDS: APRESOLINE PO SCH (10:27)
[2019-06-18] MEDS: BENICAR PO SCH (10:27)
--- NOTE | 2019-06-18 12:09 | GENERAL SURGERY PROGRESS NOTE ---
DATE: 06/18/2019 SUBJECTIVE: He tolerated his NG tube clamped yesterday and is removed. He tolerated this well. No fevers. OBJECTIVE: Vital Signs: Pulse 73, blood pressure 157/68. General: He is alert. Cardiovascular: Normal rate. Pulmonary: No increased work of breathing. Abdomen: His abdomen is soft, nontender, nondistended. LABS: White count 5, hematocrit is 36 and creatinine 0.9. ASSESSMENT AND PLAN: A 64-year-old gentleman with ileus, status post left total knee, as well as some pancreatitis. This is resolved. His electrolytes are okay. We will give him clear liquids today, and gradually advance his diet over the next 24 to 48 hours. cc: Mukund Love MD
--- NOTE | 2019-06-18 20:30 | PROGRESS NOTE ---
DATE: 06/18/2019 SUBJECTIVE: The patient is sitting up in bed. He was up walking with physical therapy earlier today. He states that he feels a lot better, and he was able to tolerate a clear liquid diet today. OBJECTIVE: Vital Signs: Temperature 99.4, blood pressure 112/57, heart rate 72, respirations 18, O2 saturation 98% on room air. General: This is an elderly male sitting in the chair in no acute distress. Heart: S1, S2 normal. Regular rate and rhythm. Lungs: Clear to auscultation bilaterally. Abdomen: Positive bowel sounds. Soft, nontender, nondistended. Extremities: No edema, no cyanosis. Neurologic: The patient is alert and oriented x4. LABS: White blood cell count 5.4, hemoglobin 11, hematocrit 36, platelets 195. Sodium 139, BUN 16, creatinine 0.9 glucose 104, phosphorus 2.5, magnesium 2.1, albumin 3.3. ASSESSMENT AND PLAN: 1. Ileus. Slowly resolving. The patient is tolerating a clear liquid diet. Continue to monitor closely and advance the diet as tolerated. 2. Mild pancreatitis. Improved. 3. Chronic dilation of the pancreatic and common hepatic and common bile ducts. Aware. 4. Status post left total knee replacement. Continue with physical therapy. 5. Chronic obstructive pulmonary disease, improved. Continue with bronchodilator therapy and antibiotics. 6. Hypertension. Continue on the current antihypertensive regimen. 7. Deep vein thrombosis prophylaxis. Continue on Lovenox. 8. Continue with physical therapy. cc: Bridgette Apodaca MD
[2019-06-19] MEDS: D5 NS 1,000 ML IV SCH ×3 (02:40→06:17)
[2019-06-19] MEDS: MAXIPIME 2 GM in NS 100 ML IV SCH ×2 (02:41→14:11)
[2019-06-19] MEDS: MORPHINE IV PRN ×5 (02:41→19:32)
[2019-06-19] MEDS: LOVENOX SUBQ SCH (02:42)
[2019-06-19] MEDS: PROTONIX IV SCH (02:42)
[2019-06-19] MEDS: SODIUM CHLORIDE 0.9% INJ SCH (02:42)
[2019-06-19 07:31] LABS: AGAP 15; ALBUMIN 3.2 g/dL (3.5-5.0); BUN 16 mg/dL (8-22); CALCIUM 8.7 mg/dL (8.8-10.2); CHLORIDE 99 mmol/L (98-107); COSMO 276; CREATININE 0.8 mg/dL (0.7-1.2); ESTIMATED GFR > 60; GLUCOSE 118 mg/dL (70-104); PHOSPHORUS 2.3 mg/dL (2.7-4.5); POTASSIUM 3.1 mmol/L (3.5-5.1); SODIUM 137 mmol/L (136-145); TCO2 23 mmol/L (25-35)
[2019-06-19] MEDS ORDERED: POTASSIUM PHOSPHATE 40 MMOL in NS 250 ML IV ONE (07:44)
--- NOTE | 2019-06-19 08:32 | Diag Imaging Result Doc PS360 ---
EXAM: CHEST-2 VIEWS - 06/19/2019 HISTORY: pneumonia TECHNIQUE: Chest two views COMPARISON: 06/17/2019 one view chest FINDINGS: The nasogastric tube has been removed. Heart size is normal. There are mild bilateral lower lobe infiltrates and small pleural effusions. There is no evidence of pneumothorax. IMPRESSION: Mild bilateral lower lobe infiltrates and small pleural effusions. Electronically signed by Pb Gutierrez 06/19/2019 8:30 AM
[2019-06-19] MEDS: BENICAR PO SCH (10:40)
[2019-06-19] MEDS: NORVASC PO SCH (10:40)
[2019-06-19] MEDS: TOPROL XL PO SCH (10:41)
[2019-06-19] MEDS: CATAPRES PO SCH ×2 (10:41→23:24)
[2019-06-19] MEDS: APRESOLINE PO SCH (10:41)
[2019-06-19] MEDS: ALBUTEROL NEB INH PRN (11:16)
[2019-06-19] MEDS: SPIRIVA INH SCH (11:16)
--- NOTE | 2019-06-19 12:44 | GENERAL SURGERY PROGRESS NOTE ---
DATE: 06/19/2019 SUBJECTIVE: Doing well, tolerating clear liquids. No abdominal pain. No fevers. No tachycardia. OBJECTIVE: Vital Signs: Blood pressure 183/78. General: He is alert. Cardiovascular: Normal rate. Abdomen: Soft, nontender, nondistended. LAB: Creatinine 0.8. No LFTs today. No CBC. ASSESSMENT AND PLAN: A 64-year-old gentleman with an ileus and pancreatitis following left knee total arthroplasty. He is doing well. We will advance his diet slowly over the next 24 to 48 hours. From a surgical perspective, he is tolerating clear liquids. We will give him a soft diet and if he tolerates it we will sign off and call with any question going forward. cc: Mukund Love MD
[2019-06-19] MEDS ORDERED: MAGNESIUM SULFATE 2 GM/S.W.I. 2 GM/50 ML IVPB IV ONE ×2 (17:41→22:00)
--- NOTE | 2019-06-19 18:18 | PROGRESS NOTE ---
DATE: 06/19/2019 SUBJECTIVE: The patient is resting comfortably. He is eating a soft diet and not having any difficulty. OBJECTIVE: Vital Signs: Temperature 100.8 degrees, blood pressure 171/77, heart rate 84, respirations 17, O2 saturation is 97% on room air. General: This is a chronically ill-appearing, elderly male, sitting in bed in no acute distress. Heart: S1, S2 normal. Regular rate and rhythm. Lungs: Equal air entry bilaterally. No wheezing. No rales. Abdomen: Positive bowel sounds. Soft, nontender, nondistended. Extremities: The incision site on the right knee looks clean, dry, and intact. Neurologic: The patient is alert and oriented x4. LABORATORY DATA: Sodium 137, potassium 3.1, chloride 99, CO2 of 23, BUN 16, creatinine 0.8, glucose 118. Phosphorus 2.3, magnesium 1.7. ASSESSMENT AND PLAN: 1. Ileus. Slowly improving. The patient is now on a GI soft diet. 2. Pneumonia secondary to Enterobacter aerogenes. Continue on cefepime. We will discharge the patient on Levaquin. 3. Chronic dilation of the pancreatic, common hepatic, and common bile duct. Aware. 4. Status post left total knee arthroplasty. Aware. 5. Chronic obstructive pulmonary disease. Improved. Continue with bronchodilator therapy and antibiotic therapy. 6. Hypertension. Continue on the current antihypertensive regimen. 7. Hypokalemia. We will replace patient's potassium. 8. Hypophosphatemia. We will replace the patient's phosphorus. 9. Continue with physical therapy. cc: Bridgette Apodaca MD [facility]
[2019-06-19] MEDS ORDERED: SEROQUEL XR PO SCH (21:00)
[2019-06-19] MEDS: LYRICA PO SCH (23:24)
[2019-06-19] MEDS: COLACE PO SCH (23:24)
[2019-06-20] MEDS: MAXIPIME 2 GM in NS 100 ML IV SCH ×2 (02:23→14:07)
[2019-06-20] MEDS: LOVENOX SUBQ SCH ×2 (02:24→02:58)
[2019-06-20] MEDS: PROTONIX IV SCH ×2 (02:24→02:58)
[2019-06-20] MEDS: SODIUM CHLORIDE 0.9% INJ SCH (02:24)
[2019-06-20 07:08] LABS: HEMATOCRIT 34.2 % (42.0-52.0); HEMOGLOBIN 11.2 g/dL (14.0-18.0); MCH 28.4 PG (27-31); MCHC 32.7 g/dL (33-37); MCV 86.6 FL (81-99); MPV 11.2 FL (7.4-10.4); RBC 3.95 XMIL (4.7-6.1); RDW 12.7 % (11.5-14.5); WBC 7.61 X1000 (4.8-10.8)
[2019-06-20] MEDS: MORPHINE IV PRN ×3 (07:25→14:06)
[2019-06-20 07:34] LABS: AGAP 11; BUN 14 mg/dL (8-22); CALCIUM 8.3 mg/dL (8.8-10.2); CHLORIDE 95 mmol/L (98-107); COSMO 263; ESTIMATED GFR > 60; GLUCOSE 96 mg/dL (70-104); POTASSIUM 3.5 mmol/L (3.5-5.1); SODIUM 131 mmol/L (136-145); TCO2 25 mmol/L (25-35)
[2019-06-20] MEDS: SPIRIVA INH SCH (08:38)
[2019-06-20] MEDS ORDERED: ASPIRIN PO SCH (09:00)
[2019-06-20] MEDS ORDERED: ZYRTEC PO SCH (09:00)
[2019-06-20] MEDS ORDERED: SINGULAIR PO SCH (09:00)
[2019-06-20] MEDS ORDERED: HYGROTON PO SCH (09:00)
[2019-06-20] MEDS: CATAPRES PO SCH (10:28)
[2019-06-20] MEDS: TOPROL XL PO SCH (10:28)
[2019-06-20] MEDS: COLACE PO SCH (10:28)
[2019-06-20] MEDS: APRESOLINE PO SCH (10:28)
[2019-06-20] MEDS: LYRICA PO SCH (10:28)
[2019-06-20] MEDS: NORVASC PO SCH (10:28)
[2019-06-20] MEDS: BENICAR PO SCH (10:29)
[2019-06-20 12:00] VITALS: BP 126/68
--- NOTE | 2019-06-20 14:12 | ORTHOPAEDICS PROGRESS NOTE ---
DATE: 06/20/2019 SUBJECTIVE: No acute events overnight. The patient is tolerating a regular diet now. He has had bowel movements and is feeling much better. He is ready to go home. He has ambulated with Physical Therapy with no issues in regards to his knee. OBJECTIVE: Hematocrit is 34, white count is 7.6. Extremities: Examination of the left lower extremity again shows Dermabond Prineo dressing to be intact with no sign of infection. No erythema or induration. Good painless hip range of motion. He has been ambulating appropriately. Neurovascularly intact. ASSESSMENT: A 64-year-old male status post left total knee arthroplasty, postoperative day 6. PLAN: 1. The patient can continue to be weightbearing as tolerated, left lower extremity. He needs to work with home health physical therapy as was previously scheduled prior to this hospitalization. 2. Aspirin for DVT prophylaxis. 3. Appreciate General Surgery and hospitalist recommendations. 4. Disposition per primary team. The patient is planning on being discharged home today. He should continue working with Physical Therapy as he was prior to this hospitalization. He will follow up with Dr. Restrepo this at his scheduled appointment.
--- NOTE | 2019-06-21 04:51 | ORTHOPAEDICS PROGRESS NOTE ---
DATE: 06/19/2019 SUBJECTIVE: No acute events overnight. Patient has had 2 bowel movements yesterday. He ambulated 250 feet with physical therapy. He is feeling much better overall. He has been tolerating a clear liquid diet. OBJECTIVE: Hematocrit 36 yesterday. Vital Signs: Stable. Extremities: Examination of the left lower extremity shows surgical dressing clean, dry, intact. No sign of infection. Good range of motion of the knee. Minimal pain with active and passive range of motion of the knee. He is able to do a straight leg raise. Neurovascularly intact. ASSESSMENT: A 64-year-old male status post left total knee arthroplasty. Postop day 5. PLAN: 1. Patient is doing well. Mobilize him with physical therapy. Encouraged him to continue to work on terminal extension as well as flexion exercises as well on the bed. Therapy to continue to mobilize. 2. Ice to the left lower extremity as needed for pain. 3. Lovenox DVT prophylaxis. 4. Disposition per primary team. His ileus seems to be resolving. They will advance his diet as tolerated. He will follow up with Dr. Restrepo as previously scheduled appointment.
--- NOTE | 2019-06-29 17:23 | DISCHARGE SUMMARY ---
ADMISSION DATE: 06/16/2019 DISCHARGE DATE: 06/20/2019 FINAL DISCHARGE DIAGNOSES: 1. Ileus. 2. Pneumonia secondary to Enterobacter aerogenes. 3. Chronic dilatation of the pancreatic common hepatic and common bile duct. 4. Status post left total knee arthroplasty. 5. Chronic obstructive pulmonary disease. 6. Hypertension. CONSULTATIONS: 1. General Surgery consultation with Dr. Santiago. 2. Orthopedic consultation with Dr. Restrepo. HOSPITAL COURSE: Mr. Joseph is a 64-year-old male with a history of multiple medical problems who was recently discharged after undergoing a left total knee arthroplasty. He presented with abdominal pain as well as nausea and vomiting. On admission, a CT of the abdomen and pelvis was done that revealed a partial small bowel obstruction and chronic biliary dilatation. The patient was admitted to the hospitalist service, and an NG tube was placed to low intermittent suction. General Surgery was also consulted for assistance with management. Also, a chest x-ray was done that revealed cardiomegaly and pulmonary edema as well as possible pneumonia. Blood cultures were obtained as well as a sputum culture, and the patient was started on broad-spectrum antibiotics. The patient responded well to NG tube decompression, and was eventually started on a clear liquid diet. Ultimately, the sputum grew out Enterobacter and the patient's antibiotic therapy was adjusted according to the culture results. The patient continued to improve clinically, and his diet was slowly advanced until he was on a solid diet which he tolerated without any difficulty. The patient was then transitioned to oral antibiotic therapy. The patient was then cleared for discharge home on 06/20/2019. DISCHARGE MEDICATIONS: 1. Augmentin 875/125 one tab oral twice a day. 2. Norvasc 10 mg p.o. daily. 3. Albuterol nebulizer treatments every 4 hours p.r.n. 4. Aspirin 325 mg oral daily. 5. Chlorthalidone 25 mg p.o. daily. 6. Colace 100 mg p.o. twice a day. 7. Catapres 0.1 mg oral twice a day. 8. Hydralazine 100 mg oral daily. 9. Vitamin D2 62290 units oral once a week. 10. Toprol-XL 100 mg oral every morning. 11. Singulair 10 mg p.o. daily. 12. Benicar 40 mg p.o. daily. 13. Omeprazole 40 mg p.o. daily. 14. Pravastatin 20 mg p.o. at bedtime. 15. Lyrica 75 mg oral twice a day. 16. Seroquel XR 50 mg oral at bedtime. 17. Spiriva 2 puffs inhaled every morning. 18. Ultram 100 mg oral every 6 hours p.r.n. for pain. DISCHARGE DIET: Low-sodium, low-cholesterol diet. ACTIVITY: As tolerated. FOLLOWUP INSTRUCTIONS: The patient will need to follow up with Dr. Brian Restrepo on 06/24/2019. The patient will need to follow up with TAMARA Santos on 07/05/2019. cc: Bridgette Apodaca MD
== END 2019-06-20 14:43 | disposition home or self-care (01) | DRG 388 ==
LOC: ED 21:57 → 4N 06-16 02:53 → SUATTDRO 06-16 02:53
PROVIDERS: ATTEND Internal Medicine

== ENCOUNTER 2019-07-03 10:48 | Inpatient (IN) ==
[2019-07-03] MEDS ORDERED: TORADOL IV ONE (11:30)
--- NOTE | 2019-07-03 11:49 | Diag Imaging Result Doc PS360 ---
EXAM: WRIST COMPLETE RIGHT 07/03/2019 HISTORY: acute STS, inflammation TECHNIQUE: Right wrist three views COMMENT: There are deformities of the scaphoid distal radius and ulna which have not changed since 08/11/2018. There is some erosion of the base of the fifth metacarpal which was also the case previously. The joint space between the radius and the scaphoid has widened since the previous study of uncertain significance. This may be due to an effusion. IMPRESSION: No acute bony abnormalities. Arthritic changes and possible effusion in the radiocarpal joint. Electronically signed by Anthony Xavier 07/03/2019 11:47 AM
[2019-07-03 12:33] LABS: BASO# 0.02 X1000 (0.0-0.2); BASO% 0.2 % (0.0-0.8); EOS# 0.01 X1000 (0.0-0.7); EOS% 0.1 % (0.0-10.0); HEMATOCRIT 35.8 % (42.0-52.0); HEMOGLOBIN 11.9 g/dL (14.0-18.0); IMM GRAN# 0.02 X1000 (0.0-0.04); IMM GRAN% 0.2 % (0.0-0.5); LYMPH# 1.47 X1000 (1.2-3.4); LYMPH% 14.4 % (20.5-51.1); MCH 28.4 PG (27-31); MCHC 33.2 g/dL (33-37); MCV 85.4 FL (81-99); MONO# 0.97 X1000 (0.11-0.59); MONO% 9.5 % (1.7-9.3); MPV 9.2 FL (7.4-10.4); NEUT# 7.72 X1000 (1.4-6.5); NEUT% 75.6 % (42.2-75.2); PLT 525 X1000 (130-400); RBC 4.19 XMIL (4.7-6.1); RDW 12.8 % (11.5-14.5); WBC 10.21 X1000 (4.8-10.8)
[2019-07-03 12:48] LABS: AGAP 14; ALB/GLOB RATIO 1.2; ALBUMIN 3.8 g/dL (3.5-5.0); ALKALINE PHOSPHATASE 146 U/L (32-122); BUN 11 mg/dL (8-22); C REACTIVE PROT QUANT 112.61 mg/L (0.00-5.00); CALCIUM 9.5 mg/dL (8.8-10.2); CHLORIDE 94 mmol/L (98-107); COSMO 268; ESTIMATED GFR > 60; GLUCOSE 132 mg/dL (70-104); GOT 14 U/L (10-34); GPT 14 U/L (10-44); POTASSIUM 4.4 mmol/L (3.5-5.1); SODIUM 133 mmol/L (136-145); TCO2 25 mmol/L (25-35); TOTAL BILIRUBIN 0.48 mg/dL (0.20-1.00); URIC ACID 3.9 mg/dL (3.4-7.0)
[2019-07-03 13:36] LABS: SED RATE 42 mm/hr (0-15)
[2019-07-03] MEDS ORDERED: TYLENOL PO PRN (14:40)
[2019-07-03] MEDS ORDERED: ZOFRAN IV PRN (14:40)
[2019-07-03] MEDS ORDERED: DILAUDID IV ONE (14:42)
[2019-07-03] MEDS ORDERED: APRESOLINE IV ONE (14:56)
[2019-07-03] MEDS ORDERED: VANCOMYCIN IV PER PHARMACY MISC SCH (15:00)
[2019-07-03] MEDS ORDERED: APRESOLINE IV PRN (15:13)
[2019-07-03] MEDS: ZOSYN 3.375 GM in NS 50 ML IV SCH ×2 (15:35→20:09)
[2019-07-03] MEDS ORDERED: VANCOMYCIN 1,800 MG in NS 250 ML IV ONE (16:00)
--- NOTE | 2019-07-03 17:13 | PROVIDER DOCUMENTATION ---
This chart was entered by Gaby Serna Scribe, acting as scribe for Manjinder Yoo MD. HPI-Musculoskeletal Pain/Inj - GENERAL Chief Complaint: Extremity Pain Stated Complaint: HAND SWELLING Time Seen by Provider: 07/03/19 11:21 Source: patient, family - HX OF PRESENT ILLNESS-MUSKULOSKELTAL Nature of Presenting Problem: 64 yowm presents to the ed with c/o rt hand/wrist pain with redness and swelling. pt sts acute onset last night and has worsened since onset. pt denies injury or hx of gout. Onset/Duration: last night Timing: still present, constant, getting worse Modifying Factors: improves with: immobilization. worse with: movement, palpation Any recent injury?: No Locality of Occurance: Home Similar Symptoms Previously?: No Recently seen or treated by another doctor?: No Review of Systems - Adult - REVIEW OF SYSTEMS - ADULT Constitutional: reports: no symptoms reported Eyes: reports: no symptoms reported Ears, Nose, Mouth & Throat: reports: no symptoms reported Cardiovascular: denies: chest pain, palpitations Respiratory: denies: shortness of breath, wheezing Gastrointestinal: denies: abdominal pain, diarrhea, nausea, vomiting Genitourinary: reports: no symptoms reported Musculoskeletal: reports: no symptoms reported, joint pain, joint swelling, other (rt hand) Integumentary: reports: no symptoms reported Neurological: denies: dizziness/vertigo, headache/migraines Psychiatric: reports: no symptoms reported Endocrine: reports: no symptoms reported Hematologic/Lymphatic: reports: no symptoms reported Allergic/Immunologic: reports: no symptoms reported All Other Systems: Reviewed and Negative Past History - Adult - PAST MEDICAL HISTORY-ADULT Review of Records: reports: Old Records Reviewed, Nursing Assessment Review, Medications Reviewed, Social history reviewed & non-contributory. Major Childhood Illnesses: reports: denies history Cardiovascular: reports: HTN, hyperlipidemia Respiratory: reports: asthma, COPD Gastrointestinal: reports: GERD, hemorrhoids, ulcer Genitourinary: reports: denies history Musculoskeletal: reports: arthritis, chronic pain, neck/back injury (neck fracture), other (sinus fracture) Neurological: reports: CVA, TIA Psychiatric: reports: bipolar Endocrine/Immune: reports: denies history Other Conditions: reports: denies history - PRIOR SURGERIES/PROCEDURES Surgical/Procedure History: reports: joint replacement, other (hemmoroidectomy) - IMMUNIZATION STATUS Childhood Immunizations: See Nurse Assessment Flu Vaccine: See Nurse Assessment - FAMILY HISTORY Family History: reviewed, not pertinent - SOCIAL HISTORY Smoking: cigarettes, greater than 1 pack/day Provider spent 3-5 mins advising pt. on dangers of tobacco.: Discussed manners to quit use, and f/u contacts for add'l counseling. Substance Use: denies Alcohol Use Frequency: never Living Situation: family Physical Exam-Injury Related - Physical Exam-Injury Related Initial Vital Signs Reviewed: Yes General Appearance: appears well, alert, no apparent distress Eyes: PERRL/EOMI, pink conjunctivae Head, Ears, Nose, Mouth & Throat: moist mucous membranes, dental decay Neck: full range of motion, normal inspection Cardiovascular: normal peripheral pulses, tachycardia (109) Chest/Breast: deferred Abdominal Exam: non tender, soft Male Genitalia: deferred Rectal Exam: deferred Hemoccult Exam: deferred Back Exam: no CVA tenderness, no vertebral tenderness Extremity: normal capillary refill, erythema (rt hand/wrist), swelling (rt hand/wrist), tenderness (rt hand/wrist). negative: normal range of motion ( painful) Integumentary: warm/dry, erythema (rt hand/wrist). negative: ecchymosis Neurologic: grossly normal Psych/Mental Status: normal mood/affect, normal thought content, normal thought process, oriented x 3 - Glascow Coma Score Best Eye Response ([place]): (4) open spontaneously Best Verbal Response ([place]): (5) oriented Best Motor Response ([place]): (6) obeys commands [place] Total: 15 Progress - PLAN OF CARE/RESULTS Progress/Plan/Lab Results: Vital Signs - 8 hr 07/03/19 10:51 07/03/19 10:59 07/03/19 11:00 Temperature 98.9 F Pulse Rate 109 H 99 H Respiratory Rate 16 23 Blood Pressure 221/95 O2 Sat by Pulse Oximetry 97 100 99 07/03/19 11:01 07/03/19 11:02 07/03/19 11:30 Temperature Pulse Rate 99 H 98 H 94 H Respiratory Rate 25 H 23 24 Blood Pressure 221/109 235/106 O2 Sat by Pulse Oximetry 98 98 97 07/03/19 12:00 07/03/19 12:02 Temperature Pulse Rate 89 90 Respiratory Rate 21 17 Blood Pressure 213/105 O2 Sat by Pulse Oximetry 97 98 Laboratory Results - last 24 hr 07/03/19 07/03/19 12:00 12:00 WBC 10.21 RBC 4.19 L Hgb 11.9 L Hct 35.8 L MCV 85.4 MCH 28.4 MCHC 33.2 RDW Std Deviation 12.8 Plt Count 525 H MPV 9.2 Immature Gran % (Auto) 0.2 Neut % (Auto) 75.6 H Lymph % (Auto) 14.4 L [place] % (Auto) 9.5 H Eos % (Auto) 0.1 Baso % (Auto) 0.2 Immature Gran # (Auto) 0.02 Neut # (Auto) 7.72 H Lymph # (Auto) 1.47 [place] # (Auto) 0.97 H Eos # (Auto) 0.01 Baso # (Auto) 0.02 ESR 42 H Sodium 133 L Potassium 4.4 Chloride 94 L Carbon Dioxide 25 Anion Gap 14 BUN 11 Creatinine 1.0 Estimated GFR/1.73 m2 > 60 BUN/Creatinine Ratio 11 Glucose 132 H Calculated Osmolality 268 Uric Acid 3.9 Calcium 9.5 Total Bilirubin 0.48 AST 14 ALT 14 Alkaline Phosphatase 146 H C-Reactive Prot, Quant 112.61 H Total Protein 7.0 Albumin 3.8 Globulin 3.2 Albumin/Globulin Ratio 1.2 Orders Category Date Time Status Admit - [facility] Routine AdmDCTranf 07/03/19 14:40 Active Activity - Up with Assistance ORDERED Care 07/03/19 14:40 Active Intake and Output-Strict ORDERED Care 07/03/19 14:40 Active Nursing [Misc. NRSG Communication Order] DIRECTED Care 07/03/19 14:45 Active Nursing [Misc. NRSG Communication Order] Q4H Care 07/03/19 15:21 Active Nursing- MD Consult Request ROUTINE Care 07/03/19 14:42 Active Update & Confirm Home Medicati ROUTINE Care 07/03/19 14:45 Active Vital Signs Order Q 8-HR ASSESS Care 07/03/19 14:40 Active Z-Document. for Tele Applied ORDERED Care 07/03/19 14:42 Active Physician/Provider Consults Routine Cons 07/03/19 14:40 Ordered Heart Healthy Diet Diet 07/03/19 14:41 Active NPO Diet 07/04/19 00:01 Active WRIST COMPLETE RIGHT [RAD] Stat Exams 07/03/19 11:28 Completed BASIC METABOLIC PANEL [CHEM] Routine Lab 07/04/19 06:00 Uncollected BLOOD CULTURE [BLDCUL] Stat Lab 07/03/19 12:00 Results C REACTIVE PROT QUANT [CHEM] Stat Lab 07/03/19 12:00 Completed CBC WITH DIFF [HEME] Routine Lab 07/04/19 06:00 Uncollected CBC WITH DIFF [HEME] Stat Lab 07/03/19 12:00 Completed CMP [COMPREHENSIVE METABOLIC PANEL] [CHEM] Stat Lab 07/03/19 12:00 Completed SED RATE [HEME] Stat Lab 07/03/19 12:00 Completed URIC ACID [CHEM] Stat Lab 07/03/19 12:00 Completed Acetaminophen [Tylenol] Med 07/03/19 14:40 Active 650 mg PO Q6H PRN PRN Albuterol 2.5MG/Ipratrop 0.5MG [Duoneb (A & A)] Med 07/03/19 15:17 Active 3 ml INH Q2H PRN PRN Amlodipine [Norvasc] Med 07/04/19 09:00 Active 10 mg PO DAILY Cetirizine [Zyrtec] Med 07/04/19 09:00 Active 10 mg PO DAILY Chlorthalidone [Hygroton] Med 07/04/19 09:00 Active 25 mg PO DAILY Clonidine [Catapres] Med 07/03/19 21:00 Active 0.1 mg PO BID Docusate Sodium [Colace] Med 07/03/19 21:00 Active 100 mg PO BID Hydralazine [Apresoline] Med 07/03/19 14:56 Discontinued 10 mg IV NOW ONE Hydralazine [Apresoline] Med 07/03/19 15:13 Active 10 mg IV Q4H PRN PRN Hydralazine [Apresoline] Med 07/04/19 09:00 Active 100 mg PO DAILY Hydrocodone/APAP 7.5 mg/325 mg [[place]-7.5] Med 07/03/19 14:44 Active 1 each PO Q4H PRN PRN Hydromorphone [Dilaudid] Med 07/03/19 14:42 Discontinued 0.5 mg IV NOW ONE Ketorolac [Toradol] Med 07/03/19 11:30 Discontinued 30 mg IV NOW ONE Methocarbamol [Robaxin] Med 07/03/19 15:00 Active 500 mg PO BID PRN PRN Metoprolol Succinate E.r. [Toprol Xl] Med 07/04/19 09:00 Active 100 mg PO QAM Olmesartan [Benicar] Med 07/04/19 09:00 Active 40 mg PO DAILY Omeprazole [Prilosec] Med 07/04/19 09:00 Active 40 mg PO DAILY Ondansetron [Zofran] Med 07/03/19 14:40 Active 4 mg IV Q4H PRN PRN PRAVAstatin [Pravachol] Med 07/03/19 21:00 Active 20 mg PO QHS Pharmacy Order [Vancomycin IV Per Pharmacy] Med 07/03/19 15:00 Active 1 each MISC DIRECTED Piperacillin/Tazobactam [Zosyn] 3.375 gm Med 07/03/19 15:00 Active 0.9% Sodium Chloride Inj [Ns] 50 ml IV Q6H Pregabalin [Lyrica] Med 07/03/19 21:00 Active 75 mg PO BID Quetiapine E.r. [Seroquel Xr] Med 07/03/19 21:00 Active 50 mg PO QHS Tiotropium [place] Inhaler [Spiriva] Med 07/04/19 07:30 Active 2 puff INH RTDAILY Aerosol Treatments Routine Oth 07/03/19 15:18 Completed Telemetry [OM.EQ] Routine Oth 07/03/19 14:40 Active Transfer/Admit Order [TRANSFER] Routine Transfer 07/03/19 15:19 Completed Result Diagrams: 07/03/19 12:00 07/03/19 12:00 - XRAY 1 XRAY: Right XRAY Study: Wrist Impression: See EMR Report (EXAM: WRIST COMPLETE RIGHT 07/03/2019 HISTORY: acute STS, inflammation TECHNIQUE: Right wrist three views COMMENT: There are deformities of the scaphoid distal radius and ulna which have not changed since 08/11/2018. There is some erosion of the base of the fifth metacarpal which was also the case previously. The joint space between the radius and the scaphoid has widened since the previous study of uncertain significance. This may be due to an effusion. IMPRESSION: No acute bony abnormalities. Arthritic changes and possible effusion in the radiocarpal joint. Electronically signed by Anthony Xavier 07/03/2019 11:47 AM 07/03/19 1147 Interpreting Physician: Anthony Xavier MD Dictated Date/Time: 07/03/19 1145 cc: Manjinder Yoo MD; Sally Baires) - CONSULTS/PCP/HOSPITALIST Notification #1 *Consult/PCP/Hospitalist*: Adrienne Time Discussed: 14:45 Consult Disposition: Will see in ED Departure - Departure Date of Disposition Decision: 07/03/19 Time of Disposition Decision: 15:00 DIAGNOSIS: Inflammatory arthritis Disposition: ADMITTED INPATIENT 09 Certified Medical Emergency: Emergent Condition: Stable - Critical Care Note This patient required my direct & personal management of CC.: No Attestation - Physician/ DAWOOD Attestation Patient care was provided by Advanced Practice Provider:: No The physician spent face to face time with patient:: Yes Advanced Practice Provider documentation review:: Supervising physician onsite and consulted in the evaluation and care of this patient. The physician did have a face to face encounter with the patient. This chart was documented by the indicated scribe, (Gaby Serna Scribe) and accurately reflects the services I performed and decisions made by me, Manjinder Yoo MD, as attested by the provider's signature.
[2019-07-03] MEDS: NORCO-7.5 PO PRN (17:57)
[2019-07-03] MEDS: ROBAXIN PO PRN (18:50)
[2019-07-03] MEDS: SEROQUEL XR PO SCH (20:08)
[2019-07-03] MEDS: PRAVACHOL PO SCH (20:09)
[2019-07-03] MEDS: LYRICA PO SCH (20:09)
[2019-07-03] MEDS: CATAPRES PO SCH (20:09)
[2019-07-03] MEDS: COLACE PO SCH (20:09)
[2019-07-04] MEDS: ZOSYN 3.375 GM in NS 50 ML IV SCH ×4 (03:07→20:00)
--- NOTE | 2019-07-04 03:58 | HISTORY AND PHYSICAL ---
CHIEF COMPLAINT: Right wrist pain. HISTORY OF PRESENT ILLNESS: This is a 64-year-old gentleman with a history of hypertension, COPD, hyperlipidemia, CVA, and recent small bowel obstruction. He presents to the emergency room complaining of right wrist pain, swelling and redness. He states that he woke up through the night with his wrist hurting. This morning he noted that it was swollen. It was red. He had difficulty. He was unable to bend his wrist secondary to pain and cannot make a complete fist secondary to pain. Mr. Joseph was hospitalized June 16 to June 28. He had multiple IVs during this time. He had 2 maybe 3 that he remembers in this area. He denied any drainage, any fevers or chills. PAST MEDICAL HISTORY: 1. Hypertension. 2. CVA with residual visual defect. 3. History of alcohol dependence with his last drink being close to a year ago. 4. Chronic obstructive pulmonary disease. 5. Hyperlipidemia. 6. Nicotine dependence. 7. Recent small bowel obstruction. PAST SURGICAL HISTORY: Left hip and left ulnar nerve repair, left total knee replacement 06/14/2019. SOCIAL HISTORY: He smokes about a half pack a day. He denies any illicit drug use. ALLERGIES: No known drug allergies. HOME MEDICATIONS: A list will be obtained by the nursing staff and once verified we will review and restart as appropriate. REVIEW OF SYSTEMS: Discussed with patient with pertinent positives stated in the HPI. He denied any syncope or dizziness, any chest pain, palpitations, any shortness of breath, cough, fever, chills, any night sweats, any recent weight loss or weight gain, any nausea, vomiting, diarrhea, constipation, black or bloody vomitus or stools, hematuria, dysuria, frequency, urgency. PHYSICAL EXAMINATION: GENERAL: This is a 64-year-old gentleman who is sitting up on the stretcher in the emergency room in no distress. VITAL SIGNS: Blood pressure is 196/101, respirations are 17, heart rate is 90, temperature is 98.9 degrees with O2 saturations 97% to 98%. EYES: Pupils equal, round, react to light. EOMs are intact. Sclerae anicteric. HENT: Head is normocephalic, atraumatic. Mucous membranes moist. NECK: Supple. Trachea midline. CARDIOVASCULAR: Regular rate and rhythm. S1 and S2 appreciated. He has no lower extremity edema. Peripheral pulses are palpable x4 extremities. LABORATORIES: WBC is 10.2 with hemoglobin 11.9, hematocrit 35.8, platelets of 525,000. Sodium 133, potassium 4.4, BUN 11, creatinine 1 with a glucose of 132. CRP is 112.61 with a sedimentation rate of 42. Blood cultures are pending. X-ray of the right wrist reveals no acute bony abnormalities, arthritic changes, possible effusion in the radiocarpal joint. ASSESSMENT AND PLAN: 1. Cellulitis, right wrist. 2. Possible joint fusion of the radiocarpal joint. 3. Hypertension. 4. Chronic obstructive pulmonary disease. PLAN: The patient will be admitted to the hospital and placed on telemetry. We will give a regular diet now. He will be NPO after midnight. Dr. Ellington has been consulted. He will see the patient in the morning. Blood cultures were drawn in the emergency room. We will start antibiotic coverage of vancomycin and Zosyn and then further antibiotics will be culture driven. We will identify his home medications and continue as appropriate. We will give 0.5 mg of Dilaudid now then Elmer 7.5 q.4 hours p.r.n. pain. Check a CBC and BMP in the morning. We will order for him to keep his right arm elevated with neurovascular checks to right arm and right hand q.4 hours. Plan was discussed with Dr. Reynaga. Further treatments pending hospital course. Dictated by TAMARA Estrada for Van Weinstein MD Addendum: Patient seen and examined by myself. Agree with TAMARA note. It reflects my assessment and plan. Patient is being admitted to hospital for right wrist cellulitis. Will start IV antibiotics and will check labs daily. cc: TAMARA Estrada MD [facility]
[2019-07-04 07:05] LABS: BASO# 0.03 X1000 (0.0-0.2); BASO% 0.4 % (0.0-0.8); EOS# 0.21 X1000 (0.0-0.7); EOS% 2.8 % (0.0-10.0); HEMATOCRIT 34.3 % (42.0-52.0); HEMOGLOBIN 11.1 g/dL (14.0-18.0); LYMPH# 1.56 X1000 (1.2-3.4); MCHC 32.4 g/dL (33-37); MCV 86.6 FL (81-99); MONO% 10.8 % (1.7-9.3); MPV 9.1 FL (7.4-10.4); NEUT# 4.84 X1000 (1.4-6.5); PLT 440 X1000 (130-400); RBC 3.96 XMIL (4.7-6.1); RDW 12.9 % (11.5-14.5); WBC 7.44 X1000 (4.8-10.8)
[2019-07-04] MEDS: SPIRIVA INH SCH (07:37)
[2019-07-04 07:52] LABS: AGAP 16; BUN 13 mg/dL (8-22); CALCIUM 9.6 mg/dL (8.8-10.2); CHLORIDE 100 mmol/L (98-107); COSMO 277; CREATININE 1.2 mg/dL (0.7-1.2); ESTIMATED GFR > 60; GLUCOSE 94 mg/dL (70-104); POTASSIUM 4.1 mmol/L (3.5-5.1); SODIUM 139 mmol/L (136-145); TCO2 23 mmol/L (25-35)
[2019-07-04] MEDS: NORCO-7.5 PO PRN ×3 (08:59→19:59)
[2019-07-04] MEDS: APRESOLINE PO SCH (09:10)
[2019-07-04] MEDS: CATAPRES PO SCH ×2 (09:10→20:01)
[2019-07-04] MEDS: NORVASC PO SCH (09:10)
[2019-07-04] MEDS: TOPROL XL PO SCH (09:10)
[2019-07-04] MEDS: ZYRTEC PO SCH (09:11)
[2019-07-04] MEDS: BENICAR PO SCH (09:11)
[2019-07-04] MEDS: HYGROTON PO SCH (09:11)
[2019-07-04] MEDS ORDERED: VANCOMYCIN 1 GM/NS 1 GM/250 ML IVPB IV SCH (10:00)
[2019-07-04] MEDS: VANCOMYCIN 1 GM/NS 1 GM/250 ML IVPB IV SCH (11:05)
--- NOTE | 2019-07-04 13:28 | ORTHOPAEDICS CONSULTATION ---
DATE: 07/04/2019 CHIEF COMPLAINT: Right wrist pain. HISTORY OF PRESENT ILLNESS: Mr. Joseph is a 64-year-old male who presented to the emergency department for evaluation of his right hand. He noticed some swelling come up about a day or two ago and some difficulty moving his hand as well. He was recently hospitalized and had a lot of IVs at that time. He denies any fever or chills at this point. PAST MEDICAL HISTORY: Hypertension, cerebrovascular accident, COPD. PAST SURGICAL HISTORY: Left hip surgery, he had a ulnar nerve release, a left total knee replacement recently. SOCIAL HISTORY: He smokes about a half pack a day. Denies any drug use. ALLERGIES: No known drug allergies. MEDICATIONS: Per the medical record. REVIEW OF SYSTEMS: Positive for right hand pain. All other systems are essentially negative. PHYSICAL EXAMINATION: Mr. Joseph is lying in bed this morning. Overall, pain is controlled. He is in no acute distress. Head and Neck: Normocephalic, atraumatic. Respirations: Nonlabored breathing. Cardiovascular: Regular pulse. Abdomen is nondistended. Right Upper Extremity Examination: He had some swelling to the dorsum of the hand and the wrist area. He is able to move the wrist a little bit without a lot of pain and he is able to move all the fingers, although that does elicit a little bit of pain as well. He had some erythema to that whole area. I do not feel any areas of definite fluctuance. He has good sensation to light touch to all the fingers. No skin ulcerations or abrasions seen. RADIOGRAPHS: Several views of the right wrist show some degenerative changes to the mid carpal bones. It looks like he had an old scaphoid fracture in the past that healed a little bit short. ASSESSMENT: Right wrist cellulitis. PLAN: Mr. Joseph is on IV antibiotics. I am going to check on him a little bit later to see if his IV antibiotics are helping. If he is still really swollen, we may end up having to aspirate his wrist joint and see if there is infection there. I will check on him in a few hours. In the meantime, he will remain NPO for now. cc: Reji Ellington MD
[2019-07-04] MEDS: COLACE PO SCH ×2 (18:32→20:01)
[2019-07-04] MEDS: PRILOSEC PO SCH (18:32)
[2019-07-04] MEDS: LYRICA PO SCH ×2 (18:34→20:03)
[2019-07-04] MEDS: PRAVACHOL PO SCH (20:01)
[2019-07-04] MEDS: SEROQUEL XR PO SCH (20:01)
[2019-07-04] MEDS ORDERED: MORPHINE IV ONE (21:15)
--- NOTE | 2019-07-04 21:31 | PROGRESS NOTE ---
DATE: 07/04/2019 INTERVAL HISTORY: The patient with slightly better movement of the right wrist, but still pretty tender and edematous. Evaluated by Orthopedic surgery this morning. They plan on re-evaluating later in the day to see if a joint aspiration is necessary. No other acute events. No other complaints aside from the wrist pain and stiffness. REVIEW OF SYSTEMS: Twelve point review of systems negative as per interval history. LABS: WBC 7.4, hemoglobin 11.1, hematocrit 34.3, platelets 440. Sodium 139, potassium 4.1, BUN 13, creatinine 1.2, glucose 94. VITALS: T-max 99.5 degrees, pulse 64, respirations 20, blood pressure 138/61, O2 saturation 94% on room air. PHYSICAL EXAMINATION: General: No acute distress. Vitals: As above. HEENT: Normocephalic, atraumatic. Moist mucous membranes. No cervical adenopathy. Cardiovascular: Regular rate and rhythm. No murmurs noted. Pulmonary: Clear to auscultation bilaterally. No wheezing, rales, or rhonchi. Abdomen: Soft, nontender, nondistended. Nondistended. Bowel sounds positive. Extremities: Peripheral pulses intact. No clubbing or cyanosis. The patient with pain on movement of the right wrist. Significant surrounding erythema. Still some edema, but better movement of his fingers. Neurologic: Cranial nerves grossly intact. Limited right hand movement secondary to hand/wrist movement secondary to pain but no focal neurologic deficits identified. Psychiatric: Normal mood and affect. Awake, alert, oriented x3. Skin: No new rashes or lesions identified aside from right wrist hand findings as above. ASSESSMENT AND PLAN: 1. Cellulitis of right wrist with possible joint effusion. Further orthopedic evaluation pending as above. Continue antibiotics with vancomycin and Zosyn for now. We will see if Orthopedic has to perform a procedure on him or not. Continue pain control and monitor. 2. Hypertension. Acceptable control with patient's home medications. Monitor. 3. Tobacco abuse. The patient has been counseled on cessation. 4. Gastroesophageal reflux disease. Continue proton pump inhibitor. 5. Hyperlipidemia. Continue home statin. 6. Chronic obstructive pulmonary disease. No sign of exacerbation at this time. Monitor.
[2019-07-05] MEDS: ZOSYN 3.375 GM in NS 50 ML IV SCH ×4 (03:50→20:45)
[2019-07-05] MEDS: NORCO-7.5 PO PRN ×5 (03:54→23:11)
[2019-07-05] MEDS: VANCOMYCIN 1 GM/NS 1 GM/250 ML IVPB IV SCH ×2 (03:55→23:02)
--- NOTE | 2019-07-05 07:48 | ORTHOPAEDICS PROGRESS NOTE ---
DATE: 07/05/2019 SUBJECTIVE: Mr. Joseph is feeling better this morning. He did have some increased pain last night. I gave him a one-time dose of morphine, and that actually helped him rest really well. OBJECTIVE: Right upper extremity exam: His swelling has come down a lot. He has got a lot more motion in his fingers and also his wrist. There is not near as much erythema there either. Not a lot of tenderness to palpation around the wrist today. ASSESSMENT: Right hand and wrist cellulitis. PLAN: I think Mr. Joseph has gotten a lot better already. I think he has respond really well on IV antibiotics. From an orthopedic standpoint, I do not think we need to do any surgical procedure since he is clinically getting better very quickly. Will just continue to follow. If he is discharged, I would like to see him this week in clinic. cc: Reji Ellington MD
[2019-07-05] MEDS: SPIRIVA INH SCH (07:53)
[2019-07-05] MEDS: TOPROL XL PO SCH (08:14)
[2019-07-05] MEDS: COLACE PO SCH ×2 (08:15→20:43)
[2019-07-05] MEDS: LYRICA PO SCH ×2 (08:16→20:43)
[2019-07-05] MEDS: HYGROTON PO SCH (08:16)
[2019-07-05] MEDS: PRILOSEC PO SCH (08:16)
[2019-07-05] MEDS: NORVASC PO SCH ×2 (08:17→08:21)
[2019-07-05] MEDS: CATAPRES PO SCH ×2 (08:17→20:43)
[2019-07-05] MEDS: BENICAR PO SCH (08:17)
[2019-07-05] MEDS: ZYRTEC PO SCH (08:17)
[2019-07-05] MEDS: APRESOLINE PO SCH (08:18)
[2019-07-05] MEDS: DUONEB (A & A) INH PRN ×2 (11:27→15:38)
[2019-07-05] MEDS ORDERED: MORPHINE IV PRN (13:50)
[2019-07-05] MEDS: TORADOL IV SCH ×2 (14:23→20:42)
--- NOTE | 2019-07-05 15:27 | PROGRESS NOTE ---
DATE: 07/05/2019 SUBJECTIVE: Patient reports still complaining of pain in the right wrist but definitely less reddening and swelling there. OBJECTIVE: Vital Signs: Temperature 98.1 degrees, heart rate 73, respiratory rate 14, blood pressure 102/44, O2 saturation 100% on 2 L nasal cannula. General: This is a 65-year-old male, lying in bed, in no acute distress. Cardiovascular: S1, S2 heard. No murmurs, gallops, or rubs. Regular rate and rhythm. Respiratory: Clear bilaterally to auscultation. No work of breathing or using accessory muscles. Abdomen: Soft. Nontender to palpation. Bowel sounds present. No organomegaly. Extremities: Right wrist with less swelling and reddening, limited right hand movement as well as well as right elbow. Neurological: Patient alert and oriented x3. Moves 4 extremities. LABORATORY DATA: Reviewed. ASSESSMENT/PLAN: 1. Cellulitis of the right wrist with possible joint effusion. The patient has been evaluated by Dr. Ellington from Orthopedics and he thinks and we think that this patient is improving a lot with IV antibiotics. In this case, we will continue with those. They are not planning to do any intervention on this patient. We will continue with vancomycin and Zosyn. We will optimize pain control. 2. Hypertension. Blood pressure is under control. We will continue home medications. 3. Tobacco abuse. Patient has been counseled to stop smoking tobacco. 4. Gastroesophageal reflux disease. We will continue with the Protonix. 5. Chronic obstructive pulmonary disease. Patient is not in any exacerbation. We will continue to monitor. 6. Disposition. I think this patient is slowly getting better. We will release this patient in the next 48 hours. cc: Van Weinstein MD [facility]
[2019-07-05] MEDS: SEROQUEL XR PO SCH (20:44)
[2019-07-05] MEDS: PRAVACHOL PO SCH (20:44)
[2019-07-06] MEDS: ZOSYN 3.375 GM in NS 50 ML IV SCH ×4 (02:52→21:57)
[2019-07-06] MEDS: TORADOL IV SCH ×2 (02:52→09:27)
[2019-07-06 07:10] LABS: BASO# 0.02 X1000 (0.0-0.2); BASO% 0.3 % (0.0-0.8); EOS# 0.27 X1000 (0.0-0.7); EOS% 3.8 % (0.0-10.0); HEMATOCRIT 34.9 % (42.0-52.0); HEMOGLOBIN 11.1 g/dL (14.0-18.0); LYMPH# 1.66 X1000 (1.2-3.4); LYMPH% 23.6 % (20.5-51.1); MCH 27.9 PG (27-31); MCHC 31.8 g/dL (33-37); MCV 87.7 FL (81-99); MONO# 0.38 X1000 (0.11-0.59); MONO% 5.4 % (1.7-9.3); MPV 9.4 FL (7.4-10.4); NEUT# 4.69 X1000 (1.4-6.5); NEUT% 66.9 % (42.2-75.2); PLT 445 X1000 (130-400); RBC 3.98 XMIL (4.7-6.1); RDW 13.1 % (11.5-14.5); WBC 7.02 X1000 (4.8-10.8)
[2019-07-06 07:49] LABS: CALCIUM 8.8 mg/dL (8.8-10.2); CREATININE 1.8 mg/dL (0.7-1.2); POTASSIUM 4.3 mmol/L (3.5-5.1)
[2019-07-06] MEDS: SPIRIVA INH SCH (08:10)
[2019-07-06] MEDS: LYRICA PO SCH ×2 (09:25→21:57)
[2019-07-06] MEDS: CATAPRES PO SCH ×2 (09:25→21:56)
[2019-07-06] MEDS: ZYRTEC PO SCH (09:25)
[2019-07-06] MEDS: TOPROL XL PO SCH (09:25)
[2019-07-06] MEDS: NORVASC PO SCH (09:26)
[2019-07-06] MEDS: HYGROTON PO SCH (09:26)
[2019-07-06] MEDS: BENICAR PO SCH (09:26)
[2019-07-06] MEDS: COLACE PO SCH ×2 (09:26→21:56)
[2019-07-06] MEDS: APRESOLINE PO SCH (09:26)
[2019-07-06] MEDS: PRILOSEC PO SCH (09:26)
[2019-07-06] MEDS ORDERED: NS 1,000 ML IV ONE (11:42)
[2019-07-06 13:36] LABS: UR CREAT RANDOM 97.5 mg/dL (14-26); UR PROT RANDOM 7.8 mg/dL
[2019-07-06] MEDS: NORCO-7.5 PO PRN ×2 (14:54→21:56)
--- NOTE | 2019-07-06 14:59 | ORTHOPAEDICS PROGRESS NOTE ---
DATE: 07/06/2019 SUBJECTIVE: Mr. Joseph complained of some forearm pain today. He says his hand and his wrist do feel better. OBJECTIVE: Right Upper Extremity Examination: Still just a little bit of swelling to the hand and wrist area, not much. Not a lot tenderness to palpation there this morning and not much erythema at all. ASSESSMENT: Right hand and wrist cellulitis. PLAN: I think Mr. Joseph continues to improve on the IV antibiotics. He is getting a little bit of pain, it seems like in his muscles in the forearm. We will continue to just watch that for now. If he is discharged, I would like to see him early this next week in clinic. cc: Reji Ellington MD
[2019-07-06] MEDS: PRAVACHOL PO SCH (21:56)
[2019-07-06] MEDS: SEROQUEL XR PO SCH (21:56)
[2019-07-07] MEDS: ZOSYN 3.375 GM in NS 50 ML IV SCH ×4 (03:15→20:16)
[2019-07-07] MEDS: PERCOCET-10 PO PRN ×4 (03:16→22:02)
--- NOTE | 2019-07-07 04:57 | PROGRESS NOTE ---
DATE: 07/06/2019 SUBJECTIVE: Patient has no major complaints, except pain is not well controlled. OBJECTIVE: Vital signs: Blood pressure is 126/59, heart rate 60, respiratory rate 18, temperature 97.7 degrees. Cardiovascular: Regular rate and rhythm. Pulmonary: Bilateral breath sounds, clear to auscultation. Gastrointestinal: Soft, nontender, nondistended. Bowel sounds are positive. Extremity: No clubbing or cyanosis. Lymphatic: No peripheral edema. Neurological: Nonfocal. LABORATORY DATA: White count 7, hemoglobin and hematocrit 11 and 34, platelets normal. Basic normal, except creatinine went up to 1.8. PROBLEM LIST: 1. Cellulitis of the right wrist and elbow. We will continue to follow. He is on Zosyn and vancomycin. Dr. Ellington is monitoring. 2. Acute kidney injury. Will stop vancomycin and monitor closely. Will stop toradol. 3. Hypertension. Appears to be stable. DISPOSITION: Home in the next, hopefully, 1 to 2 days, pending his clinical status. cc: Dangelo Rodriguez MD MTD[facility]
[2019-07-07] MEDS ORDERED: VANCOMYCIN 1 GM/NS 1 GM/250 ML IVPB IV SCH (05:00)
[2019-07-07 07:19] LABS: BASO# 0.03 X1000 (0.0-0.2); BASO% 0.4 % (0.0-0.8); EOS# 0.33 X1000 (0.0-0.7); EOS% 4.8 % (0.0-10.0); HEMATOCRIT 32.4 % (42.0-52.0); HEMOGLOBIN 10.3 g/dL (14.0-18.0); LYMPH# 1.34 X1000 (1.2-3.4); LYMPH% 19.4 % (20.5-51.1); MCH 27.7 PG (27-31); MCHC 31.8 g/dL (33-37); MCV 87.1 FL (81-99); MONO# 0.37 X1000 (0.11-0.59); MONO% 5.4 % (1.7-9.3); MPV 9.4 FL (7.4-10.4); NEUT# 4.82 X1000 (1.4-6.5); PLT 436 X1000 (130-400); RBC 3.72 XMIL (4.7-6.1); RDW 12.9 % (11.5-14.5); WBC 6.89 X1000 (4.8-10.8)
[2019-07-07] MEDS: DUONEB (A & A) INH PRN ×3 (07:33→20:06)
[2019-07-07] MEDS: SPIRIVA INH SCH (07:33)
[2019-07-07 08:19] LABS: AGAP 12; BUN 17 mg/dL (8-22); CALCIUM 9.1 mg/dL (8.8-10.2); CHLORIDE 103 mmol/L (98-107); COSMO 277; CREATININE 1.3 mg/dL (0.7-1.2); GLUCOSE 91 mg/dL (70-104); POTASSIUM 4.1 mmol/L (3.5-5.1); SODIUM 138 mmol/L (136-145); TCO2 23 mmol/L (25-35)
[2019-07-07] MEDS: NORVASC PO SCH (09:25)
[2019-07-07] MEDS: LYRICA PO SCH ×2 (09:25→20:17)
[2019-07-07] MEDS: TOPROL XL PO SCH (09:25)
[2019-07-07] MEDS: ZYRTEC PO SCH (09:25)
[2019-07-07] MEDS: APRESOLINE PO SCH (09:25)
[2019-07-07] MEDS: CATAPRES PO SCH ×2 (09:25→20:17)
[2019-07-07] MEDS: PRILOSEC PO SCH (09:25)
[2019-07-07] MEDS: COLACE PO SCH ×2 (09:25→20:16)
[2019-07-07] MEDS ORDERED: NS 1,000 ML IV ONE (11:24)
--- NOTE | 2019-07-07 12:10 | ORTHOPAEDICS PROGRESS NOTE ---
DATE: 07/07/2019 SUBJECTIVE: Mr. Joseph is lying in bed this morning. He is feeling better. Some of the pain is starting to extend up the forearm a little bit. OBJECTIVE: Right upper extremity: Really has no swelling to the wrist today. He has some wrist deformities from what looks like from his x-rays some old injuries but I really do not see any swelling today there. He does not have much tenderness palpation at all to the wrist. There is no erythema there either and he actually has decent wrist and finger range of motion. ASSESSMENT: Right hand wrist cellulitis. PLAN: I think Mr. Joseph has gotten a lot better. I am okay with him being discharged from an orthopedic standpoint. I will see him in clinic this next week. cc: Reji Ellington MD
[2019-07-07] MEDS: SEROQUEL XR PO SCH (20:16)
[2019-07-07] MEDS: PRAVACHOL PO SCH (20:16)
[2019-07-08] MEDS: ZOSYN 3.375 GM in NS 50 ML IV SCH ×4 (03:02→20:21)
[2019-07-08] MEDS: DUONEB (A & A) INH PRN ×3 (03:36→16:07)
[2019-07-08] MEDS: PERCOCET-10 PO PRN ×3 (03:41→20:21)
[2019-07-08] MEDS: SPIRIVA INH SCH (08:04)
[2019-07-08] MEDS: APRESOLINE PO SCH (08:42)
[2019-07-08] MEDS: CATAPRES PO SCH ×2 (08:42→20:20)
[2019-07-08] MEDS: NORVASC PO SCH (08:42)
[2019-07-08] MEDS: LYRICA PO SCH ×2 (08:42→20:23)
[2019-07-08] MEDS: PRILOSEC PO SCH (08:42)
[2019-07-08] MEDS: COLACE PO SCH ×2 (08:42→20:20)
[2019-07-08] MEDS: ZYRTEC PO SCH (08:42)
[2019-07-08] MEDS: TOPROL XL PO SCH (08:42)
[2019-07-08] MEDS ORDERED: NS 1,000 ML IV ONE (12:05)
--- NOTE | 2019-07-08 12:51 | PROGRESS NOTE ---
DATE: 07/08/2019 SUBJECTIVE: Patient is still complaining of severe pain in his right arm/wrist. OBJECTIVE: Vital Signs: Blood pressure is 132/68, heart rate 66, respiratory rate 18, temperature 98.2 degrees. Cardiovascular: Regular rate and rhythm. Pulmonary: Bilateral breath sounds clear to auscultation. Gastrointestinal: Abdomen soft, nontender, nondistended. Bowel sounds are positive. LABORATORY DATA: White count 7, hemoglobin and hematocrit 11 and 34. Platelets 445,000. Creatinine down to 1.3 after hydration. PROBLEM LIST: 1. Acute kidney injury may be related to nonsteroidal antiinflammatory drugs. We are going to continue to monitor very closely. Continue gentle hydration and follow. 2. Presumed septic arthritis. He is improving on antibiotics. We will continue treatment and follow. He is on day 4 of Zosyn. Pain seems to be under good control. 3. Hypertension appears to be stable. DISPOSITION: Pending his clinical status we will continue to follow closely. Anticipate discharge soon. cc: Dangelo Rodriguez MD
--- NOTE | 2019-07-08 12:53 | PROGRESS NOTE ---
DATE: 07/08/2019 SUBJECTIVE: He is still having pain in his arm. OBJECTIVE: Vital Signs: Blood pressure is 132/68, heart rate 66, respiratory rate 18, temperature 98.2 degrees. Cardiovascular: Regular rate and rhythm. Pulmonary: Bilateral breath sounds clear to auscultation. GI: Soft, nontender, nondistended. Bowel sounds are positive. LABORATORY DATA: I do not have any new data today. PROBLEM LIST: 1. Cellulitis of the right wrist, possible arthritis. Overall improved. Orthopedics feels like he is ready to go home from their standpoint. We will continue to monitor. 2. Acute kidney injury is slowly resolving. We will continue hydration and follow. Urine electrolytes are fairly inconsistent so hard to say, and his vancomycin levels are not toxic, so I think this may have been related to nonsteroidal anti-inflammatories, possibly early sepsis. 3. Hypertension is stable. DISPOSITION: He will be discharged tomorrow. cc: Dangelo Rodriguez MD
[2019-07-08 12:58] LABS: C REACTIVE PROT QUANT 88.22 mg/L (0.00-5.00); URIC ACID 3.8 mg/dL (3.4-7.0)
[2019-07-08] MEDS: SEROQUEL XR PO SCH (20:20)
[2019-07-08] MEDS: PRAVACHOL PO SCH (20:21)
[2019-07-09] MEDS: ZOSYN 3.375 GM in NS 50 ML IV SCH ×3 (03:33→14:28)
[2019-07-09] MEDS: PERCOCET-10 PO PRN ×4 (03:34→23:04)
[2019-07-09 06:56] LABS: BASO# 0.03 X1000 (0.0-0.2); BASO% 0.4 % (0.0-0.8); EOS# 0.32 X1000 (0.0-0.7); EOS% 4.7 % (0.0-10.0); HEMATOCRIT 32.8 % (42.0-52.0); HEMOGLOBIN 10.4 g/dL (14.0-18.0); LYMPH# 1.95 X1000 (1.2-3.4); LYMPH% 28.9 % (20.5-51.1); MCH 27.4 PG (27-31); MCHC 31.7 g/dL (33-37); MCV 86.5 FL (81-99); MONO# 0.67 X1000 (0.11-0.59); MONO% 9.9 % (1.7-9.3); MPV 9.6 FL (7.4-10.4); NEUT# 3.77 X1000 (1.4-6.5); NEUT% 56.1 % (42.2-75.2); PLT 354 X1000 (130-400); RBC 3.79 XMIL (4.7-6.1); RDW 13.1 % (11.5-14.5); WBC 6.74 X1000 (4.8-10.8)
[2019-07-09 07:30] LABS: AGAP 12; BUN 11 mg/dL (8-22); CALCIUM 9.2 mg/dL (8.8-10.2); CHLORIDE 100 mmol/L (98-107); COSMO 273; CREATININE 1.1 mg/dL (0.7-1.2); ESTIMATED GFR > 60; GLUCOSE 98 mg/dL (70-104); POTASSIUM 3.9 mmol/L (3.5-5.1); SODIUM 137 mmol/L (136-145); TCO2 25 mmol/L (25-35)
[2019-07-09] MEDS: DUONEB (A & A) INH PRN ×3 (07:45→19:39)
[2019-07-09] MEDS: SPIRIVA INH SCH (07:46)
[2019-07-09] MEDS: COLACE PO SCH (10:21)
[2019-07-09] MEDS: ZYRTEC PO SCH (10:21)
[2019-07-09] MEDS: CATAPRES PO SCH ×2 (10:21→23:04)
[2019-07-09] MEDS: APRESOLINE PO SCH (10:21)
[2019-07-09] MEDS: PRILOSEC PO SCH (10:21)
[2019-07-09] MEDS: NORVASC PO SCH (10:21)
[2019-07-09] MEDS: LYRICA PO SCH ×2 (10:22→23:05)
[2019-07-09] MEDS: TOPROL XL PO SCH (10:25)
[2019-07-09] MEDS ORDERED: LOMOTIL PO PRN (14:57)
--- NOTE | 2019-07-09 17:44 | PROGRESS NOTE ---
DATE: 07/09/2019 SUBJECTIVE: Today, his arm is better, but now he has diarrhea and he says he is incontinent or at least has difficulty controlling it. OBJECTIVE: Vital Signs: Blood pressure is 141/65, heart rate 62, respiratory rate 20, temperature 98.6 degrees. Cardiovascular: Regular rate and rhythm. Pulmonary: Bilateral breath sounds clear to auscultation. Gastrointestinal: Abdomen soft, nontender, nondistended. Bowel sounds are positive. LABORATORY DATA: Showed 6.7 white count, hemoglobin and hematocrit 12 and 32, platelets 354,000. Basic was normal. CRP very high 88 with sedimentation rate of 53. PROBLEM LIST: 1. Right arm and wrist cellulitis without clear septic arthritis. He has improved. I am going to switch him to oral antibiotics. 2. Diarrhea. I am suspicious that the diarrhea is related to antibiotics. We will rule out Clostridium difficile. If that is negative, then he can take Lomotil as needed and go home. 3. Acute kidney injury, that is also stabilized. 4. Hypertension is improved. DISPOSITION: Anticipate discharge tomorrow. We will stop his docusate, obviously that is not helping with the diarrhea. cc: Dangelo Rodriguez MD
[2019-07-09] MEDS: AUGMENTIN PO SCH (23:04)
[2019-07-09] MEDS: SEROQUEL XR PO SCH (23:05)
[2019-07-09] MEDS: PRAVACHOL PO SCH (23:05)
[2019-07-10] MEDS: PERCOCET-10 PO PRN ×4 (05:14→22:41)
[2019-07-10 07:05] LABS: BASO# 0.02 X1000 (0.0-0.2); BASO% 0.3 % (0.0-0.8); EOS# 0.31 X1000 (0.0-0.7); HEMOGLOBIN 10.5 g/dL (14.0-18.0); IMM GRAN# 0.02 X1000 (0.0-0.04); IMM GRAN% 0.3 % (0.0-0.5); LYMPH# 1.24 X1000 (1.2-3.4); LYMPH% 15.9 % (20.5-51.1); MCH 27.6 PG (27-31); MCHC 31.8 g/dL (33-37); MCV 86.6 FL (81-99); MONO# 0.56 X1000 (0.11-0.59); MONO% 7.2 % (1.7-9.3); NEUT# 5.65 X1000 (1.4-6.5); NEUT% 72.3 % (42.2-75.2); PLT 367 X1000 (130-400); RBC 3.81 XMIL (4.7-6.1); RDW 13.1 % (11.5-14.5)
[2019-07-10 07:23] LABS: AGAP 15; BUN 17 mg/dL (8-22); CALCIUM 9.1 mg/dL (8.8-10.2); CHLORIDE 99 mmol/L (98-107); COSMO 279; CREATININE 1.1 mg/dL (0.7-1.2); ESTIMATED GFR > 60; GLUCOSE 125 mg/dL (70-104); SODIUM 138 mmol/L (136-145); TCO2 24 mmol/L (25-35)
[2019-07-10] MEDS: PRILOSEC PO SCH (09:26)
[2019-07-10] MEDS: ZYRTEC PO SCH (09:27)
[2019-07-10] MEDS: AUGMENTIN PO SCH ×2 (09:27→20:26)
[2019-07-10] MEDS: LYRICA PO SCH ×2 (09:28→20:26)
[2019-07-10] MEDS: APRESOLINE PO SCH (09:30)
[2019-07-10] MEDS: CATAPRES PO SCH ×2 (09:31→20:26)
[2019-07-10] MEDS: TOPROL XL PO SCH (09:31)
[2019-07-10] MEDS: NORVASC PO SCH (09:31)
[2019-07-10] MEDS: SPIRIVA INH SCH (11:06)
[2019-07-10] MEDS: DUONEB (A & A) INH PRN (11:06)
[2019-07-10] MEDS ORDERED: NS 1,000 ML IV ONE (15:57)
[2019-07-10] MEDS: ROBAXIN PO PRN (20:25)
[2019-07-10] MEDS: SEROQUEL XR PO SCH (20:26)
[2019-07-10] MEDS: PRAVACHOL PO SCH (20:26)
--- NOTE | 2019-07-10 23:57 | PROGRESS NOTE ---
DATE: 07/10/2019 SUBJECTIVE: The patient is complaining of dizziness today, even though every day it is a new complaint. OBJECTIVE: Blood pressure 138/56, heart rate 66, respiratory rate 20, temperature 98.8 degrees.Cardiovascular: Regular rate and rhythm. Pulmonary: Bilateral breath sounds, clear to auscultation. GI: Soft, nontender, nondistended. Bowel sounds are positive. He has only had one bowel movement. LABORATORY DATA: White count 7.8, hemoglobin and hematocrit 10 and 33, platelets 367,000. Basic was normal. ASSESSMENT AND PLAN: 1. Right arm/wrist cellulitis. He is on Augmentin. We are going to continue to follow. 2. Diarrhea. Clostridium difficile was negative. We are going to continue to monitor. 3. Acute kidney injury, also resolved. 4. Hypertension. His blood pressure is stable. It is not too low; it may be low for him. 5. Disposition: We will analyze orthostatics tomorrow. If he is stable, then he can go home. cc: Dangelo Rodriguez MD
[2019-07-11] MEDS: PERCOCET-10 PO PRN ×5 (03:00→22:42)
[2019-07-11 06:49] LABS: BASO# 0.02 X1000 (0.0-0.2); BASO% 0.3 % (0.0-0.8); EOS% 6.8 % (0.0-10.0); HEMOGLOBIN 10.1 g/dL (14.0-18.0); LYMPH# 2.05 X1000 (1.2-3.4); LYMPH% 34.7 % (20.5-51.1); MCH 27.5 PG (27-31); MCHC 31.6 g/dL (33-37); MCV 87.2 FL (81-99); MONO# 0.56 X1000 (0.11-0.59); MONO% 9.5 % (1.7-9.3); MPV 9.7 FL (7.4-10.4); NEUT# 2.88 X1000 (1.4-6.5); NEUT% 48.7 % (42.2-75.2); PLT 362 X1000 (130-400); RBC 3.67 XMIL (4.7-6.1); RDW 13.1 % (11.5-14.5); WBC 5.91 X1000 (4.8-10.8)
[2019-07-11 07:39] LABS: AGAP 12; BUN 14 mg/dL (8-22); CHLORIDE 100 mmol/L (98-107); COSMO 276; CREATININE 1.1 mg/dL (0.7-1.2); ESTIMATED GFR > 60; GLUCOSE 98 mg/dL (70-104); POTASSIUM 4.1 mmol/L (3.5-5.1); SODIUM 138 mmol/L (136-145); TCO2 26 mmol/L (25-35)
[2019-07-11] MEDS: LYRICA PO SCH ×2 (08:00→21:22)
[2019-07-11] MEDS: PRILOSEC PO SCH (08:00)
[2019-07-11] MEDS: AUGMENTIN PO SCH ×2 (08:00→21:22)
[2019-07-11] MEDS: ZYRTEC PO SCH (08:01)
[2019-07-11] MEDS ORDERED: NORVASC PO SCH (09:00)
[2019-07-11] MEDS: TOPROL XL PO SCH (14:59)
[2019-07-11] MEDS: APRESOLINE PO SCH (14:59)
[2019-07-11] MEDS: CATAPRES PO SCH ×2 (14:59→21:22)
[2019-07-11] MEDS: SPIRIVA INH SCH (15:18)
[2019-07-11] MEDS ORDERED: VANCOMYCIN IV PER PHARMACY MISC SCH (17:15)
[2019-07-11] MEDS ORDERED: VANCOMYCIN 1.8 GM in NS 250 ML IV ONE (18:00)
[2019-07-11] MEDS ORDERED: VANCOMYCIN 1.5 GM in NS 250 ML IV SCH (18:00)
--- NOTE | 2019-07-11 18:15 | PROGRESS NOTE ---
DATE: 07/11/2019 SUBJECTIVE: Patient has no major complaints except his right arm or wrist is starting to swell again. OBJECTIVE: Blood pressure 173/69, heart rate 78, respiratory rate 20, temperature 98.9 degrees, 95% on room air.Cardiovascular: Regular rate and rhythm. Pulmonary: Bilateral breath sounds clear to auscultation. GI: Soft, nontender, nondistended. Bowel sounds are positive. LABORATORY DATA: White count 5, hemoglobin and hematocrit 10 and 32, platelets 362,000. Basic was normal. PROBLEM LIST: 1. Right arm wrist cellulitis. He is on Augmentin. We will get vancomycin and have an orthopedic reevaluation tomorrow. 2. Diarrhea is resolved. 3. Acute kidney injury is resolved. 4. Hypertension is stable. DISPOSITION: Pending ortho evaluation tomorrow. cc: Dangelo Rodriguez MD
[2019-07-11] MEDS: SEROQUEL XR PO SCH (21:22)
[2019-07-11] MEDS: PRAVACHOL PO SCH (21:25)
[2019-07-12] MEDS: PERCOCET-10 PO PRN ×5 (04:29→21:47)
[2019-07-12] MEDS: LOVENOX SUBQ SCH (05:41)
[2019-07-12 07:33] LABS: BASO# 0.04 X1000 (0.0-0.2); BASO% 0.8 % (0.0-0.8); EOS# 0.37 X1000 (0.0-0.7); EOS% 7.3 % (0.0-10.0); HEMATOCRIT 33.2 % (42.0-52.0); HEMOGLOBIN 10.3 g/dL (14.0-18.0); IMM GRAN# 0.02 X1000 (0.0-0.04); IMM GRAN% 0.4 % (0.0-0.5); LYMPH# 1.73 X1000 (1.2-3.4); LYMPH% 34.3 % (20.5-51.1); MCH 27.2 PG (27-31); MCV 87.8 FL (81-99); MONO# 0.52 X1000 (0.11-0.59); MONO% 10.3 % (1.7-9.3); MPV 9.9 FL (7.4-10.4); NEUT# 2.37 X1000 (1.4-6.5); NEUT% 46.9 % (42.2-75.2); PLT 360 X1000 (130-400); RBC 3.78 XMIL (4.7-6.1); WBC 5.05 X1000 (4.8-10.8)
[2019-07-12 08:04] LABS: AGAP 16; BUN 12 mg/dL (8-22); CALCIUM 9.3 mg/dL (8.8-10.2); CHLORIDE 98 mmol/L (98-107); COSMO 279; CREATININE 1.1 mg/dL (0.7-1.2); ESTIMATED GFR > 60; GLUCOSE 103 mg/dL (70-104); POTASSIUM 4.2 mmol/L (3.5-5.1); SODIUM 140 mmol/L (136-145); TCO2 26 mmol/L (25-35)
[2019-07-12] MEDS: SPIRIVA INH SCH (08:34)
[2019-07-12] MEDS: PRILOSEC PO SCH (08:38)
[2019-07-12] MEDS: ZYRTEC PO SCH (08:38)
[2019-07-12] MEDS: APRESOLINE PO SCH (08:38)
[2019-07-12] MEDS: LYRICA PO SCH ×2 (08:38→23:25)
[2019-07-12] MEDS: TOPROL XL PO SCH (08:38)
[2019-07-12] MEDS: CATAPRES PO SCH ×2 (08:39→23:26)
[2019-07-12] MEDS: AUGMENTIN PO SCH ×2 (08:39→23:25)
[2019-07-12] MEDS ORDERED: VANCOMYCIN 1.5 GM in NS 250 ML IV SCH (18:00)
[2019-07-12] MEDS ORDERED: NS 1,000 ML IV SCH (20:00)
--- NOTE | 2019-07-12 20:24 | PROGRESS NOTE ---
DATE: 07/12/2019 SUBJECTIVE: The patient states that his right wrist and forearm are hurting more today. There is less erythema. OBJECTIVE: Vital Signs: Blood pressure is 136/61 with a heart rate of 68, respirations are 20, temperature is 98.1 degrees, with room air saturations 95 to 97 percent. Cardiovascular: Regular rate and rhythm. S1 and S2 appreciated. Calves are nontender bilaterally. Pulmonary: Breath sounds are clear with no increased work of breathing noted. Chest rises and falls symmetrically with respiration. Gastrointestinal: Abdomen is soft, nontender, nondistended with bowel sounds in all 4 quadrants. Extremities: There is no erythema. He does have fair range of motion to his fingers and his wrist with capillary refill less than 10 seconds. Radial pulses palpable. LABS: WBC is 5 with hemoglobin 10.3, hematocrit 33.2, and platelets of 360,000. Sodium 140, potassium 4.2, BUN 12, creatinine 1.1, with a glucose of 103. PROBLEM LIST: 1. Right arm cellulitis. We will continue antibiotic coverage of vancomycin and Augmentin. Obtain a CT of his right upper extremity with contrast in the morning. 2. Diarrhea, resolved. 3. Acute kidney injury, resolved. We will start intravenous hydration of saline at 75 an hour and hydrate for CT scan in the morning. 4. Hypertension, stable. 5. Plan was discussed with Dr. Chowdary. Dictated by TAMARA Estrada for Jared Bonds MD cc: TAMARA Estrada MD
--- NOTE | 2019-07-12 21:44 | Diag Imaging Result Doc PS360 ---
EXAM: CT EXT UPPER RIGHT W/CONT - 07/12/2019 HISTORY: R/O wrist and/or elbow abscess TECHNIQUE: CT right upper extremity with intravenous contrast exam includes from the distal portion of the upper arm through the wrist. COMPARISON: None. FINDINGS: The patient apparently was not able to raise the right arm above the head and therefore had to be scanned with the arm at his side. There are severe streak artifacts from the torso which severely limit detail. While there is no discrete abscess identified, there is not enough soft tissue detail to exclude abscess. There are no discrete bony erosive or destructive changes identified. IMPRESSION: Severely limited exam due to severe streak artifacts from the patient's torso. There is no discrete abscess identified but abscess is not excluded. If abscess is suspected clinically, the patient should be rescanned with the arm above the head when he is able to cooperate. Electronically signed by Pb Gutierrez 07/12/2019 9:41 PM
[2019-07-12] MEDS: PRAVACHOL PO SCH (23:25)
[2019-07-12] MEDS: SEROQUEL XR PO SCH (23:25)
[2019-07-13] MEDS ORDERED: NS 1,000 ML IV SCH (06:00)
[2019-07-13] MEDS: LOVENOX SUBQ SCH (06:35)
[2019-07-13 07:26] LABS: AGAP 13; BUN 17 mg/dL (8-22); CALCIUM 9.7 mg/dL (8.8-10.2); CHLORIDE 97 mmol/L (98-107); COSMO 279; CREATININE 1.2 mg/dL (0.7-1.2); ESTIMATED GFR > 60; GLUCOSE 98 mg/dL (70-104); POTASSIUM 4.1 mmol/L (3.5-5.1); SODIUM 139 mmol/L (136-145); TCO2 29 mmol/L (25-35)
[2019-07-13 07:55] VITALS: BP 180/73
[2019-07-13] MEDS: PERCOCET-10 PO PRN (08:06)
[2019-07-13] MEDS: TOPROL XL PO SCH (10:52)
[2019-07-13] MEDS: LYRICA PO SCH (10:52)
[2019-07-13] MEDS: CATAPRES PO SCH (10:52)
[2019-07-13] MEDS: PRILOSEC PO SCH (10:52)
[2019-07-13] MEDS: APRESOLINE PO SCH (10:52)
[2019-07-13] MEDS: ZYRTEC PO SCH (10:52)
[2019-07-13] MEDS: AUGMENTIN PO SCH (10:52)
--- NOTE | 2019-07-13 12:10 | ORTHOPAEDICS PROGRESS NOTE ---
DATE: 07/13/2019 SUBJECTIVE: The patient is a pleasant 64-year-old male who is admitted to the hospital on 07/03/2019 with right wrist pain and cellulitis. He said he has been treated with IV antibiotics. He had some increased discomfort yesterday and a CT scan was obtained. PHYSICAL EXAM: Patient's sitting up eating his breakfast today. He has some mild swelling about the wrist. He has chronic deformities of the wrist. Some mild crepitus. He is able to flex down his fingers. Has some arthritic changes in his fingers as well. Good capillary refill distally. There is no significant swelling about the elbow today. Full range of motion. He is grossly neurovascularly intact. CT scan was reviewed and revealed no evidence of an abscess. His x-ray from 07/03/2019 was reviewed and revealed significant arthritic changes of the radiocarpal joint with obvious deformity of the scaphoid with a chronic deformity as well as scaphotrapezial joint and degenerative change along the scaphotrapezial region as well. IMPRESSION: 1. Cellulitis, right wrist, resolving. 2. Osteoarthritis, right wrist. PLAN: At this point, the patient seems to be stable from the cellulitis. He did take a pain tablet earlier which relieved pain significantly. Thus far he has had some chronic history of pain, discomfort from arthritis, and will have swelling from it periodically. Patient is stable from an orthopedic standpoint. We will be available if needed. cc: Isaac Roy MD MTDD
--- NOTE | 2019-07-13 20:42 | DISCHARGE SUMMARY ---
ADMISSION DATE: 07/03/2019 DISCHARGE DATE: 07/13/2019 DISCHARGE DIAGNOSES: 1. Right increased cellulitis, resolving. 2. Osteoarthritis of the right wrist. 3. Diarrhea, resolved. 4. Acute kidney injury, resolved. 5. Hypertension, stable. 6. History of cerebrovascular accident with some residual visual defect. 7. History of alcohol dependence with his last drink being close to a year ago. 8. History of chronic obstructive pulmonary disease (COPD), not in exacerbation. 9. Nicotine dependence. 10. Hyperlipidemia. 11. Recent small-bowel obstruction. CONSULTS: Orthopedic Surgery Department, Dr. Ellington/Dr. Roy. RADIOLOGIC STUDIES: Wrist x-ray dated 07/03/2019. Impression: No acute bony abnormalities, arthritic changes and possible effusion in the radiocarpal joint. Open extremity CT scan dated 07/12/2019. Impression: Severely limited exam due to severe streak artifact from the patient's torso. There is no discrete abscess identified, but abscess is not excluded. If abscess is suspected clinically, the patient should be rescanned with the arm above the head when he is able to cooperate. HOSPITAL COURSE: A 64-year-old male with a past medical history of hypertension, COPD, hyperlipidemia, CVA with recent a small-bowel obstruction, nicotine dependence and, as per the patient, arthritis, presented to the emergency department complaining of right wrist pain and swelling and redness. As per the patient, he woke up through the night with his wrist hurting. In the morning he noted that it was swollen and red. He had difficulty to bend his wrist secondary to pain and cannot make a complete fist secondary to pain as well. It looks like he was hospitalized between June 16 and June and he had multiple IVs during this time. He denied any drainage, any fever or chills. Chest x-ray showed arthritic changes and possible effusion in the radiocarpal joint. Orthopedic Surgery was consulted and they evaluated this patient with continued antibiotics. The patient was improving on a daily basis, to the point that on 07/07/2019, Orthopedic Surgery signed off, but we kept the patient due to acute kidney injury. At some point at the end of this hospitalization, his wrist had started to swell again. We did as upper CT that did not show any abscess, but it was not the best quality though. I reconsulted the Orthopedic Surgery Department who evaluated this patient at the bedside and they stated that the patient seems to be stable from a cellulitis and the pain today was relieved significantly. He has a history of pain, discomfort from arthritis and he has some swelling periodically. So we have decided to discharge this patient home. We will continue with p.o. antibiotics and actually I want to cover MRSA just in case, and also I will continue with pain medication, which actually he has been taking at home. He seems to be stable and he agreed with the plan. PHYSICAL EXAMINATION: Temperature 98.3 degrees, pulse 75 respiratory rate 16, blood pressure 180/73, oxygen saturation 94% on room air. HEENT: Head normocephalic, no trauma, PERRLA. Neck: Supple, no JVD, no masses. Central trachea. Chest: Clear to auscultation. No wheezing. No rales. Abdomen: Soft, nontender, nondistended. No hepatosplenomegaly. Extremities: Right wrist is slightly swollen but he is able to move the wrist and it is much better compared with yesterday. Mild pain at that moment. He is able to bend also his elbow without any difficulty. Neurological examination: Alert and oriented x3, no focal deficits. LABORATORY: Sodium 139, potassium 4.1, chloride 97, bicarbonate 29, BUN 17, creatinine 1.2, glucose 98, calcium 9.7, uric acid 5.5. DISCHARGE MEDICATIONS: Aspirin 650 mg p.o. q.6 hours, aspirin 325 mg p.o. daily, chlorthalidone 25 mg p.o. daily, clonidine 0.1 mg p.o. b.i.d., doxycycline 100 mg p.o. b.i.d., hydralazine 100 mg p.o. daily. Robaxin 500 to 1000 mg p.o. b.i.d. as needed, Toprol-XL 100 mg p.o. q.a.m., Benicar 40 mg p.o. daily, omeprazole 40 mg p.o. daily, Percocet 10 one tablet p.o. q.4 hours as needed for pain, pravastatin 20 mg p.o. at bedtime, Lyrica 75 mg p.o. b.i.d., Seroquel XR 50 mg p.o. at bedtime and Spiriva, 2 puffs, inhaler q.a.m. This patient needs to follow up with Dr. Reji Ellington on 07/16/2019 at 10 a.m. The patient understands this. cc: Jared Bonds MD MTDD
== END 2019-07-13 11:10 | disposition home or self-care (01) | DRG 603 ==
LOC: ED 10:48 → EDIPHOLD 15:34 → SUATTDRO 15:34 → 4N 17:45
PROVIDERS: ATTEND Internal Medicine